=== PATIENT | male | born 1945 | race Hispanic/Latino ===

== ENCOUNTER 2020-06-26 04:12 | Emergency (ER) | payer OTHER ==
--- OUTSIDE RECORDS SUMMARY | 2020-06-26 04:17 | XMS REPORT | Continuity of Care Document ---
:[address] [facility] t Address [address] [place] [place] [address] Care Team Providers Name Role Phone Herve Encarnacion Primary Care Physician Reynold Rendon Attending Clinician SHIV Attending Clinician Unavailable GUSTAVO JASON Attending Clinician Unavailable KILLIAN Attending Clinician Unavailable Tracey MORA Admitting Clinician Unavailable Leonor NOLAN Admitting Clinician Unavailable Payers Payer Name Policy Type Policy Number Effective Date Expiration Date S ource Problems Condition Condition Condition Status Onset Resolution Last Treating Co mments Source Name Details Category Date Date Treatment Clinician Date COPD COPD Disease Active 2017-[address] [facility] exacerb[facility] exacerbati 0-14 [facility] - on on 00:00: Medical 00 Center Pneumonia Pneumonia Disease Active 2017-[address] [facility] due to due to 0-14 [facility] - infectious infectious 00:00: Me dical organism organism 00 Center Febrile Febrile Disease Active 2017-[address] [facility] illness illness 0-13 [facility] - 00:[facility]: [facility] [place] Aspiration Aspiration Disease Active [facility] pneumonia pneumonia 10-18 [facility] - 00:00: Medical 00 [place] Hypoxemia Hypoxemia Disease Active [facility] 10-17 [facility] 00:[facility]: [facility] 00 [place] Allergies, Adverse Reactions, Alerts Allergy Allergy Status Severity Reaction(s) Onset Inactive Treating Comm ents Source Name Type Date Date Clinician [place] Propensi Active Itching [facility] Juice ty to 10-17 [facility] - adverse 00:00: Medical reaction 00 Center s Aspirin Propensi Active Hives [facility] ty to 07-28 [facility] - adverse 00:00: Medical reaction 00 [place] s Penicill Drug Active Shortness Of [facility] ins Allergy Breath 07-28 [facility] - 00:00: Medical 00 [place] Penicill DA Active [facility] ins 3-17 Clear 00:00: Celis 00 [facility] aspirin DA Active [facility] 3-17 Clear 00:00: Celis 00 [facility] azithrom DA Active [facility] ycin 3-17 Clear 00:00: Celis 00 [facility] Family History Family Member Diagnosis Comments Start Date Stop Date Source Other Colon cancer [facility] Natural sister Breast cancer [facility] Social History Social Habit Start Date Stop Date Quantity Comments Source Sex Assigned At [facility] Alcohol intake 2019-05-30 2019-05-30 [facility] - 00:[facility]00 00:00:00 alcohol (finding) [facility] Tobacco use and 2019-05-30 2019-05-30 Never used [facility] - exposure 00:00:00 00:00:00 [facility] Alcohol Comment 2017-10-17 2017-10-17 [facility] Smoking Status Start Date Stop Date Source Former smoker 2019-05-30 00:00:00 2019-05-30 00:00:00 [facility] Ordered Filled Start Stop Current Ordering Indication Dosage Frequency Signature Comments Components Source Medication Medication Date Date Medication? Clinician (SIG) Name Name omeprazole Yes [facility] (PRILOSEC[facility] 306 [facility] - 20 MG 00:00: Medical capsule 00 [place] gabapentin 2017-03 Yes 300mg Q.25D Take [address] (NEURONTIN) 0-14 mg by [facility] - 300 MG 13:12: mouth 4 Medical capsule 35 (four) Center times daily . losartan 2017-03 Yes 25mg QD Take [address] (COZAAR) 25 0-14 by mouth [facility] - MG tablet 13:12: daily. Medica l 35 [place] glipiZIDE 2017-03 Yes 5mg Take [address] (GLUCOTROL) 0-14 by mouth 2 [facility] - 5 MG tablet 13:12: (two) Medic al 35 times Center daily before meals. atorvastati 2017-03 Yes 10mg QD Take [address] n (LIPITOR) 0-14 by mouth Luke s - 10 MG 13:12: nightly. Medical tablet 35 [place] meloxicam Yes . [facility] (MOBIC) 7.5 8-22 [facility] - MG tablet 00:00: Medical 00 [place] metFORMIN Yes 1000mg 1,[address] (GLUCOPHAGE 8-22 (two) [facility] - ) 500 MG 00:00: times Medical tablet 00 daily with Center breakfast and dinner . citalopram Yes Q.5D 2 (two) [facility] (CELEXA) 20 7-13 times [facility] - MG tablet 00:00: daily . Medic al 00 [place] albuterol Yes every 6 [facility] (PROVENTIL) 7-01 (six) [facility] - 2.5 mg /3 00:00: hours as Medi jovita mL (0.083 00 needed . Center %) nebulizer solution ANORO Yes 1{puff} QD [address] ELLIPTA 5-29 daily . [facility] - 62.5-25 00:00: Medical mcg/actuati 00 Center on DsDv albuterol-i Yes 2{puff} Inhale [address] pratropium 5-08 puffs by [facility] - (COMBIVENT 00:00: mouth via Me dical RESPIMAT) 00 inhaler Center 20-100 every 6 mcg/actuati (six) on Mist hours as inhaler needed for Wheezing. Immunizations Ordered Immunization Filled Immunization Date Status Commen ts Source Name Name Pneumococcal 2017-10-[address] [facility] - Polysaccharide 00:00:00 Medical Ce nter (Pneumovax) Procedures This patient has no known procedures. Plan of Care Planned Activity Planned Date Details Comments Source Future Scheduled 2019-11-[address] [facility] - Test 00:00:00 (#1) [code = Medical Center INFLUENZA VACCINE (#1)] Future Scheduled 2018-04-[address] [facility] - Test 00:00:00 measurement Medical Center (procedure) [code = 20400247] Future Scheduled 2018-03-[address] [facility] - Test 00:00:00 WELLNESS (YEAR 2 or Medical Center FIRST YEAR if no IPPE) [code = MEDICARE ANNUAL WELLNESS (YEAR 2 or FIRST YEAR if no IPPE)] Future Scheduled 1955-08-[address] DIAB[address] EYE EXAM [facility] - Test 00:00:00 [code = DIABETIC EYE Medical Center EXAM] Future Scheduled 1955-08-16 Urine screening for [facility] - Test 00:00:00 protein (procedure) [facility] [code = 414112306] Future Scheduled [address] [facility] - Test 00:00:00 [facility] colon (procedure) [code = 574967661] Encounters Start End Encounter Admission Attending Care Care Encounter Source Date/Time Date/Time Type Type Clinicians Facility Department ID 2020-02-20 Outpatient [facility] [id number] [facility] BL 10:36:28 2020-05-20 2020-05-20 Emergency E [facility] [id number] [facility]BL 15:55:00 15:55:00 2020-01-16 2020-01-16 Outpatient [facility]BL [facility] [id number] [facility]BL 08:00:00 08:00:00 2019-12-05 2019-12-05 [facility] [id number] 00:00:00 00:00:00 [facility] [id number] Surgical [id number] Specialti [phone] es [address] [place] 2019-10-10 2019-10-10 [facility] [id number] 00:00:00 00:00:00 [facility] [id number] Surgical [id number] Specialti [phone] es 198 [place] 2019-07-29 2019-08-03 Office [facility] [id number] 08:29:01 14:21:19 Visit [facility] [id number] Surgical [id number] Specialti [phone] es 198 [place] Results Test Description Test Time Test Comments Results Result Comments Source GLUCOSE BEDSIDE TESTING 2020-02-27 11:19:00 Test Item Value Reference Range Interpretation Comme nts GLUCOSE BEDSIDE TESTING (test code = GLUBED) 217 mg/dL 70-110 H GLUCOSE BEDSIDE [id number] 07:40:00 Test Item Value Reference Range Interpretation Comments GLUCOSE BEDSIDE TESTING (test code 113 mg/dL 70-110 H = GLUBED) CBC W/AUTO [id number] 06:30:00 Test Item Value Reference Range Interpretation Comments WHITE BLOOD CELL (test code = 12.8 K/mm3 3.5-11.0 H WBC) RED BLOOD CELL (test code = 3.84 M/mm3 4.70-6.10 L RBC) HEMOGLOBIN (test code = HGB) 11.5 G/DL 12.3-15.9 L HEMATOCRIT (test code = HCT) 35.4 % 35.8-46.7 L MEAN CELL VOLUME (test code = 92.2 Fl 86.3-98.9 N MCV) MEAN CELL HGB (test code = MCH) 29.9 pg 28.9-34.4 N MEAN CELL HGB CONCETRATION 32.5 G/DL 32.1-34.5 N (test code = MCHC) RED CELL DISTRIBUTION WIDTH 13.1 SD 11.5-14.5 N (test code = RDW) PLATELET COUNT (test code = 235 K/mm3 150-450 N PLT) MEAN PLATELET VOLUME (test code 10.60 fL 7.0-9.6 H = MPV) NEUTROPHIL % (test code = NT%) 72.2 % 40-76 N IMMATURE GRANULOCYTE % (test 0.5 % 0.0-5.0 N code = IG%) LYMPHOCYTE % (test code = LY%) 15.3 % 20.5-51.1 L MONOCYTE % (test code = MO%) 9.7 % 1.7-9.3 H EOSINOPHIL % (test code = EO%) 2.1 % 0.0-6.0 N BASOPHIL % (test code = BA%) 0.2 % 0.0-2.0 N NUCLEATED RBC % (test code = 0.0 /100WBC% 0.0-1.0 N NRBC%) NEUTROPHIL # (test code = NT#) 9.3 K/mm3 1.8-7.6 H IMMATURE GRANULOCYTE # (test 0.06 x10 3/uL 0.00-0.03 H code = IG#) LYMPHOCYTE # (test code = LY#) 2.0 K/mm3 0.6-3.0 N MONOCYTE # (test code = MO#) 1.3 K/mm3 0.2-1.5 N EOSINOPHIL # (test code = EO#) 0.3 K/mm3 0.0-0.4 N BASOPHIL # (test code = BA#) 0.0 K/mm3 0.0-0.2 N NUCLEATED RBC # (test code = 0.0 K/mm3 0.00-0.01 N NRBC#) MANUAL DIFF REQUIRED (test code NO DIFF/SCN CRITERIA = MDIFF) BASIC METABOLIC [id number] 06:05:00 Test Item Value Reference Range Interpretation Comments SODIUM (test code = NA) 136 mmol/L 134-147 N POTASSIUM (test code = 3.8 mmol/L 3.4-5.0 N K) CHLORIDE (test code = 101 mmol/L 100-108 N CL) CARBON DIOXIDE (test 33 mmol/L 21-32 H code = CO2) ANION GAP (test code = 2.0 GAP calc 4.0-15.0 L GAP) GLUCOSE (test code = 117 MG/DL 70-110 H GLU) BLOOD UREA NITROGEN 23 MG/DL 7-18 H (test code = BUN) GLOMERULAR FILTRATION >=60 max estimate >60 RATE (test code = GFR) estGFR CREATININE (test code = 0.5 MG/DL 0.8-1.3 L CREAT) CALCIUM (test code = CA) 8.5 MG/DL 8.5-10.1 N CBC W/AUTO [id number] 06:04:00 Test Item Value Reference Range Interpretation Comments WHITE BLOOD CELL (test code = WBC) 12.8 K/mm3 3.5-11.0 H RED BLOOD CELL (test code = RBC) 3.84 M/mm3 4.70-6.10 L HEMOGLOBIN (test code = HGB) 11.5 G/DL 12.3-15.9 L HEMATOCRIT (test code = HCT) 35.4 % 35.8-46.7 L MEAN CELL VOLUME (test code = MCV) 92.2 Fl 86.3-98.9 N MEAN CELL HGB (test code = MCH) 29.9 pg 28.9-34.4 N MEAN CELL HGB CONCETRATION (test 32.5 G/DL 32.1-34.5 N code = MCHC) RED CELL DISTRIBUTION WIDTH (test SD 11.5-14.5 N code = RDW) PLATELET COUNT (test code = PLT) K/mm3 150-450 N MEAN PLATELET VOLUME (test code = fL 7.0-9.6 H MPV) NEUTROPHIL % (test code = NT%) % 40-76 N IMMATURE GRANULOCYTE % (test code % 0.0-5.0 N = IG%) LYMPHOCYTE % (test code = LY%) % 20.5-51.1 L MONOCYTE % (test code = MO%) % 1.7-9.3 H EOSINOPHIL % (test code = EO%) % 0.0-6.0 N BASOPHIL % (test code = BA%) % 0.0-2.0 N NUCLEATED RBC % (test code = /100WBC% 0.0-1.0 N NRBC%) NEUTROPHIL # (test code = NT#) K/mm3 1.8-7.6 H IMMATURE GRANULOCYTE # (test code x10 3/uL 0.00-0.03 H = IG#) LYMPHOCYTE # (test code = LY#) K/mm3 0.6-3.0 N MONOCYTE # (test code = MO#) K/mm3 0.2-1.5 N EOSINOPHIL # (test code = EO#) K/mm3 0.0-0.4 N BASOPHIL # (test code = BA#) K/mm3 0.0-0.2 N NUCLEATED RBC # (test code = K/mm3 0.00-0.01 N NRBC#) MANUAL DIFF REQUIRED (test code = DIFF/SCN CRITERIA MDIFF) GLUCOSE BEDSIDE [id number] 20:11:00 Test Item Value Reference Range Interpretation Comments GLUCOSE BEDSIDE TESTING (test code 248 mg/dL 70-110 H = GLUBED) GLUCOSE BEDSIDE [id number] 16:36:00 Test Item Value Reference Range Interpretation Comments GLUCOSE BEDSIDE TESTING (test code 296 mg/dL 70-110 H = GLUBED) GLUCOSE BEDSIDE [id number] 13:00:00 Test Item Value Reference Range Interpretation Comments GLUCOSE BEDSIDE TESTING (test code 275 mg/dL 70-110 H = GLUBED) GLUCOSE BEDSIDE [id number] 08:16:00 Test Item Value Reference Range Interpretation Comments GLUCOSE BEDSIDE TESTING (test code 149 mg/dL 70-110 H = GLUBED) GLUCOSE BEDSIDE [id number] 20:13:00 Test Item Value Reference Range Interpretation Comments GLUCOSE BEDSIDE TESTING (test code 201 mg/dL 70-110 H = GLUBED) GLUCOSE BEDSIDE [id number] 16:29:00 Test Item Value Reference Range Interpretation Comments GLUCOSE BEDSIDE TESTING (test code 222 mg/dL 70-110 H = GLUBED) GLUCOSE BEDSIDE [id number] 11:21:00 Test Item Value Reference Range Interpretation Comments GLUCOSE BEDSIDE TESTING (test code 222 mg/dL 70-110 H = GLUBED) GLUCOSE BEDSIDE [id number] 07:45:00 Test Item Value Reference Range Interpretation Comments GLUCOSE BEDSIDE TESTING (test code 187 mg/dL 70-110 H = GLUBED) GLUCOSE BEDSIDE [id number] 20:35:00 Test Item Value Reference Range Interpretation Comments GLUCOSE BEDSIDE TESTING (test code 225 mg/dL 70-110 H = GLUBED) GLUCOSE BEDSIDE [id number] 16:43:00 Test Item Value Reference Range Interpretation Comments GLUCOSE BEDSIDE TESTING (test code 237 mg/dL 70-110 H = GLUBED) GLUCOSE BEDSIDE [id number] 11:40:00 Test Item Value Reference Range Interpretation Comments GLUCOSE BEDSIDE TESTING (test code 218 mg/dL 70-110 H = GLUBED) GLUCOSE BEDSIDE [id number] 08:45:00 Test Item Value Reference Range Interpretation Comments GLUCOSE BEDSIDE TESTING (test code 219 mg/dL 70-110 H = GLUBED) GLUCOSE BEDSIDE [id number] 20:24:00 Test Item Value Reference Range Interpretation Comments GLUCOSE BEDSIDE TESTING (test code 124 mg/dL 70-110 H = GLUBED) ALPHA 1 [id number] 17:09:00 Test Item Value Reference Range Interpretation Comments ALPHA 1 ANTITRYPSIN 258 mg/dL 101-187 A Performe d At: DA (test code = [id number]) LabCo rp [id number] [facility] [address] [place], [place] [id number] h CN MD Ph:[phone] GLUCOSE BEDSIDE [id number] 16:45:00 Test Item Value Reference Range Interpretation Comments GLUCOSE BEDSIDE TESTING (test code 224 mg/dL 70-110 H = GLUBED) GLUCOSE BEDSIDE [id number] 14:15:00 Test Item Value Reference Range Interpretation Comments GLUCOSE BEDSIDE TESTING (test code 374 mg/dL 70-110 H = GLUBED) GLUCOSE BEDSIDE [id number] 11:13:00 Test Item Value Reference Range Interpretation Comments GLUCOSE BEDSIDE TESTING (test code 257 mg/dL 70-110 H = GLUBED) GLUCOSE BEDSIDE [id number] 07:30:00 Test Item Value Reference Range Interpretation Comments GLUCOSE BEDSIDE TESTING (test code 209 mg/dL 70-110 H = GLUBED) VANCOMYCIN [id number] 20:42:00 Test Item Value Reference Range Interpretation Comments VANCOMYCIN TROUGH (test code = 10.3 mcG/ML 10-20 N VANCT) GLUCOSE BEDSIDE [id number] 16:42:00 Test Item Value Reference Range Interpretation Comments GLUCOSE BEDSIDE TESTING (test code 190 mg/dL 70-110 H = GLUBED) GLUCOSE BEDSIDE [id number] 12:09:00 Test Item Value Reference Range Interpretation Comments GLUCOSE BEDSIDE TESTING (test code 187 mg/dL 70-110 H = GLUBED) GLUCOSE BEDSIDE [id number] 07:41:00 Test Item Value Reference Range Interpretation Comments GLUCOSE BEDSIDE TESTING (test code 159 mg/dL 70-110 H = GLUBED) Novel Coronavirus 07:25:00 Test Item Value Reference Range Interpretation Comments Novel Coronavirus Negative Negative Positive r esults are 2019 Inhouse (test indicativ e of the presence code = [id number]) ofSARS-CoV -2 RNA, clinical correlation wit h patient historyand othe r diagnostic info rmation is necessary to determinepatien t infection status. Positiv e results do not rule out bacterial infection or co -infection with other viru ses. Negative result s do not preclude SARS-C oV-2 infection andsh ould not be used as the anmol e basis for patient managementdecis ions. Negative result s must be combined with otherclinical observations, p atient history, and epidemiological information . Detection of SARS-CoV-2 RNA may be affe cted bysample collec tion methods, storag e conditions, and /or stageof infection. Shaista l RNA mutations, vacc inations, antiviraltherap eutics, antibiotics, chemotherapeuti c orimmunosuppres valerie drugs have not been e valuated for effectson d etection. Results are for the identification of SARS-CoV-2 RNA usingthe Crowell M2000 Sy stem under the FDA Emergen cy UseAuthorizatio n. The testing is perf ormed by personneltraine d in the procedures for the Tonx000 molecular diagnostic SARS-CoV-2 assa y in vitro. Novel Coronavirus 07:24:00 Test Item Value Reference Range Interpretation Comments Novel Coronavirus Negative Negative Positive r esults are 2019 Inhouse (test indicativ e of the presence code = [id number]) ofSARS-CoV -2 RNA, clinical correlation wit h patient historyand othe r diagnostic info rmation is necessary to determinepatien t infection status. Positiv e results do not rule out bacterial infection or co -infection with other viru ses. Negative result s do not preclude SARS-C oV-2 infection andsh ould not be used as the anmol e basis for patient managementdecis ions. Negative result s must be combined with otherclinical observations, p atient history, and epidemiological information . Detection of SARS-CoV-2 RNA may be affe cted bysample collec tion methods, storag e conditions, and /or stageof infection. Shaista l RNA mutations, vacc inations, antiviraltherap eutics, antibiotics, chemotherapeuti c orimmunosuppres valerie drugs have not been e valuated for effectson d etection. Results are for the identification of SARS-CoV-2 RNA usingthe Crowell M2000 Sy stem under the FDA Emergen cy UseAuthorizatio n. The testing is perf ormed by personneltraine d in the procedures for the Crowell M2000 molecular diagnostic SARS-CoV-2 assa y in vitro. NT PRO-BRAIN NATRIURETIC [id number] 06:30:00 Test Item Value Reference Range Interpretation Comments NT PRO-BRAIN NATRIURETIC PEPTI 719 PG/ML 0-100 H (test code = PROBNP) HGB [id number] 06:21:00 Test Item Value Reference Range Interpretation Comments HEMOGLOBIN (test code = HGB) 14.3 G/DL 12.3-15.9 N HEMATOCRIT (test code = HCT) 44.3 % 35.8-46.7 N GLUCOSE BEDSIDE [id number] 21:12:00 Test Item Value Reference Range Interpretation Comments GLUCOSE BEDSIDE TESTING (test code 198 mg/dL 70-110 H = GLUBED) - CTA CHEST FOR [id number] 17:42:00 [facility] 1945 Sex: M Name: SANCHEZ SALGADO [facility] : 1945 Age/S: 74 / M [address] Unit #: [id number] Loc: [place] [address] Phys: Noble Rose AGACN Acct: [id number] Dis Date: Status: ADM IN PHONE #: [phone] Exam Date: 02/21/2020 4751 FAX #: Reason: Dyspnea EXAMS: CPT: [id number] [place] [id number] Location: CT Chest with Contrast PE protocol Indication: Dyspnea. COPD. Comparison: 07/02/16. Technique: Axial images were obtained through the chest post IV contrast. Sagittal, coronal, and oblique MIPS were obtained. This examwas performed according to our departmental dose-optimization program, which includes automated exposure control, adjustment of the mA and/or kV according to patient size and/or use of iterative reconstruction technique Contrast: Dosage are not available..Findings: The cardiac silhouette is not enlarged. No pericardial effusion. Enlarged subcarinal and precarinal lymph nodes. Nonenlarged mediastinal lymph nodes are present elsewhere. The aorta is normal in caliber and tapers in a normal fashion. Mild atherosclerotic involvement and calcification. Severe cystic bronchiectasis in the lower lobes and lingula has increased only slightly since prior exam of 07/02/2016. Consolidatingpatchy infiltrates are present in the left lower lobe, right lower lobe, and right hilar region, with small infiltrates elsewhere, consistent with pneumonia. Thickening of the bronchiectatic segments in the lower lobes and lingula, with small fluid levels, also consistent withpneumonia. No pleural effusion. Pulmonary arteries are unremarkable. No evidence of pulmonary embolism or obstruction. Skeletal structures are within norm al limits for age. Chest wall is unremarkable. Visualized intra-abdominal organs unremarkable. PAGE 1 Signed Report (CONTINUED) Name: SANCHEZ SALGADO [place] : 1945 Age/S: 74 / M [address] Unit #: [id number] Loc: [place] [address] Phys: Noble Rose Acct: [id number] Dis Date: Status: ADM IN PHONE #: [phone] Exam Date: 02/21/2020 1705 FAX #: Reason: Dyspnea EXAMS: CPT: [id number] [place] [id number] <Continued> Impression: 1. No evidence of pulmonary embolism. 2. COPD with bibasilar cystic bronchiectasis. Stable mediastinal adenopathy. 3. Bilateral pneumonia with patchy consolidation in both lower lobes, lingula, and right middle lobe. Minimal infiltrates in the upper lung diaz.. at 1741 Reported and signed by: Alex Mclaughlin M.D. CC: Yifan Pagan Jr, MD; Watson Saucedo MD; Noble Rose Technologist:Deion Freedman, RT(R)(CT)(MRI) CTDI: DLP: Trnscb Date/Time: 02/21/2020 (174) [email or web address] Orig Print D/T: S: 02/21/2020 (6550) PAGE 2 Signed ReportGLUCOSE BEDSIDE [id number] 16:03:00 Test Item Value Reference Range Interpretation Comments GLUCOSE BEDSIDE TESTING (test code 163 mg/dL 70-110 H = GLUBED) PaO2/[id number] 12:35:00 Test Item Value Reference Range Interpretation Comments PaO2/FiO2 (test code = [id number]) mm/Hg >200 [id number] 12:35:00 Test Item Value Reference Range Interpretation Comments ARTERIAL BLOOD GAS PH (test 7.32 pH units 7.35-7.45 L code = PHA) ARTERIAL BLOOD GAS PCO2 59 mmHg 35-45 H (test code = PCO2A) ARTERIAL BLOOD GAS PO2 63 mmHg 80-100 L (test code = PO2A) BICARBONATE TOTAL HCO3 30.1 mmol/L 22.0-26.0 H (test code = HCO3) BASE EXCESS (test code = 2.4 mmol/L -3.0-3.0 N VERONICA) ABG O2 SATURATION (test 92 % 90-100 N code = SATA) FIO2 (test code = FIO2A) 36 % (calc) 21-100 N ABG VENT MODE (test code = Nasal Cannula Vent Mode MODEA) Descript ABG SITE (test code = Left Radial ARTKIT DESCRIPTION SITEA) MODIFIED VICKIE'S (test code Yes Circ.CHK POSITIVE = MODALL) TOTAL HGB (test code = THB) 15.2 GRAM/DL 12.0-18.0 N HGB O2 SAT (test code = 91.1 % (barb) 95.0-100.0 L HBOSAT) CARBOXYHEMOGLOBIN (test 0.9 % 0.5-1.5 N code = HOHGBT) METHEMOGLOBIN (test code = 0.5 % 0.0-0.0 H METHGB) PaO2/[id number] 12:35:00 Test Item Value Reference Range Interpretation Comments PaO2/FiO2 (test code = [id number]) 175.0 mm/Hg >200 L [id number] 12:35:00 Test Item Value Reference Range Interpretation Comments ARTERIAL BLOOD GAS PH (test 7.32 pH units 7.35-7.45 L code = PHA) ARTERIAL BLOOD GAS PCO2 59 mmHg 35-45 H (test code = PCO2A) ARTERIAL BLOOD GAS PO2 63 mmHg 80-100 L (test code = PO2A) BICARBONATE TOTAL HCO3 30.1 mmol/L 22.0-26.0 H (test code = HCO3) BASE EXCESS (test code = 2.4 mmol/L -3.0-3.0 N VERONICA) ABG O2 SATURATION (test 92 % 90-100 N code = SATA) FIO2 (test code = FIO2A) 36 % (calc) 21-100 N ABG VENT MODE (test code = Nasal Cannula Vent Mode MODEA) Descript ABG SITE (test code = Left Radial ARTKIT DESCRIPTION SITEA) MODIFIED VICKIE'S (test code Yes Circ.CHK POSITIVE = MODALL) TOTAL HGB (test code = THB) 15.2 GRAM/DL 12.0-18.0 N HGB O2 SAT (test code = 91.1 % (barb) 95.0-100.0 L HBOSAT) CARBOXYHEMOGLOBIN (test 0.9 % 0.5-1.5 N code = HOHGBT) METHEMOGLOBIN (test code = 0.5 % 0.0-0.0 H METHGB) GLUCOSE BEDSIDE [id number] 11:19:00 Test Item Value Reference Range Interpretation Comments GLUCOSE BEDSIDE TESTING (test code 132 mg/dL 70-110 H = GLUBED) - XR CHEST 1 [id number] 10:17:00 [facility] : 1945 Sex: M Name: SANCHEZ SALGADO [facility] : 1945 Age/S: 74 / M [address] Unit #: [id number] Loc: [place] [address] Phys: Negin Hope MD Acct: [id number] Dis Date: Status: ADM IN PHONE #: [phone] Exam Date: 02/21/2020 1005 FAX #: Reason: hypoxemia EXAMS:CPT: [id number] XR CHEST 1 V [id number] Fluoro Time: DAP (Gy m2): Air Kerma (mGy): EXAM: Portable chest x-ray Dictation location: C3 COMPARISON: Chest x-ray on 05/27/[address] on 07/02/2016 INDICATION: hypoxemia DISCUSSION: Reticular nodular opacities at the lung bases are increased compared to the prior exam on 05/27/2017. A background of cystic bronchiectasis in the lingula and basal segments of the lower lobes is best seen on the prior CT on 07/02/2016. No pleural effusion or pneumothorax is seen. The cardiac silhouette is with in normal limits. No acute bony abnormalities are identified. IMPRESSION: There is a background of cystic bronchiectasis in the lingula and basal segments of the lower lobes which is best seen on the prior CT in June 2016. There is increased reticular and alveolar opacity at the lung bases compared to the prior chest x-ray in May 2017, suggestive of bronchiolitis and/or bibasilar pneumonia. Electronically Signedby Galindo Lira on 02/21/2020 at 1017 Reported and signed by: Ramin Lira M.D. CC: Yifan Pagan Jr, MD; Negin Hope MD; Watson Saucedo MD PAGE 1 Signed Report Name: SANCHEZ SALGADO [place] : 1945 Age/S: 74 / M [id number] Unit #: [id number] Loc: [place] [address] Phys: Negin Hope MD Acct: [id number] Dis Date: Status: ADM IN PHONE #: [phone] ExamDate: 02/21/2020 1005 FAX #: Reason: hypoxemia EXAMS: CPT: [id number] XR CHEST 1 V [id number] Fluoro Time: DAP (Gy m2): Air Kerma (mGy): <Continued> Technologist: Priti Mg RT(R)(CT) Trnscb Date/Time: 02/21/2020 (1017) [email or web address] Orig Print D/T: S: 02/21/2020 (6792) PAGE 2 Signed ReportGLUCOSE BEDSIDE [id number] 08:11:00 Test Item Value Reference Range Interpretation Comments GLUCOSE BEDSIDE TESTING (test code = 92 mg/dL 70-110 N GLUBED) CBC W/AUTO [id number] 05:13:00 Test Item Value Reference Range Interpretation Comments WHITE BLOOD CELL 10.4 K/mm3 3.5-11.0 N (test code = WBC) RED BLOOD CELL (test 4.52 M/mm3 4.70-6.10 L code = RBC) HEMOGLOBIN (test code 13.7 G/DL 12.3-15.9 N = HGB) HEMATOCRIT (test code 43.2 % 35.8-46.7 N = HCT) MEAN CELL VOLUME 95.6 Fl 86.3-98.9 N (test code = MCV) MEAN CELL HGB (test 30.3 pg 28.9-34.4 N code = MCH) MEAN CELL HGB 31.7 G/DL 32.1-34.5 L CONCETRATION (test code = MCHC) RED CELL DISTRIBUTION 14.1 SD 11.5-14.5 N WIDTH (test code = RDW) PLATELET COUNT (test 199 K/mm3 150-450 N code = PLT) MEAN PLATELET VOLUME 10.10 fL 7.0-9.6 H (test code = MPV) NEUTROPHIL % (test 83.3 % 40-76 H code = NT%) IMMATURE GRANULOCYTE 0.3 % 0.0-5.0 N % (test code = IG%) LYMPHOCYTE % (test 5.1 % 20.5-51.1 L code = LY%) MONOCYTE % (test code 9.4 % 1.7-9.3 H = MO%) EOSINOPHIL % (test 1.1 % 0.0-6.0 N code = EO%) BASOPHIL % (test code 0.8 % 0.0-2.0 N = BA%) NUCLEATED RBC % (test 0.0 /100WBC% 0.0-1.0 N code = NRBC%) NEUTROPHIL # (test 8.6 K/mm3 1.8-7.6 H code = NT#) IMMATURE GRANULOCYTE 0.03 x10 3/uL 0.00-0.03 N # (test code = IG#) LYMPHOCYTE # (test 0.5 K/mm3 0.6-3.0 L code = LY#) MONOCYTE # (test code 1.0 K/mm3 0.2-1.5 N = MO#) EOSINOPHIL # (test 0.1 K/mm3 0.0-0.4 N code = EO#) BASOPHIL # (test code 0.1 K/mm3 0.0-0.2 N = BA#) NUCLEATED RBC # (test 0.0 K/mm3 0.00-0.01 N code = NRBC#) MANUAL DIFF REQUIRED NO DIFF/SCN CRITERIA SLIDE R LUCIEW (test code = MDIFF) CONSISTA NT WITH AUTO DIFFERENTI AL. BASIC METABOLIC [id number] 04:24:00 Test Item Value Reference Range Interpretation Comments SODIUM (test code = NA) 137 mmol/L 134-147 N POTASSIUM (test code = 5.0 mmol/L 3.4-5.0 N K) CHLORIDE (test code = 106 mmol/L 100-108 N CL) CARBON DIOXIDE (test 29 mmol/L 21-32 N code = CO2) ANION GAP (test code = 2.0 GAP calc 4.0-15.0 L GAP) GLUCOSE (test code = 90 MG/DL 70-110 N GLU) BLOOD UREA NITROGEN 10 MG/DL 7-18 N (test code = BUN) GLOMERULAR FILTRATION >=60 max estimate >60 RATE (test code = GFR) estGFR CREATININE (test code = 0.7 MG/DL 0.8-1.3 L CREAT) CALCIUM (test code = CA) 8.3 MG/DL 8.5-10.1 L CBC W/AUTO [id number] 04:18:00 Test Item Value Reference Range Interpretation Comments WHITE BLOOD CELL (test code = WBC) 10.4 K/mm3 3.5-11.0 N RED BLOOD CELL (test code = RBC) 4.52 M/mm3 4.70-6.10 L HEMOGLOBIN (test code = HGB) 13.7 G/DL 12.3-15.9 N HEMATOCRIT (test code = HCT) 43.2 % 35.8-46.7 N MEAN CELL VOLUME (test code = MCV) 95.6 Fl 86.3-98.9 N MEAN CELL HGB (test code = MCH) 30.3 pg 28.9-34.4 N MEAN CELL HGB CONCETRATION (test 31.7 G/DL 32.1-34.5 L code = MCHC) RED CELL DISTRIBUTION WIDTH (test SD 11.5-14.5 N code = RDW) PLATELET COUNT (test code = PLT) 199 K/mm3 150-450 N MEAN PLATELET VOLUME (test code = fL 7.0-9.6 H MPV) NEUTROPHIL % (test code = NT%) % 40-76 H IMMATURE GRANULOCYTE % (test code % 0.0-5.0 N = IG%) LYMPHOCYTE % (test code = LY%) % 20.5-51.1 L MONOCYTE % (test code = MO%) % 1.7-9.3 H EOSINOPHIL % (test code = EO%) % 0.0-6.0 N BASOPHIL % (test code = BA%) % 0.0-2.0 N NUCLEATED RBC % (test code = /100WBC% 0.0-1.0 N NRBC%) NEUTROPHIL # (test code = NT#) K/mm3 1.8-7.6 H IMMATURE GRANULOCYTE # (test code x10 3/uL 0.00-0.03 N = IG#) LYMPHOCYTE # (test code = LY#) K/mm3 0.6-3.0 L MONOCYTE # (test code = MO#) K/mm3 0.2-1.5 N EOSINOPHIL # (test code = EO#) K/mm3 0.0-0.4 N BASOPHIL # (test code = BA#) K/mm3 0.0-0.2 N NUCLEATED RBC # (test code = K/mm3 0.00-0.01 N NRBC#) MANUAL DIFF REQUIRED (test code = DIFF/SCN CRITERIA MDIFF) GLUCOSE BEDSIDE [id number] 19:58:00 Test Item Value Reference Range Interpretation Comments GLUCOSE BEDSIDE TESTING (test code 179 mg/dL 70-110 H = GLUBED) GLUCOSE BEDSIDE [id number] 16:49:00 Test Item Value Reference Range Interpretation Comments GLUCOSE BEDSIDE TESTING (test code = 97 mg/dL 70-110 N GLUBED) GLUCOSE BEDSIDE [id number] 12:16:00 Test Item Value Reference Range Interpretation Comments GLUCOSE BEDSIDE TESTING (test code 128 mg/dL 70-110 H = GLUBED) - XR KNEE 1 OR 2 V [id number] 11:06:00 [facility] 1945 Sex: M Name: SANCHEZ SALGADO [place] : 1945 Age/S: 74 / M [address] Unit #: [id number] Loc: [place] [address] Phys: Watson Saucedo MD Acct: [id number] Dis Date: Status: ADM IN PHONE #: [phone] Exam Date: 02/20/2020 1102 FAX #: Reason: POST OP EXAMS:CPT: [id number] XR KNEE 1 OR 2 V [place] [id number] Fluoro Time: DAP (Gy m2): Air Kerma (mGy): LOCATION: T18 EXAM: - XRKNEE 1 OR 2 V LT INDICATION: POST OP, COMPARISON: None. TECHNIQUE: AP and lateral radiographs of the left knee FINDINGS: Patient status post left total knee arthroplasty. No complication of the hardware seen. No fractures identified. Expected subcutaneous air and soft tissue swelling of the knee postoperatively. IMPRESSION: Satisfactory postop appearance of left total knee arthroplasty. at 1106 Reported and signed by: Siddhartha Wood M.D. CC: Yifan Pagan Jr, MD; Watson Saucedo MD PAGE 1 Signed Report Name: SANCHEZ SALGADO [place] : 1945 Age/S: 74 / M [address] Unit #: [id number] Loc: [place] [address] Phys: Praneeth Saucedo MD Acct: [id number] Dis Date:Status: ADM IN PHONE #: [phone] Exam Date: 02/20/2020 110 FAX #: Reason: POST OP EXAMS: CPT: [id number] XR KNEE 1 [place] 2 [place] [id number] Fluoro Time: DAP (Gy m2): Air Kerma (mGy): <Continued> Technologist: Chata Faulkner, RT(R) Trnscb Date/Time: 02/20/2020 (8686) [email or web address] Orig Print D/T: S: 02/20/2020 (2719) PAGE 2 Signed ReportBASIC METABOLIC [id number] 07:26:00 Test Item Value Reference Range Interpretation Comments SODIUM (test code = NA) 137 mmol/L 134-147 N POTASSIUM (test code = 3.8 mmol/L 3.4-5.0 N K) CHLORIDE (test code = 104 mmol/L 100-108 N CL) CARBON DIOXIDE (test 30 mmol/L 21-32 N code = CO2) ANION GAP (test code = 3.0 GAP calc 4.0-15.0 L GAP) GLUCOSE (test code = 99 MG/DL 70-110 N GLU) BLOOD UREA NITROGEN 9 MG/DL 7-18 N (test code = BUN) GLOMERULAR FILTRATION >=60 max estimate >60 RATE (test code = GFR) estGFR CREATININE (test code = 0.6 MG/DL 0.8-1.3 L CREAT) CALCIUM (test code = CA) 8.5 MG/DL 8.5-10.1 N CBC W/AUTO [id number] 07:19:00 Test Item Value Reference Range Interpretation Comments WHITE BLOOD CELL (test code = 9.3 K/mm3 3.5-11.0 N WBC) RED BLOOD CELL (test code = 4.74 M/mm3 4.70-6.10 N RBC) HEMOGLOBIN (test code = HGB) 14.2 G/DL 12.3-15.9 N HEMATOCRIT (test code = HCT) 42.9 % 35.8-46.7 N MEAN CELL VOLUME (test code = 90.5 Fl 86.3-98.9 N MCV) MEAN CELL HGB (test code = MCH) 30.0 pg 28.9-34.4 N MEAN CELL HGB CONCETRATION 33.1 G/DL 32.1-34.5 N (test code = MCHC) RED CELL DISTRIBUTION WIDTH 13.7 SD 11.5-14.5 N (test code = RDW) PLATELET COUNT (test code = 237 K/mm3 150-450 N PLT) MEAN PLATELET VOLUME (test code 9.90 fL 7.0-9.6 H = MPV) NEUTROPHIL % (test code = NT%) 79.0 % 40-76 H IMMATURE GRANULOCYTE % (test 0.3 % 0.0-5.0 N code = IG%) LYMPHOCYTE % (test code = LY%) 10.1 % 20.5-51.1 L MONOCYTE % (test code = MO%) 7.0 % 1.7-9.3 N EOSINOPHIL % (test code = EO%) 3.0 % 0.0-6.0 N BASOPHIL % (test code = BA%) 0.6 % 0.0-2.0 N NUCLEATED RBC % (test code = 0.0 /100WBC% 0.0-1.0 N NRBC%) NEUTROPHIL # (test code = NT#) 7.4 K/mm3 1.8-7.6 N IMMATURE GRANULOCYTE # (test 0.03 x10 3/uL 0.00-0.03 N code = IG#) LYMPHOCYTE # (test code = LY#) 0.9 K/mm3 0.6-3.0 N MONOCYTE # (test code = MO#) 0.7 K/mm3 0.2-1.5 N EOSINOPHIL # (test code = EO#) 0.3 K/mm3 0.0-0.4 N BASOPHIL # (test code = BA#) 0.1 K/mm3 0.0-0.2 N NUCLEATED RBC # (test code = 0.0 K/mm3 0.00-0.01 N NRBC#) MANUAL DIFF REQUIRED (test code NO DIFF/SCN CRITERIA = MDIFF) PROTHROMBIN [id number] 07:15:00 Test Item Value Reference Range Interpretation Comments PT PATIENT (test code = PTP) 11.0 SECONDS 9.3-12.9 N INTERNATIONAL NORMAL RATIO 0.97 INR Unit 0.8-1.2 N (test code = INR) THROMBOPLASTIN TIME [id number] 07:15:00 Test Item Value Reference Range Interpretation Comments THROMBOPLASTIN TIME PARTIAL 35.9 SECONDS 26-35 H (test code = PTT) GLUCOSE BEDSIDE [id number] 06:58:00 Test Item Value Reference Range Interpretation Comments GLUCOSE BEDSIDE TESTING (test code 104 mg/dL 70-110 N = GLUBED) COVID 19 INHOUSE [id number] 06:31:00 Test Item Value Reference Range Interpretation Comments COVID 19 INHOUSE AG NEGATIVE Negative Per manu facturer, (test code = negative result s should [id number]) be treated aspr esumptive and, if inconsi stent with clinical signs andsymptoms or necessary for patient man agement, should betested with an alternative mol ecular assay. Negative resultsdo not preclude SA RS-CoV-2 infection and s hould not be usedas the s ole basis for patient man agement decisions. Neg ative results should be considered in t he context of apatient's r ecent exposures, hist ory, presence of cli nicalsigns and symptoms co nsistent with COVID-19. UA RFLX MICR CULT IF [id number] 06:15:00 Test Item Value Reference Range Interpretation Comments UA COLOR (test code = COLU) YELLOW discript YEL/STRAW UA APPEARANCE (test code = CLEAR discript CLEAR APPU) UA GLUCOSE DIPSTICK (test NEGATIVE mg/dL NEG code = DGLUU) UA BILIRUBIN DIPSTICK (test NEGATIVE mg/dL NEG code = BILU) UA KETONE DIPSTICK (test NEGATIVE mg/dL NEG code = KETU) UA SPECIFIC GRAVITY (test 1.025 SG 1.005-1.030 code = SGU) UA BLOOD DIPSTICK (test NEGATIVE mg/DL NEG code = SOLA) UA PH DIPSTICK (test code = 6.0 pH UNITS 5.0-7.0 JOSE) UA PROTEIN DIPSTICK (test NEGATIVE mg/dL NEG code = PROU) UA UROBILINIOGEN DIPSTICK 0.2 mg/dL <2.0 (test code = URO) UA NITRITE DIPSTICK (test NEGATIVE SCREEN NEG code = ATILIO) UA LEUKOCYTE ESTERASE NEGATIVE Leuk/mcL NEGATIVE DIPSTICK (test code = LEUU) Indication for culture: RiskForSepsis-no oth srcSOURCE OF URINE: CLEAN CATCH UA RFLX MICR CULT IF [id number] 06:14:00 Test Item Value Reference Range Interpretation Comments UA COLOR (test code = COLU) YELLOW discript YEL/STRAW UA APPEARANCE (test code = CLEAR discript CLEAR APPU) UA GLUCOSE DIPSTICK (test NEGATIVE mg/dL NEG code = DGLUU) UA BILIRUBIN DIPSTICK (test NEGATIVE mg/dL NEG code = BILU) UA KETONE DIPSTICK (test NEGATIVE mg/dL NEG code = KETU) UA SPECIFIC GRAVITY (test 1.025 SG 1.005-1.030 code = SGU) UA BLOOD DIPSTICK (test NEGATIVE mg/DL NEG code = SOLA) UA PH DIPSTICK (test code = 6.0 pH UNITS 5.0-7.0 JOSE) UA PROTEIN DIPSTICK (test NEGATIVE mg/dL NEG code = PROU) UA UROBILINIOGEN DIPSTICK 0.2 mg/dL <2.0 (test code = URO) UA NITRITE DIPSTICK (test NEGATIVE SCREEN NEG code = ATILIO) UA LEUKOCYTE ESTERASE NEGATIVE Leuk/mcL NEGATIVE DIPSTICK (test code = LEUU) UA CULTURE NEEDED? (test Criteria Culture CHK code = UACULT) Indication for culture: RiskForSepsis-no oth srcSOURCE OF URINE: CLEAN CATCH B-TYPE NATRIURETIC FACTOR (BNP)[id number] 12:44:00 Test Item Value Reference Range Interpretation Comments B-TYPE NATRIURETIC PEPTIDE (BEAKER) 26 pg/mL 0-100 (test code = 700) RAPID TROPONIN [id number] 12:44:00 Test Item Value Reference Range Interpretation Comments RAPID TROPONIN I (BEAKER) (test code < ng/mL <0.05 = 1483) [id number] 12:44:00 Test Item Value Reference Range Interpretation Comments D-DIMER QUANTITATIVE (BEAKER) 0.71 MG/L FEU <0.50 H (test code = 671) REGARDING D-DIMER RESULTS: Results of this D-Dimer test should always be interpreted in conjunction with the patient's medical history, clinical presentation and other findings. DVT clinical diagnosis should not be based on the results of INNOVANCE D-Dimer alone.PT/[id number] 12:44:00 Test Item Value Reference Range Interpretation Comments PROTIME (BEAKER) (test code = 10.6 seconds 9.8-12.0 759) INR (BEAKER) (test code = 370) 1.0 <=5.9 PARTIAL THROMBOPLASTIN TIME 31.8 seconds 25.8-34.5 (BEAKER) (test code = 760) RECOMMENDED COUMADIN/WARFARIN INR THERAPY RANGESSTANDARD DOSE: 2.0 - 3.0 Includes: PROPHYLAXIS forvenous thrombosis, systemic embolization; TREATMENT for venous thrombosis and/or pulmonary embolus.HIGH RISK: Target INR is 2.5-3.5 for patients with mechanical heart valves.BASIC METABOLIC [id number] 12:30:00 Test Item Value Reference Range Interpretation Comments SODIUM (BEAKER) (test 136 meq/L 135-148 code = 381) POTASSIUM (BEAKER) 4.2 meq/L 3.6-5.5 (test code = 379) CHLORIDE (BEAKER) 99 meq/L 98-106 (test code = 382) CO2 (BEAKER) (test 31 meq/L 24-32 code = 355) BLOOD UREA NITROGEN 11 mg/dL 10-26 (BEAKER) (test code = 354) CREATININE (BEAKER) 0.80 mg/dL 0.50-1.20 (test code = 358) GLUCOSE RANDOM 128 mg/dL 70-110 H (BEAKER) (test code = 652) CALCIUM (BEAKER) 8.0 mg/dL 8.5-10.5 L (test code = 697) EGFR (BEAKER) (test INSUFFIC IENT CLINICAL code = 1092) DATA TO CALCULA TE ESTIMATED GFR. CBC W/PLT COUNT & AUTO [id number] 12:25:00 Test Item Value Reference Range Interpretation Comments WHITE BLOOD CELL COUNT (BEAKER) 7.6 K/ L 4.0-10.0 (test code = 775) RED BLOOD CELL COUNT (BEAKER) 4.92 M/ L 4.20-5.80 (test code = 761) HEMOGLOBIN (BEAKER) (test code = 14.9 GM/DL 13.0-16.8 410) HEMATOCRIT (BEAKER) (test code = 44.3 % 40.0-50.0 411) MEAN CORPUSCULAR VOLUME (BEAKER) 90.2 fL 82.0-98.0 (test code = 753) MEAN CORPUSCULAR HEMOGLOBIN 30.3 pg 27.0-33.0 (BEAKER) (test code = 751) MEAN CORPUSCULAR HEMOGLOBIN CONC 33.6 GM/DL 32.0-36.0 (BEAKER) (test code = 752) RED CELL DISTRIBUTION WIDTH 14.5 % 10.3-14.2 H (BEAKER) (test code = 412) PLATELET COUNT (BEAKER) (test 229 K/CU MM 150-430 code = 756) MEAN PLATELET VOLUME (BEAKER) 7.7 fL 6.5-10.5 (test code = 754) NEUTROPHILS RELATIVE PERCENT 75 % (BEAKER) (test code = 429) LYMPHOCYTES RELATIVE PERCENT 14 % (BEAKER) (test code = 430) MONOCYTES RELATIVE PERCENT 7 % (BEAKER) (test code = 431) EOSINOPHILS RELATIVE PERCENT 3 % (BEAKER) (test code = 432) BASOPHILS RELATIVE PERCENT 1 % (BEAKER) (test code = 437) NEUTROPHILS ABSOLUTE COUNT 5.72 K/ L 1.80-8.00 (BEAKER) (test code = 670) LYMPHOCYTES ABSOLUTE COUNT 1.10 K/ L 1.48-4.50 L (BEAKER) (test code = 414) MONOCYTES ABSOLUTE COUNT (BEAKER) 0.51 K/ L 0.00-1.30 (test code = 415) EOSINOPHILS ABSOLUTE COUNT 0.24 K/ L 0.00-0.50 (BEAKER) (test code = 416) BASOPHILS ABSOLUTE COUNT (BEAKER) 0.05 K/ L 0.00-0.20 (test code = 417) RAD, CHEST, 2 [id number] 11:30:00Reason for exam:->ASTHMAShould this be performed at the bedside?->NoFINAL REPORT INDICATION: ASTHMA COMPARISON: None TECHNIQUE: Frontal and lateral views of the chest. FINDINGS: Lungs and pleura: Mild bibasilar subsegmental atelectasis superimposed on background of honeycombing and reticulation. Focal wedge-shaped opacity within the left upper lobe, favored to represent air trapping and atelectasis. No effusion.Heart and mediastinum: Normal heart size. Unremarkable mediastinal contours.Osseous structures: No acute abnormality.Additional findings: None. Signed: Susan Morales MDReport Verified Date/Time: 05/30/2019 11:30:30 Reading Location:[facility] Radiology Reading Room SPUTUM CULTURE + GRAM STAIN 2018-01-09 12:57:00 Test Item Value Reference Range Interpretation Comments CULTURE (BEAKER) PSEUDOMONAS A 4+ Pseudomo stephanie (test code = 1095) AERUGINOSA aeruginos a Amikacin (test code Susceptible 0-16 S = 1) , Resistant <0 or >16 Aztreonam (test Susceptible 0-8 , S code = 32) Resistant <0 or >8 Cefepime (test code Susceptible 0-8 , S = 51) Resistant <0 or >8 Ceftazidime (test Susceptible 0-8 , S code = 27) Resistant <0 or >8 Ciprofloxacin (test Susceptible 0-1 , R code = 7) Resistant <0 or >1 Gentamicin (test Susceptible 0-4 , R code = 18) Resistant <0 or >4 Levofloxacin (test Susceptible 0-2 , R code = 22) Resistant <0 or >2 Piperacillin (test Susceptible 0-16 S code = 24) , Resistant <0 or >16 Piperacillin + Susceptible 0-16 S Tazobactam (test , Resistant <0 or code = 29) >16 Tobramycin (test Susceptible 0-4 , R code = 25) Resistant <0 or >4 CULTURE (BEAKER) PSEUDOMONAS A 4+ Pseudomo stephanie (test code = 1095) AERUGINOSA aeruginos aof a second type Amikacin (test code Susceptible 0-16 R = 1) , Resistant <0 or >16 Aztreonam (test Susceptible 0-8 , R code = 32) Resistant <0 or >8 Cefepime (test code Susceptible 0-8 , R = 51) Resistant <0 or >8 Ceftazidime (test Susceptible 0-8 , R code = 27) Resistant <0 or >8 Ciprofloxacin (test Susceptible 0-1 , R code = 7) Resistant <0 or >1 Gentamicin (test Susceptible 0-4 , R code = 18) Resistant <0 or >4 Levofloxacin (test Susceptible 0-2 , R code = 22) Resistant <0 or >2 Meropenem (test Susceptible 0-2 , R code = 34) Resistant <0 or >2 Piperacillin (test Susceptible 0-16 R code = 24) , Resistant <0 or >16 Piperacillin + Susceptible 0-16 S Tazobactam (test , Resistant <0 or code = 29) >16 Tobramycin (test Susceptible 0-4 , R code = 25) Resistant <0 or >4 GRAM STAIN RESULT <1+ WBCs (BEAKER) (test code = 1123) GRAM STAIN RESULT 5-10 epithelial (BEAKER) (test code cells = 353781) GRAM STAIN RESULT 1+ gram negative (BEAKER) (test code rods = 060407) GRAM STAIN RESULT <1+ gram positive (BEAKER) (test code cocci in pairs = 309491) GRAM STAIN RESULT <1+ gram positive (BEAKER) (test code rods = 427843) 4+ Normal respiratory neetu presentBLOOD [id number] 11:00:00 Test Item Value Reference Range Interpretation Comments CULTURE (BEAKER) (test No growth in 5 days code = 1095) BLOOD [id number] 11:00:00 Test Item Value Reference Range Interpretation Comments CULTURE (BEAKER) (test No growth in 5 days code = 1095) RESPIRATORY PANEL [id number] 09:18:00 Test Item Value Reference Range Interpretation Comments HUMAN METAPNEUMOVIRUS Not detected Not detected, (BEAKER) (test code = Equivocal 2683) RHINOVIRUS (BEAKER) Not detected Not detected, (test code = 2684) Equivocal INFLUENZA A (BEAKER) Not detected Not detected, (test code = 2685) Equivocal INFLUENZA A (NO SUBTYPE) Not detected, (test code = 3606) Equivocal INFLUENZA A SUBTYPE H1 Not detected, (BEAKER) (test code = Equivocal 2686) INFLUENZA A SUBTYPE H3 Not detected, (BEAKER) (test code = Equivocal 2687) INFLUENZA A SUBTYPE Not detected, H1-2009 (BEAKER) (test Equivocal code = 3198) INFLUENZA B (BEAKER) Not detected Not detected, (test code = 2688) Equivocal RESPIRATORY SYNCYTIAL Not detected Not detected, VIRUS (BEAKER) (test Equivocal code = 3199) PARAINFLUENZA VIRUS 1 Not detected Not detected, (BEAKER) (test code = Equivocal 2691) PARAINFLUENZA VIRUS 2 Not detected Not detected, (BEAKER) (test code = Equivocal 2692) PARAINFLUENZA VIRUS 3 Not detected Not detected, (BEAKER) (test code = Equivocal 2693) PARAINFLUENZA VIRUS 4 Not detected Not detected, (BEAKER) (test code = Equivocal 3200) ADENOVIRUS (BEAKER) Not detected Not detected, (test code = 2694) Equivocal CORONAVIRUS 229E Not detected Not detected, (BEAKER) (test code = Equivocal 3201) CORONAVIRUS HKU1 Not detected Not detected, Droplet (BEAKER) (test code = Equivocal isolat ion. 3202) Consider stopping antibiotics. CORONAVIRUS NL63 Not detected Not detected, (BEAKER) (test code = Equivocal 3203) CORONAVIRUS OC43 Detected Not detected, A Droplet (BEAKER) (test code = Equivocal isolat ion. 3204) Consider stopping antibiotics. BORDETELLA PERTUSSIS Not detected Not detected, (BEAKER) (test code = Equivocal 3205) CHLAMYDOPHILA PNEUMONIAE Not detected Not detected, (BEAKER) (test code = Equivocal 3206) MYCOPLASMA PNEUMONIAE Not detected Not detected, (BEAKER) (test code = Equivocal 3207) Other viruses and bacteria not targeted by this PCR panel cannot be excluded; therefore clinical correlation and follow up of serology, culture results, and other molecular studies is required. The results are not intended to be used as the sole means for clinical diagnosis or patient management decisions. This sample was tested at the [facility] using the [employer] Respiratory Panel. It is FDA cleared and has been verified and approved by the [facility] for clinical use on nasal swab specimens. It is not FDA-cleared for use on bronchial wash/lavage samples. However, for this sample type, validation was performed and test characteristics were determined and approved, by [facility] for clinical use under the Clinical Laboratory Improvement Amendments (CLIA) of 1988 requirements. Therefore, FDA clearance isnot required. This laboratory is CLIA- certified and [employer] ([employer])-accredited to perform high complexity testing.STREP PNEUMONIAE [id number] 11:42:00 Test Item Value Reference Range Interpretation Comments STREP PNEUMONIAE Presumptive negative Presumptive negative ANTIGEN (BEAKER) for pneumococcal for pneumococcal (test code = 1615) pneumonia - see pneumonia - see comment commen Presumptive negative for pneumococcal pneumonia, suggesting no current or recent pneumococcal infection. Infection due to S. pneumoniae cannot be ruled out since the antigen present in the sample may be below the detection limit of the test. LEGIONELLA ANTIGEN, [id number] 11:41:00 Test Item Value Reference Range Interpretation Comments L. PNEUMOPHILA Negative - see Negative fo r L. SEROGP 1 UR AG comment pneumophila (HCRISTA) (test code serogrou p 1 antigen, = 1156) suggesting no r ecent or current infe ction with this serog roup. Legionellosis c annot be ruled out si nce other serogroup s and species may cau se disease. POCT-GLUCOSE [id number] 08:07:00 Test Item Value Reference Range Interpretation Comments POC-GLUCOSE METER 301 mg/dL 70-110 H Notified R Joe CONTEH/TESTED (CHRISTA) (test code = AT [facility] [address] [place] [address] 1538) [facility] [id number] POCT-GLUCOSE [id number] 20:36:00 Test Item Value Reference Range Interpretation Comments POC-GLUCOSE METER 215 mg/dL 70-110 H TESTED AT [place] [address] ([facility]) (test code = [facility] 1538) [id number] POCT-GLUCOSE [id number] 17:48:00 Test Item Value Reference Range Interpretation Comments POC-GLUCOSE METER 123 mg/dL 70-110 H TESTED AT [place] [address] ([facility]) (test code = [facility] 1538) [address] RAPID [id number] 14:15:00 Test Item Value Reference Range Interpretation Comments RAPID MYOGLOBIN (BEAKER) (test code 65 ng/mL <107 = 2237) B-TYPE NATRIURETIC FACTOR (BNP)2018-01-02 14:14:00 Test Item Value Reference Range Interpretation Comments B-TYPE NATRIURETIC PEPTIDE (BEAKER) 59 pg/mL 0-100 (test code = 700) RAPID TROPONIN [id number] 14:14:00 Test Item Value Reference Range Interpretation Comments RAPID TROPONIN I (BEAKER) (test code < ng/mL <0.05 = 1483) RAPID [id number] 14:14:00 Test Item Value Reference Range Interpretation Comments RAPID CKMB (BEAKER) (test code = 1.3 ng/mL 0.0-4.3 1482) RAPID INFLUENZA A&B [id number] 14:12:00 Test Item Value Reference Range Interpretation Comments RAPID INFLUENZA A AG (BEAKER) Negative Negative, Inconclusive (test code = 1622) RAPID INFLUENZA B AG (BEAKER) Negative Negative, Inconclusive (test code = 1623) COMPREHENSIVE METABOLIC [id number] 14:09:00 Test Item Value Reference Range Interpretation Comments TOTAL PROTEIN 7.1 gm/dL 6.0-8.5 (BEAKER) (test code = 770) ALBUMIN (BEAKER) 3.8 g/dL 3.5-5.0 (test code = 1145) ALKALINE PHOSPHATASE 57 U/L 30-115 (BEAKER) (test code = 346) BILIRUBIN TOTAL 0.3 mg/dL 0.1-1.2 (BEAKER) (test code = 377) SODIUM (BEAKER) 138 meq/L 135-148 (test code = 381) POTASSIUM (BEAKER) 4.0 meq/L 3.6-5.5 (test code = 379) CHLORIDE (BEAKER) 99 meq/L 98-106 (test code = 382) CO2 (BEAKER) (test 27 meq/L 24-32 code = 355) BLOOD UREA NITROGEN 17 mg/dL 10-26 (BEAKER) (test code = 354) CREATININE (BEAKER) 0.63 mg/dL 0.50-1.20 (test code = 358) GLUCOSE RANDOM 212 mg/dL 70-110 H (BEAKER) (test code = 652) CALCIUM (BEAKER) 8.6 mg/dL 8.5-10.5 (test code = 697) AST (SGOT) (BEAKER) 24 U/L 5-40 (test code = 353) ALT (SGPT) (BEAKER) 24 U/L 5-50 (test code = 347) EGFR (BEAKER) (test mL/min/1.73 INSUFFIC IENT code = 1092) sq m CLINICAL DATA T O CALCULATE ESTIM ATED GFR. LACTIC ACID, VENOUS, WHOLE [id number] 14:05:00 Test Item Value Reference Range Interpretation Comments LACTATE BLOOD VENOUS (2) (BEAKER) 1.5 mmol/L 0.5-2.2 (test code = 2872) Effective 07/25/2015: Units/Reference Range ChangeNew: 0.5-2.2 mmol/L Previous: 5-18 mg/dLRAD, CHEST, 2 [id number] 14:04:00Reason for exam:->SHORTNESS OF BREATHReason for exam:->COUGHReason for exam:->SHOULDER PAINShould this be performed at the bedside?->NoFINAL REPORT Chest, two views. MEDICAL HISTORY: Cough, shoulder pain. Comparison Study: None available. FINDINGS: The cardiac silhouette is unremarkable. A 2.7 cm opacity seen inthe peripheral portion of the left lower lung field, slightly smaller than on previous. There is also opacity in the right costophrenic angle region. Increasing fissural markings are seen in the remaining lung diaz. No pleural effusion or pneumothorax is seen. Degenerative changes are noted. IMPRESSION: Increased interstitial markings with some focal opacities including an opacity in the left peripheral lower lung which is less pronounced than on previous. Signed: Jose Daniel Royeport VerifiedDate/Time: 01/02/2018 14:04:47 Reading Location: [address] Ortho Consult Reading Room CBC W/PLT COUNT & AUTO [id number] 14:02:00 Test Item Value Reference Range Interpretation Comments WHITE BLOOD CELL COUNT (BEAKER) 10.8 K/ L 4.0-10.0 H (test code = 775) RED BLOOD CELL COUNT (BEAKER) 5.28 M/ L 4.20-5.80 (test code = 761) HEMOGLOBIN (BEAKER) (test code = 15.9 GM/DL 13.0-16.8 410) HEMATOCRIT (BEAKER) (test code = 48.0 % 40.0-50.0 411) MEAN CORPUSCULAR VOLUME (BEAKER) 90.8 fL 82.0-98.0 (test code = 753) MEAN CORPUSCULAR HEMOGLOBIN 30.0 pg 27.0-33.0 (BEAKER) (test code = 751) MEAN CORPUSCULAR HEMOGLOBIN CONC 33.1 GM/DL 32.0-36.0 (BEAKER) (test code = 752) RED CELL DISTRIBUTION WIDTH 12.6 % 10.3-14.2 (BEAKER) (test code = 412) PLATELET COUNT (BEAKER) (test 177 K/CU MM 150-430 code = 756) MEAN PLATELET VOLUME (BEAKER) 8.3 fL 6.5-10.5 (test code = 754) NEUTROPHILS RELATIVE PERCENT 78 % (BEAKER) (test code = 429) LYMPHOCYTES RELATIVE PERCENT 10 % (BEAKER) (test code = 430) MONOCYTES RELATIVE PERCENT 8 % (BEAKER) (test code = 431) EOSINOPHILS RELATIVE PERCENT 3 % (BEAKER) (test code = 432) BASOPHILS RELATIVE PERCENT 2 % (BEAKER) (test code = 437) NEUTROPHILS ABSOLUTE COUNT 8.49 K/ L 1.80-8.00 H (BEAKER) (test code = 670) LYMPHOCYTES ABSOLUTE COUNT 1.03 K/ L 1.48-4.50 L (BEAKER) (test code = 414) MONOCYTES ABSOLUTE COUNT (BEAKER) 0.87 K/ L 0.00-1.30 (test code = 415) EOSINOPHILS ABSOLUTE COUNT 0.28 K/ L 0.00-0.50 (BEAKER) (test code = 416) BASOPHILS ABSOLUTE COUNT (BEAKER) 0.16 K/ L 0.00-0.20 (test code = 417) AFB CULTURE + [id number] 15:07:00 Test Item Value Reference Range Interpretation Comments CULTURE (BEAKER) (test No acid-fast bacilli code = 1095) isolated in 42 days AFB SMEAR (BEAKER) No acid fast bacilli (test code = 994) seen AFB CULTURE + [id number] 15:07:00 Test Item Value Reference Range Interpretation Comments CULTURE (BEAKER) (test No acid-fast bacilli code = 1095) isolated in 42 days AFB SMEAR (BEAKER) No acid fast bacilli (test code = 994) seen FUNGUS CULTURE + [id number] 16:48:00 Test Item Value Reference Range Interpretation Comments CULTURE (BEAKER) (test No fungus isolated in code = 1095) 28 days FUNGUS SMEAR (BEAKER) No fungi seen (test code = 1406) FUNGUS CULTURE + [id number] 16:48:00 Test Item Value Reference Range Interpretation Comments CULTURE (BEAKER) (test No fungus isolated in code = 1095) 28 days FUNGUS SMEAR (BEAKER) No fungi seen (test code = 1406) POCT-GLUCOSE [id number] 07:42:00 Test Item Value Reference Range Interpretation Comments POC-GLUCOSE METER 110 mg/dL 70-110 TESTED AT [facility] 67[address] (BEAKER) (test code = [place] 1538) [address] BASIC METABOLIC [id number] 06:47:00 Test Item Value Reference Range Interpretation Comments SODIUM (BEAKER) 139 meq/L 136-145 (test code = 381) POTASSIUM (BEAKER) 3.7 meq/L 3.5-5.1 (test code = 379) CHLORIDE (BEAKER) 97 meq/L 98-107 L (test code = 382) CO2 (BEAKER) (test 35 meq/L 22-29 H code = 355) BLOOD UREA NITROGEN 17 mg/dL 7-21 (BEAKER) (test code = 354) CREATININE (BEAKER) 0.72 mg/dL 0.57-1.25 (test code = 358) GLUCOSE RANDOM 66 mg/dL 70-105 L (BEAKER) (test code = 652) CALCIUM (BEAKER) 9.1 mg/dL 8.4-10.2 (test code = 697) EGFR (BEAKER) (test mL/min/1.73 INSUFFIC IENT CLINICAL code = 1092) sq m DATA TO CALCULA TE ESTIMATED GFR. [id number] 06:32:00 Test Item Value Reference Range Interpretation Comments MAGNESIUM (BEAKER) (test code = 1.9 mg/dL 1.6-2.6 627) CBC W/PLT COUNT & AUTO [id number] 05:58:00 Test Item Value Reference Range Interpretation Comments WHITE BLOOD CELL COUNT (BEAKER) 12.1 K/ L 3.5-10.5 H (test code = 775) RED BLOOD CELL COUNT (BEAKER) 5.27 M/ L 4.63-6.08 (test code = 761) HEMOGLOBIN (BEAKER) (test code = 15.5 GM/DL 13.7-17.5 410) HEMATOCRIT (BEAKER) (test code = 47.0 % 40.1-51.0 411) MEAN CORPUSCULAR VOLUME (BEAKER) 89.2 fL 79.0-92.2 (test code = 753) MEAN CORPUSCULAR HEMOGLOBIN 29.4 pg 25.7-32.2 (BEAKER) (test code = 751) MEAN CORPUSCULAR HEMOGLOBIN CONC 33.0 GM/DL 32.3-36.5 (BEAKER) (test code = 752) RED CELL DISTRIBUTION WIDTH 12.8 % 11.6-14.4 (BEAKER) (test code = 412) PLATELET COUNT (BEAKER) (test 184 K/CU MM 150-450 code = 756) MEAN PLATELET VOLUME (BEAKER) 9.7 fL 9.4-12.4 (test code = 754) NUCLEATED RED BLOOD CELLS 0 /100 WBC 0-0 (BEAKER) (test code = 413) NEUTROPHILS RELATIVE PERCENT 67 % (BEAKER) (test code = 429) LYMPHOCYTES RELATIVE PERCENT 20 % (BEAKER) (test code = 430) MONOCYTES RELATIVE PERCENT 10 % (BEAKER) (test code = 431) EOSINOPHILS RELATIVE PERCENT 2 % (BEAKER) (test code = 432) BASOPHILS RELATIVE PERCENT 0 % (BEAKER) (test code = 437) NEUTROPHILS ABSOLUTE COUNT 8.05 K/ L 1.78-5.38 H (BEAKER) (test code = 670) LYMPHOCYTES ABSOLUTE COUNT 2.39 K/ L 1.32-3.57 (BEAKER) (test code = 414) MONOCYTES ABSOLUTE COUNT (BEAKER) 1.22 K/ L 0.30-0.82 H (test code = 415) EOSINOPHILS ABSOLUTE COUNT 0.26 K/ L 0.04-0.54 (BEAKER) (test code = 416) BASOPHILS ABSOLUTE COUNT (BEAKER) 0.03 K/ L 0.01-0.08 (test code = 417) IMMATURE GRANULOCYTES-RELATIVE 1 % 0-1 PERCENT (BEAKER) (test code = 2801) POCT-GLUCOSE [id number] 21:27:00 Test Item Value Reference Range Interpretation Comments POC-GLUCOSE METER 367 mg/dL 70-110 H Notified R Joe CONTEH/TESTED ([facility]) (test code = AT [facility] [address]) [facility] [id number] POCT-GLUCOSE [id number] 17:46:00 Test Item Value Reference Range Interpretation Comments POC-GLUCOSE METER 254 mg/dL 70-110 H TESTED AT [place] [address] ([facility]) (test code = MELO [place] [facility] 1538) [address] POCT-GLUCOSE [id number] 12:10:00 Test Item Value Reference Range Interpretation Comments POC-GLUCOSE METER 136 mg/dL 70-110 H TESTED AT [place] [address] (BEAKER) (test code = M[place] [facility] 1538) [address] BLOOD [id number] 11:00:00 Test Item Value Reference Range Interpretation Comments CULTURE (BEAKER) (test No growth in 5 days code = 1095) BLOOD [id number] 11:00:00 Test Item Value Reference Range Interpretation Comments CULTURE (BEAKER) (test No growth in 5 days code = 1095) BRONCHIAL CULTURE + GRAM [id number] 09:52:00 Test Item Value Reference Range Interpretation Comments CULTURE A 4+ Same organis m has (BEAKER) (test been isolated from code = 1095) cultures(s) of the same body site withi n 3 days. Repeat identification and susceptibility testing performed only after consultation wi th the clinical microb iology laboratory.Refe r to previous cultur e ofPseudomonas aeruginosamucoi d colony type GRAM STAIN 3+ WBCs RESULT (BEAKER) (test code = 1123) GRAM STAIN 2+ gram negative RESULT (BEAKER) rods (test code = 289136) <1+ Normal respiratory neetu presentSPUTUM CULTURE + GRAM [id number] 09:40:00 Test Item Value Reference Range Interpretation Comments CULTURE (BEAKER) PSEUDOMONAS A 4+ Pseudomo stephanie (test code = 1095) AERUGINOSA aeruginos a (MUCOID-PHENOTYPE) (Mucoid-p henotype ) Amikacin (test code Susceptible S = 1) 0-16 , Resistant <0 or >16 Aztreonam (test code Susceptible 0-8 R = 32) , Resistant <0 or >8 Cefepime (test code Susceptible 0-8 R = 51) , Resistant <0 or >8 Ceftazidime (test Susceptible 0-8 R code = 27) , Resistant <0 or >8 Ciprofloxacin (test Susceptible 0-1 R code = 7) , Resistant <0 or >1 Doripenem (test code Susceptible 0-2 R = 100) , Resistant <0 or >2 Gentamicin (test Susceptible 0-4 S code = 18) , Resistant <0 or >4 Imipenem (test code Susceptible 0-2 S = 19) , Resistant <0 or >2 Levofloxacin (test Susceptible 0-2 R code = 22) , Resistant <0 or >2 Meropenem (test code Susceptible 0-2 R = 34) , Resistant <0 or >2 Piperacillin (test Susceptible R code = 24) 0-16 , Resistant <0 or >16 Piperacillin + Susceptible S Tazobactam (test 0-16 , code = 29) Resistant <0 or >16 Tobramycin (test Susceptible 0-4 S code = 25) , Resistant <0 or >4 CULTURE (BEAKER) METHICILLIN A 2+ Methicil erich (test code = 1095) RESISTANT resistant STAPHYLOCOCCUS Staphylococcu s AUREUS aureus Clindamycin (test S code = 10) Erythromycin (test R code = 4) Linezolid (test code S = 40) Nitrofurantoin (test S code = 23) Oxacillin (test code R = 14) Rifampin (test code S = 43) Tetracycline (test S code = 2) Trimethoprim + S Sulfamethoxazole (test code = 47) Vancomycin (test S code = 13) GRAM STAIN RESULT 4+ White blood (BEAKER) (test code cells seen = 1123) GRAM STAIN RESULT 0-5 epithelial (BEAKER) (test code cells = 104077) GRAM STAIN RESULT 4+ gram negative (BEAKER) (test code rods = 832247) GRAM STAIN RESULT <1+ gram positive (BEAKER) (test code rods = 100888) GRAM STAIN RESULT 4+ gram positive (BEAKER) (test code cocci in chains, = 614457) pairs and clusters 4+ Normal respiratory neetu presentPOCT-GLUCOSE [id number] 08:02:00 Test Item Value Reference Range Interpretation Comments POC-GLUCOSE METER 198 mg/dL 70-[address] [facility] [address] (BEAKER) (test code = [place] 1538) [address] BASIC METABOLIC [id number] 07:06:00 Test Item Value Reference Range Interpretation Comments SODIUM (BEAKER) 138 meq/L 136-145 (test code = 381) POTASSIUM (BEAKER) 3.7 meq/L 3.5-5.1 (test code = 379) CHLORIDE (BEAKER) 100 meq/L 98-107 (test code = 382) CO2 (BEAKER) (test 31 meq/L 22-29 H code = 355) BLOOD UREA NITROGEN 16 mg/dL 7-21 (BEAKER) (test code = 354) CREATININE (BEAKER) 0.71 mg/dL 0.57-1.25 (test code = 358) GLUCOSE RANDOM 127 mg/dL 70-105 H (BEAKER) (test code = 652) CALCIUM (BEAKER) 9.1 mg/dL 8.4-10.2 (test code = 697) EGFR (BEAKER) (test mL/min/1.73 INSUFFIC IENT CLINICAL code = 1092) sq m DATA TO CALCULA TE ESTIMATED GFR. [id number] 06:33:00 Test Item Value Reference Range Interpretation Comments MAGNESIUM (BEAKER) (test code = 2.0 mg/dL 1.6-2.6 627) CBC W/PLT COUNT & AUTO [id number] 05:54:00 Test Item Value Reference Range Interpretation Comments WHITE BLOOD CELL COUNT (BEAKER) 14.9 K/ L 3.5-10.5 H (test code = 775) RED BLOOD CELL COUNT (BEAKER) 5.15 M/ L 4.63-6.08 (test code = 761) HEMOGLOBIN (BEAKER) (test code = 15.5 GM/DL 13.7-17.5 410) HEMATOCRIT (BEAKER) (test code = 46.2 % 40.1-51.0 411) MEAN CORPUSCULAR VOLUME (BEAKER) 89.7 fL 79.0-92.2 (test code = 753) MEAN CORPUSCULAR HEMOGLOBIN 30.1 pg 25.7-32.2 (BEAKER) (test code = 751) MEAN CORPUSCULAR HEMOGLOBIN CONC 33.5 GM/DL 32.3-36.5 (BEAKER) (test code = 752) RED CELL DISTRIBUTION WIDTH 12.7 % 11.6-14.4 (BEAKER) (test code = 412) PLATELET COUNT (BEAKER) (test 186 K/CU MM 150-450 code = 756) MEAN PLATELET VOLUME (BEAKER) 9.8 fL 9.4-12.4 (test code = 754) NUCLEATED RED BLOOD CELLS 0 /100 WBC 0-0 (BEAKER) (test code = 413) NEUTROPHILS RELATIVE PERCENT 79 % (BEAKER) (test code = 429) LYMPHOCYTES RELATIVE PERCENT 12 % (BEAKER) (test code = 430) MONOCYTES RELATIVE PERCENT 8 % (BEAKER) (test code = 431) EOSINOPHILS RELATIVE PERCENT 0 % (BEAKER) (test code = 432) BASOPHILS RELATIVE PERCENT 0 % (BEAKER) (test code = 437) NEUTROPHILS ABSOLUTE COUNT 11.77 K/ L 1.78-5.38 H (BEAKER) (test code = 670) LYMPHOCYTES ABSOLUTE COUNT 1.72 K/ L 1.32-3.57 (BEAKER) (test code = 414) MONOCYTES ABSOLUTE COUNT (BEAKER) 1.19 K/ L 0.30-0.82 H (test code = 415) EOSINOPHILS ABSOLUTE COUNT 0.04 K/ L 0.04-0.54 (BEAKER) (test code = 416) BASOPHILS ABSOLUTE COUNT (BEAKER) 0.04 K/ L 0.01-0.08 (test code = 417) IMMATURE GRANULOCYTES-RELATIVE 1 % 0-1 PERCENT (BEAKER) (test code = 2801) POCT-GLUCOSE [id number] 21:54:00 Test Item Value Reference Range Interpretation Comments POC-GLUCOSE METER 199 mg/dL 70-[address] [facility] 67[address] ([facility]) (test code = [place] [facility] 1538) [address] BRONCHIAL CULTURE + GRAM [id number] 17:45:00 Test Item Value Reference Range Interpretation Comments CULTURE (BEAKER) A <1+ Same or ganism has (test code = been isolated f rom 1095) cultures(s) of the same body site within 3 days. Repeat identification and susceptibility testing performed only after consultation wi th the clinical microb iology laboratory.Refe r to previous cultur e ofMethicillin resistant Staphylococcus aureus GRAM STAIN 2+ WBCs RESULT (BEAKER) (test code = 1123) GRAM STAIN 3+ gram negative RESULT (BEAKER) rods (test code = 356041) GRAM STAIN <1+ gram RESULT (BEAKER) positive cocci (test code = in pairs and 483351) clusters 1+ Normal respiratory neetu presentPOCT-GLUCOSE [id number] 16:39:00 Test Item Value Reference Range Interpretation Comments POC-GLUCOSE METER 296 mg/dL 70-[address] [facility] 67[address] ([facility]) (test code = [place] [facility] 1538) [address] POCT-GLUCOSE [id number] 11:55:00 Test Item Value Reference Range Interpretation Comments POC-GLUCOSE METER 290 mg/dL 70-110 H [facility] ([facility]) (test code = [place] 1538) [address] POCT-GLUCOSE [id number] 07:38:00 Test Item Value Reference Range Interpretation Comments POC-GLUCOSE METER 258 mg/dL 70-[address] [facility] 67[address] ([facility]) (test code = [place] 1538) [address] BASIC METABOLIC [id number] 05:44:00 Test Item Value Reference Range Interpretation Comments SODIUM (BEAKER) 136 meq/L 136-145 (test code = 381) POTASSIUM (BEAKER) 4.1 meq/L 3.5-5.1 (test code = 379) CHLORIDE (BEAKER) 96 meq/L 98-107 L (test code = 382) CO2 (BEAKER) (test 32 meq/L 22-29 H code = 355) BLOOD UREA NITROGEN 18 mg/dL 7-21 (BEAKER) (test code = 354) CREATININE (BEAKER) 0.81 mg/dL 0.57-1.25 (test code = 358) GLUCOSE RANDOM 268 mg/dL 70-105 H (BEAKER) (test code = 652) CALCIUM (BEAKER) 9.6 mg/dL 8.4-10.2 (test code = 697) EGFR (BEAKER) (test mL/min/1.73 INSUFFIC IENT CLINICAL code = 1092) sq m DATA TO CALCULA TE ESTIMATED GFR. [id number] 05:38:00 Test Item Value Reference Range Interpretation Comments MAGNESIUM (BEAKER) (test code = 2.1 mg/dL 1.6-2.6 627) CBC W/PLT COUNT & AUTO [id number] 05:35:00 Test Item Value Reference Range Interpretation Comments WHITE BLOOD CELL COUNT (BEAKER) 13.3 K/ L 3.5-10.5 H (test code = 775) RED BLOOD CELL COUNT (BEAKER) 5.14 M/ L 4.63-6.08 (test code = 761) HEMOGLOBIN (BEAKER) (test code = 15.3 GM/DL 13.7-17.5 410) HEMATOCRIT (BEAKER) (test code = 45.6 % 40.1-51.0 411) MEAN CORPUSCULAR VOLUME (BEAKER) 88.7 fL 79.0-92.2 (test code = 753) MEAN CORPUSCULAR HEMOGLOBIN 29.8 pg 25.7-32.2 (BEAKER) (test code = 751) MEAN CORPUSCULAR HEMOGLOBIN CONC 33.6 GM/DL 32.3-36.5 (BEAKER) (test code = 752) RED CELL DISTRIBUTION WIDTH 12.6 % 11.6-14.4 (BEAKER) (test code = 412) PLATELET COUNT (BEAKER) (test 199 K/CU MM 150-450 code = 756) MEAN PLATELET VOLUME (BEAKER) 9.8 fL 9.4-12.4 (test code = 754) NUCLEATED RED BLOOD CELLS 0 /100 WBC 0-0 (BEAKER) (test code = 413) NEUTROPHILS RELATIVE PERCENT 93 % (BEAKER) (test code = 429) LYMPHOCYTES RELATIVE PERCENT 3 % (BEAKER) (test code = 430) MONOCYTES RELATIVE PERCENT 2 % (BEAKER) (test code = 431) EOSINOPHILS RELATIVE PERCENT 0 % (BEAKER) (test code = 432) BASOPHILS RELATIVE PERCENT 0 % (BEAKER) (test code = 437) NEUTROPHILS ABSOLUTE COUNT 12.30 K/ L 1.78-5.38 H (BEAKER) (test code = 670) LYMPHOCYTES ABSOLUTE COUNT 0.42 K/ L 1.32-3.57 L (BEAKER) (test code = 414) MONOCYTES ABSOLUTE COUNT (BEAKER) 0.30 K/ L 0.30-0.82 (test code = 415) EOSINOPHILS ABSOLUTE COUNT 0.00 K/ L 0.04-0.54 L (BEAKER) (test code = 416) BASOPHILS ABSOLUTE COUNT (BEAKER) 0.02 K/ L 0.01-0.08 (test code = 417) IMMATURE GRANULOCYTES-RELATIVE 2 % 0-1 H PERCENT (BEAKER) (test code = 2801) ANTI-NUCLEAR ANTIBODY (IRVIN)2017-10-22 04:07:00 Test Item Value Reference Range Interpretation Comments ANTI-NUCLEAR ANTIBODY (IRVIN) (BEAKER) Negative Negative (test code = 418) Test performed by IFA method.Test performed by IFA method.POCT-GLUCOSE METER 2017-10-21 21:22:00 Test Item Value Reference Range Interpretation Comments POC-GLUCOSE METER 330 mg/dL 70-[address] [facility] 67[address] ([facility]) (test code = [place] 1538) [address] POCT-GLUCOSE [id number] 17:44:00 Test Item Value Reference Range Interpretation Comments POC-GLUCOSE METER 206 mg/dL 70-[address] [facility] 67[address] (BEAKER) (test code = [place] [facility] 1538) [address] SPIN/CONCENTRATION [id number] 16:39:00 Test Item Value Reference Range Interpretation Comments CONCENTRATION CHARGED (BEAKER) (test Done code = 2657) SPIN/CONCENTRATION [id number] 16:39:00 Test Item Value Reference Range Interpretation Comments CONCENTRATION CHARGED (BEAKER) (test Done code = 2657) POCT-GLUCOSE [id number] 11:57:00 Test Item Value Reference Range Interpretation Comments POC-GLUCOSE METER 227 mg/dL 70-[address] [facility] 67[address] ([facility]) (test code = [place] [facility] 1538) [address] RHEUMATOID FACTOR AB, REFLEX TO [id number] 08:01:00 Test Item Value Reference Range Interpretation Comments RHEUMATOID FACTOR (BEAKER) (test Negative code = 573) POCT-GLUCOSE [id number] 07:53:00 Test Item Value Reference Range Interpretation Comments POC-GLUCOSE METER 216 mg/dL 70-[address] [facility] 67[address] (BEAKER) (test code = [place] [facility] 1538) [address] BASIC METABOLIC [id number] 06:57:00 Test Item Value Reference Range Interpretation Comments SODIUM (BEAKER) 135 meq/L 136-145 L (test code = 381) POTASSIUM (BEAKER) 4.2 meq/L 3.5-5.1 (test code = 379) CHLORIDE (BEAKER) 96 meq/L 98-107 L (test code = 382) CO2 (BEAKER) (test 32 meq/L 22-29 H code = 355) BLOOD UREA NITROGEN 18 mg/dL 7-21 (BEAKER) (test code = 354) CREATININE (BEAKER) 0.79 mg/dL 0.57-1.25 (test code = 358) GLUCOSE RANDOM 239 mg/dL 70-105 H (BEAKER) (test code = 652) CALCIUM (BEAKER) 9.6 mg/dL 8.4-10.2 (test code = 697) EGFR (BEAKER) (test mL/min/1.73 INSUFFIC IENT CLINICAL code = 1092) sq m DATA TO CALCULA TE ESTIMATED GFR. CBC W/PLT COUNT & AUTO [id number] 06:51:00 Test Item Value Reference Range Interpretation Comments WHITE BLOOD CELL COUNT (BEAKER) 13.6 K/ L 3.5-10.5 H (test code = 775) RED BLOOD CELL COUNT (BEAKER) 5.12 M/ L 4.63-6.08 (test code = 761) HEMOGLOBIN (BEAKER) (test code = 14.9 GM/DL 13.7-17.5 410) HEMATOCRIT (BEAKER) (test code = 45.7 % 40.1-51.0 411) MEAN CORPUSCULAR VOLUME (BEAKER) 89.3 fL 79.0-92.2 (test code = 753) MEAN CORPUSCULAR HEMOGLOBIN 29.1 pg 25.7-32.2 (BEAKER) (test code = 751) MEAN CORPUSCULAR HEMOGLOBIN CONC 32.6 GM/DL 32.3-36.5 (BEAKER) (test code = 752) RED CELL DISTRIBUTION WIDTH 12.8 % 11.6-14.4 (BEAKER) (test code = 412) PLATELET COUNT (BEAKER) (test 213 K/CU MM 150-450 code = 756) MEAN PLATELET VOLUME (BEAKER) 10.3 fL 9.4-12.4 (test code = 754) NUCLEATED RED BLOOD CELLS 0 /100 WBC 0-0 (BEAKER) (test code = 413) NEUTROPHILS RELATIVE PERCENT 92 % (BEAKER) (test code = 429) LYMPHOCYTES RELATIVE PERCENT 5 % (BEAKER) (test code = 430) MONOCYTES RELATIVE PERCENT 3 % (BEAKER) (test code = 431) EOSINOPHILS RELATIVE PERCENT 0 % (BEAKER) (test code = 432) BASOPHILS RELATIVE PERCENT 0 % (BEAKER) (test code = 437) NEUTROPHILS ABSOLUTE COUNT 12.49 K/ L 1.78-5.38 H (BEAKER) (test code = 670) LYMPHOCYTES ABSOLUTE COUNT 0.63 K/ L 1.32-3.57 L (BEAKER) (test code = 414) MONOCYTES ABSOLUTE COUNT (BEAKER) 0.35 K/ L 0.30-0.82 (test code = 415) EOSINOPHILS ABSOLUTE COUNT 0.00 K/ L 0.04-0.54 L (BEAKER) (test code = 416) BASOPHILS ABSOLUTE COUNT (BEAKER) 0.02 K/ L 0.01-0.08 (test code = 417) IMMATURE GRANULOCYTES-RELATIVE 1 % 0-1 PERCENT (AKER) (test code = 2801) [id number] 06:50:00 Test Item Value Reference Range Interpretation Comments MAGNESIUM (BEPAUL) (test code = 2.2 mg/dL 1.6-2.6 627) POCT-GLUCOSE [id number] 21:07:00 Test Item Value Reference Range Interpretation Comments POC-GLUCOSE METER 274 mg/dL 70-110 H TESTED AT [place] [address] ([facility]) (test code = MELO Doherty [facility] 1538) [id number] POCT-GLUCOSE [id number] 17:34:00 Test Item Value Reference Range Interpretation Comments POC-GLUCOSE METER 284 mg/dL 70-110 H TESTED AT [place] [address] ([facility]) ([facility] code = [facility] 1538) [address] [id number] 15:49:00Medical Cytology Report Case: [id number] Authorizing Provider: Sulaiman Ayala MD Collected: 10/19/2017 0858 Ordering Location: [address] Received: 10/20/2017 1047 Service Pathologist: James Adame MD Specimen: Lingula LUNG, LINGULA BAL (CYTOSPINS): - UNSATISFACTORY: INSUFFICIENT PULMONARY ELEMENTS PREDOMINANTLY INFLAMMATION Signing Pathologist Direct Phone Line: [phone] signed by James Adame MD on 10/20/2017 at 3:49 [id number], LINGULA BAL22 mls in cytorich red; 4 cytospinsCollected: [id number]: [id number] [facility], Department of Pathology, [address] [place] [id number], [facility], [address] [place] [id number], MZBM-GLUCOSE [id number] 12:25:00 Test Item Value Reference Range Interpretation Comments POC-GLUCOSE METER 246 mg/dL 70-110 H TESTED AT [place] [address] ([facility]) (test code = MELO Doherty [facility] 1538) [address] CYTOLOGY [id number] 12:00:00 Test Item Value Reference Range Interpretation Comments CYTOLOGY RESULT POINTER See Separate Report (CHRISTA) (test code = 2629) BASIC METABOLIC [id number] 07:46:00 Test Item Value Reference Range Interpretation Comments SODIUM (BEAKER) 133 meq/L 136-145 L (test code = 381) POTASSIUM (BEAKER) 4.9 meq/L 3.5-5.1 (test code = 379) CHLORIDE (BEAKER) 95 meq/L 98-107 L (test code = 382) CO2 (BEAKER) (test 30 meq/L 22-29 H code = 355) BLOOD UREA NITROGEN 18 mg/dL 7-21 (BEAKER) (test code = 354) CREATININE (BEAKER) 0.84 mg/dL 0.57-1.25 (test code = 358) GLUCOSE RANDOM 265 mg/dL 70-105 H (BEAKER) (test code = 652) CALCIUM (BEAKER) 9.6 mg/dL 8.4-10.2 (test code = 697) EGFR (BEAKER) (test mL/min/1.73 INSUFFIC IENT CLINICAL code = 1092) sq m DATA TO CALCULA TE ESTIMATED GFR. POCT-GLUCOSE [id number] 07:38:00 Test Item Value Reference Range Interpretation Comments POC-GLUCOSE METER 318 mg/dL 70-[address] [facility] [address] ([facility]) (test code = MELO Doherty [facility] 1538) [address] [id number] 07:09:00 Test Item Value Reference Range Interpretation Comments MAGNESIUM (BEAKER) (test code = 2.3 mg/dL 1.6-2.6 627) CBC W/PLT COUNT & AUTO [id number] 06:53:00 Test Item Value Reference Range Interpretation Comments WHITE BLOOD CELL COUNT (BEAKER) 13.2 K/ L 3.5-10.5 H (test code = 775) RED BLOOD CELL COUNT (BEAKER) 5.04 M/ L 4.63-6.08 (test code = 761) HEMOGLOBIN (BEAKER) (test code = 14.9 GM/DL 13.7-17.5 410) HEMATOCRIT (BEAKER) (test code = 44.7 % 40.1-51.0 411) MEAN CORPUSCULAR VOLUME (BEAKER) 88.7 fL 79.0-92.2 (test code = 753) MEAN CORPUSCULAR HEMOGLOBIN 29.6 pg 25.7-32.2 (BEAKER) (test code = 751) MEAN CORPUSCULAR HEMOGLOBIN CONC 33.3 GM/DL 32.3-36.5 (BEAKER) (test code = 752) RED CELL DISTRIBUTION WIDTH 12.8 % 11.6-14.4 (BEAKER) (test code = 412) PLATELET COUNT (BEAKER) (test 189 K/CU MM 150-450 code = 756) MEAN PLATELET VOLUME (BEAKER) 10.2 fL 9.4-12.4 (test code = 754) NUCLEATED RED BLOOD CELLS 0 /100 WBC 0-0 (BEAKER) (test code = 413) NEUTROPHILS RELATIVE PERCENT 95 % (BEAKER) (test code = 429) LYMPHOCYTES RELATIVE PERCENT 3 % (BEAKER) (test code = 430) MONOCYTES RELATIVE PERCENT 1 % (BEAKER) (test code = 431) EOSINOPHILS RELATIVE PERCENT 0 % (BEAKER) (test code = 432) BASOPHILS RELATIVE PERCENT 0 % (BEAKER) (test code = 437) NEUTROPHILS ABSOLUTE COUNT 12.49 K/ L 1.78-5.38 H (BEAKER) (test code = 670) LYMPHOCYTES ABSOLUTE COUNT 0.40 K/ L 1.32-3.57 L (BEAKER) (test code = 414) MONOCYTES ABSOLUTE COUNT (BEAKER) 0.17 K/ L 0.30-0.82 L (test code = 415) EOSINOPHILS ABSOLUTE COUNT 0.00 K/ L 0.04-0.54 L (BEAKER) (test code = 416) BASOPHILS ABSOLUTE COUNT (BEAKER) 0.03 K/ L 0.01-0.08 (test code = 417) IMMATURE GRANULOCYTES-RELATIVE 1 % 0-1 PERCENT (BEAKER) (test code = 2801) POCT-GLUCOSE [id number] 21:21:00 Test Item Value Reference Range Interpretation Comments POC-GLUCOSE METER 322 mg/dL 70-110 H Notified R Joe CONTEH/TESTED (AKER) (test code = AT [facility] [address] [address]) [facility] 7[address] 0 POCT-GLUCOSE [id number] 17:40:00 Test Item Value Reference Range Interpretation Comments POC-GLUCOSE METER 304 mg/dL 70-[address] [facility] [address] (BEAKER) (test code = MELO Doherty [place] 1538) [address] POCT-GLUCOSE [id number] 11:55:00 Test Item Value Reference Range Interpretation Comments POC-GLUCOSE METER 126 mg/dL 70-[address] [facility] [address] (BEAKER) (test code = MELO Doherty [place] 1538) [address] RESPIRATORY PANEL [id number] 10:56:00 Test Item Value Reference Range Interpretation Comments HUMAN METAPNEUMOVIRUS Not detected Not detected, (BEAKER) (test code = Inconclusive 2683) RHINOVIRUS (BEAKER) (test Not detected Not detected, code = 2684) Inconclusive INFLUENZA A (BEAKER) (test Not detected Not detected, code = 2685) Inconclusive INFLUENZA A SUBTYPE H1 Not detected Not detected, (BEAKER) (test code = Inconclusive 2686) INFLUENZA A SUBTYPE H3 Not detected Not detected, (BEAKER) (test code = Inconclusive 2687) INFLUENZA A SUBTYPE Not detected Not detected, H1-2009 (BEAKER) (test Inconclusive code = 3198) INFLUENZA B (BEAKER) (test Not detected Not detected, code = 2688) Inconclusive RESPIRATORY SYNCYTIAL Not detected Not detected, VIRUS (BEAKER) (test code Inconclusive = 3199) PARAINFLUENZA VIRUS 1 Not detected Not detected, (BEAKER) (test code = Inconclusive 2691) PARAINFLUENZA VIRUS 2 Not detected Not detected, (BEAKER) (test code = Inconclusive 2692) PARAINFLUENZA VIRUS 3 Not detected Not detected, (BEAKER) (test code = Inconclusive 2693) PARAINFLUENZA VIRUS 4 Not detected Not detected, (BEAKER) (test code = Inconclusive 3200) ADENOVIRUS (BEAKER) (test Not detected Not detected, code = 2694) Inconclusive CORONAVIRUS 229E (BEAKER) Not detected Not detected, (test code = 3201) Inconclusive CORONAVIRUS HKU1 (BEAKER) Not detected Not detected, (test code = 3202) Inconclusive CORONAVIRUS NL63 (BEAKER) Not detected Not detected, (test code = 3203) Inconclusive CORONAVIRUS OC43 (BEAKER) Not detected Not detected, (test code = 3204) Inconclusive BORDETELLA PERTUSSIS Not detected Not detected, (BEAKER) (test code = Inconclusive 3205) CHLAMYDOPHILA PNEUMONIAE Not detected Not detected, (BEAKER) (test code = Inconclusive 3206) MYCOPLASMA PNEUMONIAE Not detected Not detected, (BEAKER) (test code = Inconclusive 3207) BASIC METABOLIC [id number] 09:24:00 Test Item Value Reference Range Interpretation Comments SODIUM (BEAKER) 138 meq/L 136-145 (test code = 381) POTASSIUM (BEAKER) 4.0 meq/L 3.5-5.1 (test code = 379) CHLORIDE (BEAKER) 101 meq/L 98-107 (test code = 382) CO2 (BEAKER) (test 28 meq/L 22-29 code = 355) BLOOD UREA NITROGEN 19 mg/dL 7-21 (BEAKER) (test code = 354) CREATININE (BEAKER) 0.78 mg/dL 0.57-1.25 (test code = 358) GLUCOSE RANDOM 128 mg/dL 70-105 H (BEAKER) (test code = 652) CALCIUM (BEAKER) 8.8 mg/dL 8.4-10.2 (test code = 697) EGFR (BEAKER) (test mL/min/1.73 INSUFFIC IENT CLINICAL code = 1092) sq m DATA TO CALCULA TE ESTIMATED GFR. POCT-GLUCOSE [id number] 09:11:00 Test Item Value Reference Range Interpretation Comments POC-GLUCOSE METER 130 mg/dL 70-[address] [facility] [address] ([facility]) (test code = [place] 1538) [id number] 09:01:00 Test Item Value Reference Range Interpretation Comments MAGNESIUM (BEAKER) (test code = 2.1 mg/dL 1.6-2.6 627) POCT-GLUCOSE [id number] 08:13:00 Test Item Value Reference Range Interpretation Comments POC-GLUCOSE METER 138 mg/dL 70-[address] [facility] [address] ([facility]) (test code = [place] 1538) [address] CBC W/PLT COUNT & AUTO [id number] 08:01:00 Test Item Value Reference Range Interpretation Comments WHITE BLOOD CELL COUNT (BEAKER) 10.9 K/ L 3.5-10.5 H (test code = 775) RED BLOOD CELL COUNT (BEAKER) 5.04 M/ L 4.63-6.08 (test code = 761) HEMOGLOBIN (BEAKER) (test code = 14.6 GM/DL 13.7-17.5 410) HEMATOCRIT (BEAKER) (test code = 45.6 % 40.1-51.0 411) MEAN CORPUSCULAR VOLUME (BEAKER) 90.5 fL 79.0-92.2 (test code = 753) MEAN CORPUSCULAR HEMOGLOBIN 29.0 pg 25.7-32.2 (BEAKER) (test code = 751) MEAN CORPUSCULAR HEMOGLOBIN CONC 32.0 GM/DL 32.3-36.5 L (BEAKER) (test code = 752) RED CELL DISTRIBUTION WIDTH 13.0 % 11.6-14.4 (BEAKER) (test code = 412) PLATELET COUNT (BEAKER) (test 178 K/CU MM 150-450 code = 756) MEAN PLATELET VOLUME (BEAKER) 10.0 fL 9.4-12.4 (test code = 754) NUCLEATED RED BLOOD CELLS 0 /100 WBC 0-0 (BEAKER) (test code = 413) NEUTROPHILS RELATIVE PERCENT 73 % (BEAKER) (test code = 429) LYMPHOCYTES RELATIVE PERCENT 18 % (BEAKER) (test code = 430) MONOCYTES RELATIVE PERCENT 7 % (BEAKER) (test code = 431) EOSINOPHILS RELATIVE PERCENT 1 % (BEAKER) (test code = 432) BASOPHILS RELATIVE PERCENT 1 % (BEAKER) (test code = 437) NEUTROPHILS ABSOLUTE COUNT 7.91 K/ L 1.78-5.38 H (BEAKER) (test code = 670) LYMPHOCYTES ABSOLUTE COUNT 1.96 K/ L 1.32-3.57 (BEAKER) (test code = 414) MONOCYTES ABSOLUTE COUNT (BEAKER) 0.76 K/ L 0.30-0.82 (test code = 415) EOSINOPHILS ABSOLUTE COUNT 0.11 K/ L 0.04-0.54 (BEAKER) (test code = 416) BASOPHILS ABSOLUTE COUNT (BEAKER) 0.07 K/ L 0.01-0.08 (test code = 417) IMMATURE GRANULOCYTES-RELATIVE 1 % 0-1 PERCENT (BEAKER) (test code = 2801) POCT-GLUCOSE [id number] 22:11:00 Test Item Value Reference Range Interpretation Comments POC-GLUCOSE METER 264 mg/dL 70-110 H TESTED AT [place] [address] ([facility]) (test code = MELO Doherty [facility] 1538) [address] POCT-GLUCOSE [id number] 18:12:00 Test Item Value Reference Range Interpretation Comments POC-GLUCOSE METER 182 mg/dL 70-110 H TESTED AT [place] [address] ([facility]) (test code = [facility] [place] [facility] 1538) [address] POCT-GLUCOSE [id number] 18:01:00 Test Item Value Reference Range Interpretation Comments POC-GLUCOSE METER 269 mg/dL 70-110 H TESTED AT [place] [address] ([facility]) (test code = [facility] [place] [facility] 1538) [address] HEMOGLOBIN [id number] 10:39:00 Test Item Value Reference Range Interpretation Comments HEMOGLOBIN A1C ([facility]) (test code = 6.9 % 4.3-6.1 H 368) POCT-GLUCOSE [id number] 07:39:00 Test Item Value Reference Range Interpretation Comments POC-GLUCOSE METER 237 mg/dL 70-110 H TESTED AT [place] [address] ([facility]) (test code = [facility] [place] [facility] 1538) [address] CBC W/PLT COUNT & AUTO [id number] 06:48:00 Test Item Value Reference Range Interpretation Comments WHITE BLOOD CELL COUNT ([facility]) 10.2 K/ L 3.5-10.5 (test code = 775) RED BLOOD CELL COUNT ([facility]) 5.27 M/ L 4.63-6.08 (test code = 761) HEMOGLOBIN (BEAKER) (test code = 15.2 GM/DL 13.7-17.5 410) HEMATOCRIT ([facility]) (test code = 46.2 % 40.1-51.0 411) MEAN CORPUSCULAR VOLUME ([facility]) 87.7 fL 79.0-92.2 (test code = 753) MEAN CORPUSCULAR HEMOGLOBIN 28.8 pg 25.7-32.2 (AKER) (test code = 751) MEAN CORPUSCULAR HEMOGLOBIN CONC 32.9 GM/DL 32.3-36.5 (AKER) (test code = 752) RED CELL DISTRIBUTION WIDTH 12.5 % 11.6-14.4 (AKER) (test code = 412) PLATELET COUNT (BEAKER) (test 234 K/CU MM 150-450 code = 756) MEAN PLATELET VOLUME (BEAKER) 10.0 fL 9.4-12.4 (test code = 754) NUCLEATED RED BLOOD CELLS 0 /100 WBC 0-0 (BEAKER) (test code = 413) NEUTROPHILS RELATIVE PERCENT 91 % (BEAKER) (test code = 429) LYMPHOCYTES RELATIVE PERCENT 5 % (BEAKER) (test code = 430) MONOCYTES RELATIVE PERCENT 3 % (BEAKER) (test code = 431) EOSINOPHILS RELATIVE PERCENT 0 % (BEAKER) (test code = 432) BASOPHILS RELATIVE PERCENT 0 % (BEAKER) (test code = 437) NEUTROPHILS ABSOLUTE COUNT 9.29 K/ L 1.78-5.38 H (BEAKER) (test code = 670) LYMPHOCYTES ABSOLUTE COUNT 0.53 K/ L 1.32-3.57 L (BEAKER) (test code = 414) MONOCYTES ABSOLUTE COUNT (BEAKER) 0.29 K/ L 0.30-0.82 L (test code = 415) EOSINOPHILS ABSOLUTE COUNT 0.00 K/ L 0.04-0.54 L (BEAKER) (test code = 416) BASOPHILS ABSOLUTE COUNT (BEAKER) 0.01 K/ L 0.01-0.08 (test code = 417) IMMATURE GRANULOCYTES-RELATIVE 0 % 0-1 PERCENT (BEAKER) (test code = 2801) BASIC METABOLIC [id number] 06:45:00 Test Item Value Reference Range Interpretation Comments SODIUM (BEAKER) 134 meq/L 136-145 L (test code = 381) POTASSIUM (BEAKER) 4.2 meq/L 3.5-5.1 (test code = 379) CHLORIDE (BEAKER) 97 meq/L 98-107 L (test code = 382) CO2 (BEAKER) (test 27 meq/L 22-29 code = 355) BLOOD UREA NITROGEN 17 mg/dL 7-21 (BEAKER) (test code = 354) CREATININE (BEAKER) 0.86 mg/dL 0.57-1.25 (test code = 358) GLUCOSE RANDOM 244 mg/dL 70-105 H (BEAKER) (test code = 652) CALCIUM (BEAKER) 9.5 mg/dL 8.4-10.2 (test code = 697) EGFR (BEAKER) (test mL/min/1.73 INSUFFIC IENT CLINICAL code = 1092) sq m DATA TO CALCULA TE ESTIMATED GFR. [id number] 06:42:00 Test Item Value Reference Range Interpretation Comments MAGNESIUM (CHRISTA) (test code = 2.1 mg/dL 1.6-2.6 627) POCT-GLUCOSE [id number] 21:10:00 Test Item Value Reference Range Interpretation Comments POC-GLUCOSE METER 334 mg/dL 70-110 H Notified R Joe MD/TESTED (CHRISTA) (test code = AT [facility] 6720 [facility] 1538) [facility] [address], CHEST, WITHOUT [id number] 20:33:00FINAL REPORT Chest CT without contrast CLINICAL HISTORY: Concern for aspiration. TECHNIQUE: Contiguous axial images of the chest without contrast. This exam was performed according to the departmental dose optimization program which includes automated exposure control, adjustment of the mA and/or kV according to the patient size, and/or use of an iterative reconstruction technique. COMPARISON: None FINDINGS: No pneumothorax. No pleural effusion. Cystic bronchiectasis within the left lingula and bilateral lower lobes with multiple air-fluid levels and mucous plugging within the dilated bronchioles. Scattered tree-in-bud opacities within the right upper and middle lobe. Discoid atelectasis in the right middle and left lower lobes. The heart and great vessels are normal in siz e. Coronary coronary and mitral annulus calcifications. Multiple prominent mediastinal lymph nodes for the largest of which is in the right lower paratracheal region measuring approximately 7 mm short axis, favored to be reactive. No aggressive osseous lesions or acute fractures. Some of the changes in thoracic spine. Anterior wedging of T11 and T12 vertebral body is favored to be chronic. Prominent right axillary lymph node measuring 7 mm in short axis is likely reactive. IMPRESSION: Bilateral lower lobe and left lingular cystic bronchiectasis, nonspecific however this could be seen with recurrent infections such as HAFSA or recurrent aspiration event right middle and upper lobe tree in bud opacities. Minimally chronic inflammatory etiology such as SLE or rheumatoid arthritis should be considered. Signed: Kari Mikeort Verified Date/Time: 10/17/2017 20:33:15 Reading Location: [address] Transitional Reading Room Electronically signed by: KARI MIKE MD on 2017 08:33 PMPOCT-GLUCOSE [id number] 17:45:00 Test Item Value Reference Range Interpretation Comments POC-GLUCOSE METER 270 mg/dL 70-[address] [facility] [address] ([facility]) (test code = MELO Doherty [place] 1538) [id number] POCT-GLUCOSE [id number] 14:25:00 Test Item Value Reference Range Interpretation Comments POC-GLUCOSE METER 181 mg/dL 70-[address] [facility] [address] ([facility]) (test code = MELO Doherty [facility] 1538) [id number] B-TYPE NATRIURETIC FACTOR (BNP)2017-10-17 11:16:00 Test Item Value Reference Range Interpretation Comments B-TYPE NATRIURETIC PEPTIDE (BEAKER) 62 pg/mL 0-100 (test code = 700) RAPID TROPONIN [id number] 11:16:00 Test Item Value Reference Range Interpretation Comments RAPID TROPONIN I (BEAKER) (test code < ng/mL <0.05 = 1483) LACTIC ACID, VENOUS, WHOLE [id number] 11:13:00 Test Item Value Reference Range Interpretation Comments LACTATE BLOOD VENOUS (2) (BEAKER) 1.4 mmol/L 0.5-2.2 (test code = 2872) Effective 07/25/2015: Units/Reference Range ChangeNew: 0.5-2.2 mmol/L Previous: 5-18 mg/dLBASIC METABOLIC [id number] 11:08:00 Test Item Value Reference Range Interpretation Comments SODIUM (BEAKER) 140 meq/L 135-148 (test code = 381) POTASSIUM (BEAKER) 5.0 meq/L 3.6-5.5 SLIGHTLY HEMOLYZED (test code = 379) SPECIMEN. CHLORIDE (BEAKER) 95 meq/L 98-106 L (test code = 382) CO2 (BEAKER) (test 34 meq/L 24-32 H code = 355) BLOOD UREA NITROGEN 11 mg/dL 10-26 (BEAKER) (test code = 354) CREATININE (BEAKER) 0.67 mg/dL 0.50-1.20 (test code = 358) GLUCOSE RANDOM 136 mg/dL 70-110 H (BEAKER) (test code = 652) CALCIUM (BEAKER) 8.9 mg/dL 8.5-10.5 (test code = 697) EGFR (BEAKER) (test mL/min/1.73 INSUFFIC IENT CLINICAL code = 1092) sq m DATA TO CALCULA TE ESTIMATED GFR. CBC W/PLT COUNT & AUTO [id number] 10:55:00 Test Item Value Reference Range Interpretation Comments WHITE BLOOD CELL COUNT 9.9 10e3/i? L 4.0-10.0 (BEAKER) (test code = 775) RED BLOOD CELL COUNT (BEAKER) 5.27 10e6/i? L 4.20-5.80 (test code = 761) HEMOGLOBIN (BEAKER) (test code 15.9 g/dL 13.0-16.8 = 410) HEMATOCRIT (BEAKER) (test code 48.3 % 40.0-50.0 = 411) MEAN CORPUSCULAR VOLUME 91.6 fL 82.0-98.0 (BEAKER) (test code = 753) MEAN CORPUSCULAR HEMOGLOBIN 30.2 pg 27.0-33.0 (BEAKER) (test code = 751) MEAN CORPUSCULAR HEMOGLOBIN 33.0 g/dL 32.0-36.0 CONC (BEAKER) (test code = 752) RED CELL DISTRIBUTION WIDTH 11.6 % 10.3-14.2 (BEAKER) (test code = 412) PLATELET COUNT (BEAKER) (test 252 10e3/i? L 150-430 code = 756) MEAN PLATELET VOLUME (BEAKER) 6.3 fL 6.5-10.5 L (test code = 754) NEUTROPHILS RELATIVE PERCENT 68 % (BEAKER) (test code = 429) LYMPHOCYTES RELATIVE PERCENT 16 % (BEAKER) (test code = 430) MONOCYTES RELATIVE PERCENT 7 % (BEAKER) (test code = 431) EOSINOPHILS RELATIVE PERCENT 8 % (BEAKER) (test code = 432) BASOPHILS RELATIVE PERCENT 2 % (BEAKER) (test code = 437) NEUTROPHILS ABSOLUTE COUNT 6.76 10e3/i? L 1.80-8.00 (BEAKER) (test code = 670) LYMPHOCYTES ABSOLUTE COUNT 1.59 10e3/i? L 1.48-4.50 (BEAKER) (test code = 414) MONOCYTES ABSOLUTE COUNT 0.69 10e3/i? L 0.00-1.30 (BEAKER) (test code = 415) EOSINOPHILS ABSOLUTE COUNT 0.76 10e3/i? L 0.00-0.50 H (BEAKER) (test code = 416) BASOPHILS ABSOLUTE COUNT 0.15 10e3/i? L 0.00-0.20 (BEAKER) (test code = 417) RAD, CHEST, 2 [id number] 10:34:00Reason for exam:->shortness of breathShould this be performed at the bedside?->NoFINAL REPORT Chest, one view. HISTORY: Shortness of breath COMPARISON: 07/28/2017 IMPRESSION: Persistent reticular nodular and linear opacities in the bilateral lower lungs, similar in appearance to 07/28/2017. Persistent bilateral lower lobe pneumonia or aspiration is suspected. No large pleural effusion or pneumothorax. Cardiac mediastinal silhouette is within normal limits. No acute osseous abnormality. Signed: Lalo Hughes MDReport Verified Date/Time: 10/17/2017 10:34:07 Reading Location: [address] Body Reading Room URINALYSIS W/ REFLEX URINE [id number] 12:12:00 Test Item Value Reference Range Interpretation Comments COLOR (BEAKER) (test code = 470) Yellow CLARITY (BEAKER) (test code = 469) Clear SPECIFIC GRAVITY UA (BEAKER) (test 1.020 1.001-1.035 code = 468) PH UA (BEAKER) (test code = 467) 6.0 5.0-8.0 PROTEIN UA (BEAKER) (test code = Trace Negative A 464) GLUCOSE UA (BEAKER) (test code = 500 mg/dL Negative A 365) KETONES UA (BEAKER) (test code = Trace Negative A 371) BILIRUBIN UA (BEAKER) (test code = Negative Negative 462) BLOOD UA (BEAKER) (test code = 461) Negative Negative NITRITE UA (BEAKER) (test code = Negative Negative 465) LEUKOCYTE ESTERASE UA (BEAKER) Negative Negative (test code = 466) UROBILINOGEN UA (BEAKER) (test code 0.2 mg/dL 0.2-1.0 = 463) BACTERIA (BEAKER) (test code = 517) Few RBC UA-MANUAL (BEAKER) (test code = <5 /HPF 1659) WBC UA-MANUAL (BEAKER) (test code = <5 /HPF 1661) SQUAMOUS EPITHELIAL MANUAL (BEAKER) <5 /HPF (test code = 1663) SOURCE(BEAKER) (test code = 3194) RAPID TROPONIN [id number] 11:19:00 Test Item Value Reference Range Interpretation Comments RAPID TROPONIN I (BEAKER) (test code < ng/mL <0.05 = 1483) RAPID [id number] 11:19:00 Test Item Value Reference Range Interpretation Comments RAPID CKMB (BEAKER) (test code = 1.0 ng/mL 0.0-4.3 1482) B-TYPE NATRIURETIC FACTOR (BNP)2017-07-28 11:19:00 Test Item Value Reference Range Interpretation Comments B-TYPE NATRIURETIC PEPTIDE (BEAKER) 12 pg/mL 0-100 (test code = 700) BASIC METABOLIC [id number] 11:15:00 Test Item Value Reference Range Interpretation Comments SODIUM (BEAKER) 138 meq/L 135-148 (test code = 381) POTASSIUM (BEAKER) 4.4 meq/L 3.6-5.5 (test code = 379) CHLORIDE (BEAKER) 101 meq/L 98-106 (test code = 382) CO2 (BEAKER) (test 31 meq/L 24-32 code = 355) BLOOD UREA NITROGEN 6 mg/dL 10-26 L (BEAKER) (test code = 354) CREATININE (BEAKER) 0.71 mg/dL 0.50-1.20 (test code = 358) GLUCOSE RANDOM 117 mg/dL 70-110 H (BEAKER) (test code = 652) CALCIUM (BEAKER) 8.7 mg/dL 8.5-10.5 (test code = 697) EGFR (BEAKER) (test mL/min/1.73 INSUFFIC IENT CLINICAL code = 1092) sq m DATA TO CALCULA TE ESTIMATED GFR. HEPATIC FUNCTION [id number] 11:15:00 Test Item Value Reference Range Interpretation Comments TOTAL PROTEIN (BEAKER) (test code = 6.6 gm/dL 6.0-8.5 770) ALBUMIN (BEAKER) (test code = 1145) 3.7 g/dL 3.5-5.0 BILIRUBIN TOTAL (BEAKER) (test code 0.4 mg/dL 0.1-1.2 = 377) BILIRUBIN DIRECT (BEAKER) (test 0.2 mg/dL 0.0-0.4 code = 706) ALKALINE PHOSPHATASE (BEAKER) (test 65 U/L 30-115 code = 346) AST (SGOT) (BEAKER) (test code = 28 U/L 5-40 353) ALT (SGPT) (BEAKER) (test code = 27 U/L 5-50 347) CBC W/PLT COUNT & AUTO [id number] 11:09:00 Test Item Value Reference Range Interpretation Comments WHITE BLOOD CELL COUNT 9.5 10e3/i? L 4.0-10.0 (BEAKER) (test code = 775) RED BLOOD CELL COUNT (BEAKER) 5.04 10e6/i? L 4.20-5.80 (test code = 761) HEMOGLOBIN (BEAKER) (test code 15.4 g/dL 13.0-16.8 = 410) HEMATOCRIT (BEAKER) (test code 45.8 % 40.0-50.0 = 411) MEAN CORPUSCULAR VOLUME 90.8 fL 82.0-98.0 (BEAKER) (test code = 753) MEAN CORPUSCULAR HEMOGLOBIN 30.5 pg 27.0-33.0 (BEAKER) (test code = 751) MEAN CORPUSCULAR HEMOGLOBIN 33.6 g/dL 32.0-36.0 CONC (BEAKER) (test code = 752) RED CELL DISTRIBUTION WIDTH 13.1 % 10.3-14.2 (BEAKER) (test code = 412) PLATELET COUNT (BEAKER) (test 210 10e3/i? L 150-430 code = 756) MEAN PLATELET VOLUME (BEAKER) 7.3 fL 6.5-10.5 (test code = 754) NEUTROPHILS RELATIVE PERCENT 65 % (BEAKER) (test code = 429) LYMPHOCYTES RELATIVE PERCENT 18 % (BEAKER) (test code = 430) MONOCYTES RELATIVE PERCENT 8 % (BEAKER) (test code = 431) EOSINOPHILS RELATIVE PERCENT 8 % (BEAKER) (test code = 432) BASOPHILS RELATIVE PERCENT 1 % (BEAKER) (test code = 437) NEUTROPHILS ABSOLUTE COUNT 6.18 10e3/i? L 1.80-8.00 (BEAKER) (test code = 670) LYMPHOCYTES ABSOLUTE COUNT 1.66 10e3/i? L 1.48-4.50 (BEAKER) (test code = 414) MONOCYTES ABSOLUTE COUNT 0.78 10e3/i? L 0.00-1.30 (BEAKER) (test code = 415) EOSINOPHILS ABSOLUTE COUNT 0.77 10e3/i? L 0.00-0.50 H (BEAKER) (test code = 416) BASOPHILS ABSOLUTE COUNT 0.09 10e3/i? L 0.00-0.20 (BEAKER) (test code = 417) RAD, CHEST, 2 [id number] 11:08:00Reason for exam:->SHORTNESS OF BREATH FINAL REPORT Chest 4 views 07/28/2017 11:07 AM CLINICAL HISTORY: SHORTNESS OF BREATH COMPARISON: None available IMPRESSION: There is suspected chronic fibrotic changes in the left greater than right lower lungs. Superimposed acute infectious/inflammatory process should be excludedclinically. Cardiomediastinal contours are within normal limits. The central pulmonary vasculature is not engorged. The visualized skeleton is intact. Signed: Will Irby Verified Date/Time: 07/28/2017 11:08:30 Reading Location: [facility] Radiology Reading Room
--- NOTE | 2020-06-26 08:22 | RAD REPORT ---
EXAM DESCRIPTION: CT - Head C Spine Mpr Wo Con - 06/26/2020 7:41 am CLINICAL HISTORY: Head and neck injury status post fall. Head and neck pain COMPARISON: None. TECHNIQUE: Computed axial tomography of the head and cervical spine was obtained. Sagittal and coronal reconstruction was performed. All CT scans are performed using dose optimization technique as appropriate and may include automated exposure control or mA/KV adjustment according to patient size. FINDINGS: An intracranial bleed is not seen. The ventricles are normal in caliber. Moderate low-density areas periventricular, deep and subcortical white matter may represent ischemic changes secondary to small vessel disease. An extra-axial fluid collection is not noted. Moderate mucoperiosteal thickening maxillary sinuses. A cervical fracture is not visualized. No dislocation is noted. Spondylosis involves the cervical spi ne resulting in multilevel mild to moderate foraminal stenosis IMPRESSION: No acute intracranial abnormality is seen. A cervical fracture is not visualized. If the patient continues to have symptoms to suggest intracra nial /spinal cord/ spinal canal pathology then MRI would be recommended
[2020-06-26] MEDS ORDERED: NA CHLORIDE 0.9% 250 ML ONE (08:27)
[2020-06-26 08:49] LABS: Absolute Lymphocytes (CBC) 0.8 K/uL (0.7-4.9); Hematocrit 42.9 % (39.6-49.0); Lymphocytes % 7.9 % (15.3-44.8); MPV 7.9 fL (7.6-11.3); RBC Red Blood Cell Count 5.12 M/uL (4.33-5.43)
[2020-06-26 09:04] LABS: BUN Blood Urea Nitrogen 9 mg/dL (7-18); Bicarbonate 31 mmol/L (21-32); Glucose Level 94 mg/dL (74-106); Sodium Level 137 mmol/L (136-145)
--- NOTE | 2020-06-26 12:24 | ER ---
Nurse's Notes [facility] Name: Juan Luis Salgado Age: 74 yrs Sex: Male : 1945 Arrival Date: 06/26/2020 Time: 04:14 Bed 15 Private MD: Diagnosis: Dizziness and giddiness Presentation: 06/26 04:17 Chief complaint: Patient states: Global headache, pain starts in right shoulder and bb goes up neck to head. Reports a fall weeks ago and has been having headache and unsteady gait since with intermittent numbness to right finger tips. No other numbness or weakness noted. Coronavirus screen: Client denies travel out of the [place] in the last 14 days. At this time, the client does not indicate any symptoms associated with coronavirus-19. Ebola Screen: Patient negative for fever greater than or equal to 101.5 degrees Fahrenheit, and additional compatible Ebola Virus Disease symptoms Patient denies exposure to infectious person. Patient denies travel to an Ebola-affected area in the 21 days before illness onset. No symptoms or risks identified at this time. Initial Sepsis Screen: Does the patient meet any 2 criteria? No. Patient's initial sepsis screen is negative. Does the patient have a suspected source of infection? No. Patient's initial sepsis screen is negative. Risk Assessment: Do you want to hurt yourself or someone else? Patient reports no desire to harm self or others. Onset of symptoms is unknown. 04:17 Method Of Arrival: EMS: [facility] bb 04:17 Acuity: BARYB 3 bb Triage Assessment: 04:22 General: Appears in no apparent distress. comfortable, Behavior is calm, cooperative. bb Pain: Complains of pain in head Pain currently is 8 out of 10 on a pain scale. EENT: No signs and/or symptoms were reported regarding the EENT system. Neuro: Level of Consciousness is awake, alert, Oriented to person, place, time, situation, Door Frame Assembler Machine are equal bilaterally Moves all extremities. Full function Speech is normal, Facial symmetry appears normal, Pupils are PERRLA, Intact Reports headache in entire numbness to right finger tips intermittently Denies difficulty swallowing, paresthesias photophobia diplopia. Cardiovascular: No deficits noted. Capillary refill < 3 seconds Patient's skin is warm and dry. Respiratory: No deficits noted. Airway is patent Respiratory effort is even, unlabored, Respiratory pattern is regular, symmetrical. GI: No signs and/or symptoms were reported involving the gastrointestinal system. : No signs and/or symptoms were reported regarding the genitourinary system. Derm: No signs and/or symptoms reported regarding the dermatologic system. Musculoskeletal: No signs and/or symptoms reported regarding the musculoskeletal system. Historical: - Allergies: 04:22 PENICILLINS; bb 04:22 Aspirin; bb - PMHx: 04:22 COPD; Emphysema; PERIPHERAL NEUROPATHY; Diabetes - NIDDM; Bronchitis; bb - PSHx: 04:22 Unable to obtain; bb - Immunization history:: Adult Immunizations up to date. - Social history:: Smoking status: Patient/guardian denies using tobacco, Patient/guardian denies using alcohol, street drugs, IV drugs. - Family history:: not pertinent. - Hospitalizations: : No recent hospitalization is reported. Screenin:22 Abuse screen: Denies threats or abuse. Denies injuries from another. Nutritional bb screening: No deficits noted. Tuberculosis screening: No symptoms or risk factors identified. Never had TB. Possible symptoms: None Risk factors: None. Fall Risk None identified. Fall in past 12 months (25 points). No secondary diagnosis (0 pts). IV access (20 points). Ambulatory Aid- None/Bed Rest/Nurse Assist (0 pts). Gait- Weak (10 pts.). Mental Status- Oriented to own ability (0 pts). Total Horn Fall Scale indicates High Risk Score (45 or more points). Fall prevention measures have been instituted. Side Rails Up X 2 Placed Close to Nursing Station. Assessment: 04:22 Reassessment: SEE TRIAGE ASSESSMENT. bb 05:18 Reassessment: Patient appears in no apparent distress at this time. No changes from bb previously documented assessment. Patient and/or family updated on plan of care and expected duration. Pain level reassessed. Patient is alert, oriented x 3, equal unlabored respirations, skin warm/dry/pink. 06:11 Reassessment: Patient appears in no apparent distress at this time. No changes from sf previously documented assessment. Patient and/or family updated on plan of care and expected duration. Pain level reassessed. Patient is alert, oriented x 3, equal unlabored respirations, skin warm/dry/pink. 06:47 Reassessment: Patient appears in no apparent distress at this time. No changes from previously documented assessment. Patient and/or family updated on plan of care and expected duration. Pain level reassessed. Patient is alert, oriented x 3, equal unlabored respirations, skin warm/dry/pink. 07:34 Reassessment: Patient appears in no apparent distress at this time. No changes from previously documented assessment. Patient and/or family updated on plan of care and expected duration. Pain level reassessed. Patient is alert, oriented x 3, equal unlabored respirations, skin warm/dry/pink. 08:04 Reassessment: attempt at IV access X 4. Charge nurse and MD aware. 09:34 Reassessment: Patient appears in no apparent distress at this time. Patient and/or bw family updated on plan of care and expected duration. Pain level reassessed. Patient is alert, oriented x 3, equal unlabored respirations, skin warm/dry/pink. 10:30 Reassessment: No changes from previously documented assessment. Patient and/or family ll1 updated on plan of care and expected duration. Pain level reassessed. 11:31 Reassessment: No changes from previously documented assessment. Patient and/or family ll1 updated on plan of care and expected duration. Pain level reassessed. 12:50 General: Appears in no apparent distress. comfortable, Behavior is calm, cooperative. vg1 Pain: Denies pain. Neuro: Level of Consciousness is awake, alert, obeys commands, Oriented to person, place, time, situation. Cardiovascular: Patient's skin is warm and dry. Respiratory: Airway is patent Respiratory effort is even, unlabored. GI: No signs and/or symptoms were reported involving the gastrointestinal system. : No signs and/or symptoms were reported regarding the genitourinary system. EENT: No signs and/or symptoms were reported regarding the EENT system. Derm: Skin is pink, warm \T\ dry. Musculoskeletal: Circulation, motion, and sensation intact. 12:51 Reassessment: Pt is currently up fo d/c, currently eating a lunch tray that was vg1 previously ordered. Vital Signs: 04:15 BP 116 / 51; Pulse 73; Resp 18; Pulse Ox 93% ; bb 04:17 BP 118 / 73 (auto/); Pulse 81 MON; Resp 20 S; Temp 97.5(TE); Pulse Ox 87% on R/A; bb Weight 77.11 kg (R); Height 5 ft. 6 in. (167.64 cm) (R); Pain 8/10; 04:22 Pulse Ox 95% on 4 lpm NC; bb 04:30 BP 102 / 66; Pulse 75; Resp 18; Pulse Ox 95% on 4 lpm NC; bb 05:20 BP 118 / 68; Pulse 67; Resp 18; Pulse Ox 97% ; bb 05:30 BP 120 / 74; Pulse 66; Resp 18; Pulse Ox 98% ; sf 06:00 BP 124 / 66; Pulse 67; Resp 18; Pulse Ox 97% ; sf 06:30 BP 120 / 71; Pulse 66; Resp 18; Pulse Ox 98% ; sf 07:34 BP 118 / 67; Pulse 67; Resp 20; Pulse Ox 97% 4 lpm ; wh 09:34 Pulse 65; Resp 18; Pulse Ox 96% on 4 lpm NC; bw 11:31 BP 114 / 68; Pulse 66; Resp 18; Pulse Ox 97% on 4 lpm NC; ll1 12:51 BP 127 / 70; Pulse 68; Resp 14; Pulse Ox 98% on 4 lpm NC; vg1 04:17 Body Mass Index 27.44 (77.11 kg, 167.64 cm) bb Juan Coma Score: 12:22 Eye Response: spontaneous(4). Verbal Response: oriented(5). Motor Response: obeys rn commands(6). Total: 15. ED Course: 04:14 Patient arrived in ED. mw2 04:17 Stephanie Schreiber RN is Primary Nurse. bb 04:17 Malik Liao MD is Attending Physician. pkl 04:18 Oxygen administration via nasal cannula \T\ 4L/min. bb 04:21 Triage completed. bb 04:22 Arm band placed on. bb 04:22 Patient has correct armband on for positive identification. Placed in gown. Bed in low bb position. Call light in reach. Side rails up X2. media services specialist on. Pulse ox on. NIBP on. Door closed. Noise minimized. Visitors limited. Lights dimmed. Warm blanket given. Verbal reassurance given. 04:22 Response to oxygen therapy: symptoms improved. bb 05:36 Malik Liao MD is Attending Physician. pkl 06:11 Primary Nurse role handed off by Stephanie Schreiber RN sf 06:11 Anam Mccartney, INÉS is Primary Nurse. sf 06:11 Warm blanket given. sf 07:01 Shay Trejo MD is Attending Physician. rn 07:06 Primary Nurse role handed off by Anam Mccartney RN 07:09 Report given to INÉS Saleh. sf 07:25 Leida Szymanski RN is Primary Nurse. wh 07:26 Inserted saline lock: 20 gauge in right antecubital area, using aseptic technique. mt 07:41 CT Head C Spine In Process Unspecified. EDMS 08:34 Initial lab(s) drawn, by ma, sent to lab. Inserted saline lock: 22 gauge in left wrist, em1 using aseptic technique. Blood collected. 08:51 Basic Metabolic Panel Sent. bw 08:51 CBC with Diff Sent. bw 12:01 Primary Nurse role handed off by Leida Szymanski RN vg1 12:01 Jessica Ibrahim RN is Primary Nurse. vg1 12:23 Scott Valentin MD is Referral Physician. rn 13:05 No provider procedures requiring assistance completed. IV discontinued, intact, vg1 bleeding controlled, No redness/swelling at site. Pressure dressing applied. Administered Medications: 08:51 Drug: NS 0.9% 250 ml Route: IV; Rate: bolus; Site: right hand; bw 12:42 Follow up: IV Status: Completed infusion; IV Intake: 250ml vg1 12:49 Drug: Meclizine 50 mg Route: PO; vg1 12:50 Follow up: Response: Medication administered at discharge. vg1 Intake: 12:42 IV: 250ml; Total: 250ml. vg1 Output: 11:25 Urine: 400ml; Total: 400ml. ll1 Outcome: 12:23 Discharge ordered by . rn 13:05 Discharged to home ambulatory. vg1 13:05 Condition: stable 13:05 Discharge instructions given to patient, Instructed on discharge instructions, follow up and referral plans. medication usage, Demonstrated understanding of instructions, follow-up care, medications, Prescriptions given X 1. 13:05 Patient left the ED. vg1 Signatures: Dispatcher [employer] EDMS Amparo Gloria Pin, MD MD pkl Ballard, Brenda, RN RN bb Nieto, Roman, MD MD rn Martinez, Eric em1 Bob, Betty Szymanski, Leida, RN RN Sofia, Ramirez mw2 Patrice, Jessica, RN RN vg1 Tanja Dan, RN RN ll1 Anam Mccartney, RN RN sf Tushar, Therese, RN RN
--- NOTE | 2020-06-26 12:24 | EDPHYS ---
Physician Documentation [facility] Name: Juan Luis Salgado Age: 74 yrs Sex: Male : 1945 Arrival Date: 06/26/2020 Time: 04:14 Bed 15 Private MD: ED Physician Shay Trejo HPI: 06/26 07:45 This 74 yrs old Male presents to ER via EMS with complaints of headache. rn 07:45 The patient complains of pain to the top of head. The patient describes the headache as rn aching. Onset: The symptoms/episode began/occurred 2 week(s) ago. Associated signs and symptoms: Pertinent positives: dizziness, Pertinent negatives: altered mental status, fever, neck stiffness, rash, vision changes, vision loss, vomiting, weakness. Severity of symptoms: At its worst the pain was moderate, in the emergency department the pain is unchanged. The symptoms are alleviated by nothing. the symptoms are aggravated by movement. The patient has not experienced similar symptoms in the past. The patient has not recently seen a physician. Reports fell a few weeks ago, since then has been having intermittent headache, right neck pain, feels unsteady, and feels like "drunk when walks". No fever. No vomiting/diarrhea/chest pain. + COPD but no increased dyspnea. Reports eating and drinking ok. . Historical: - Allergies: 04:22 PENICILLINS; bb 04:22 Aspirin; bb - PMHx: 04:22 COPD; Emphysema; PERIPHERAL NEUROPATHY; Diabetes - NIDDM; Bronchitis; bb - PSHx: 04:22 Unable to obtain; bb - Immunization history:: Adult Immunizations up to date. - Social history:: Smoking status: Patient/guardian denies using tobacco, Patient/guardian denies using alcohol, street drugs, IV drugs. - Family history:: not pertinent. - Hospitalizations: : No recent hospitalization is reported. ROS: 07:45 Constitutional: Negative for fever, chills, and weight loss, Eyes: Negative for injury, rn pain, redness, and discharge, Neck: + right neck pain Cardiovascular: Negative for chest pain, palpitations, and edema, Respiratory: Negative for shortness of breath, pleuritic chest pain, Abdomen/GI: Negative for abdominal pain, nausea, vomiting, diarrhea, and constipation, Back: Negative for injury and pain, MS/Extremity: Negative for injury and deformity, Skin: Negative for injury, rash, and discoloration, Neuro: Negative for weakness, numbness, tingling, and seizure. Exam: 07:45 Constitutional: This is a well developed, well nourished patient who is awake, alert, rn and in no acute distress. Woke him up from sleep to examine him. Head/Face: Normocephalic, atraumatic. Eyes: Periorbital areas with no swelling, redness, or edema. Cardiovascular: Regular rate and rhythm with a normal S1 and S2. No gallops, murmurs, or rubs. Normal PMI, no JVD. No pulse deficits. Respiratory: Lungs have equal breath sounds bilaterally, clear to auscultation and percussion. No rales, rhonchi or wheezes noted. No increased work of breathing, no retractions or nasal flaring. Abdomen/GI: Soft, non-tender, with normal bowel sounds. No distension or tympany. No guarding or rebound. No evidence of tenderness throughout. Skin: Warm, dry with normal turgor. Normal color with no rashes, no lesions, and no evidence of cellulitis. MS/ Extremity: Pulses equal, no cyanosis. Neurovascular intact. Full, normal range of motion. Equal circumference. Neuro: Awake and alert, GCS 15, oriented to person, place, time, and situation. Cranial nerves II-XII grossly intact. Motor strength 4/5 in all extremities. Sensory grossly intact. NO nystagmus, no reproduction of dizziness with turning of head to either side. Vital Signs: 04:15 BP 116 / 51; Pulse 73; Resp 18; Pulse Ox 93% ; bb 04:17 BP 118 / 73 (auto/); Pulse 81 MON; Resp 20 S; Temp 97.5(TE); Pulse Ox 87% on R/A; bb Weight 77.11 kg (R); Height 5 ft. 6 in. (167.64 cm) (R); Pain 8/10; 04:22 Pulse Ox 95% on 4 lpm NC; bb 04:30 BP 102 / 66; Pulse 75; Resp 18; Pulse Ox 95% on 4 lpm NC; bb 05:20 BP 118 / 68; Pulse 67; Resp 18; Pulse Ox 97% ; bb 05:30 BP 120 / 74; Pulse 66; Resp 18; Pulse Ox 98% ; sf 06:00 BP 124 / 66; Pulse 67; Resp 18; Pulse Ox 97% ; sf 06:30 BP 120 / 71; Pulse 66; Resp 18; Pulse Ox 98% ; sf 07:34 BP 118 / 67; Pulse 67; Resp 20; Pulse Ox 97% 4 lpm ; wh 09:34 Pulse 65; Resp 18; Pulse Ox 96% on 4 lpm NC; bw 11:31 BP 114 / 68; Pulse 66; Resp 18; Pulse Ox 97% on 4 lpm NC; ll1 12:51 BP 127 / 70; Pulse 68; Resp 14; Pulse Ox 98% on 4 lpm NC; vg1 04:17 Body Mass Index 27.44 (77.11 kg, 167.64 cm) bb Juan Coma Score: 12:22 Eye Response: spontaneous(4). Verbal Response: oriented(5). Motor Response: obeys rn commands(6). Total: 15. MDM: 04:17 Patient medically screened. pkl 07:02 Patient medically screened. rn 12:22 Differential diagnosis: migraine, tension headache, vasomotor headache, neck strain, rn contusion, concussion, post-concussion syndrome, vertigo. Data reviewed: vital signs, nurses notes, lab test result(s), EKG, radiologic studies, CT scan, and as a result, I will discharge patient. Counseling: I had a detailed discussion with the patient and/or guardian regarding: the historical points, exam findings, and any diagnostic results supporting the discharge/admit diagnosis, lab results, radiology results, the need for outpatient follow up, to return to the emergency department if symptoms worsen or persist or if there are any questions or concerns that arise at home. Response to treatment: the patient's symptoms have markedly improved after treatment, and as a result, I will discharge patient. Special discussion: I discussed with the patient/guardian in detail that at this point there is no indication for admission to the hospital. It is understood, however, that if the symptoms persist or worsen the patient needs to return immediately for re-evaluation. ED course: Pt improved, tolerated PO, neg ct head/neck, no UTI, normal neuro exam, will dc home with pcp and neuro f/u. . 06/26 07:08 Order name: CBC with Diff rn 06/26 07:08 Order name: Basic Metabolic Panel rn 06/26 07:08 Order name: Urine Microscopic Only rn 06/26 07:09 Order name: CBC with Automated Diff; Complete Time: 10:29 EDMS 06/26 07:09 Order name: Basic Metabolic Panel; Complete Time: 10:29 EDMS 06/26 07:09 Order name: Urine Microscopic Only EDMS 06/26 07:08 Order name: CT Head C Spine; Complete Time: 08:22 rn 06/26 07:08 Order name: IV Start; Complete Time: 08:51 rn 06/26 07:08 Order name: Urine Dipstick-Ancillary (obtain specimen); Complete Time: 12:02 rn 06/26 07:08 Order name: EKG; Complete Time: 07:09 rn 06/26 11:41 Order name: Diet Regular; Complete Time: 11:41 bd 06/26 07:08 Order name: EKG - Nurse/Tech; Complete Time: 07:56 rn Administered Medications: 08:51 Drug: NS 0.9% 250 ml Route: IV; Rate: bolus; Site: right hand; 12:42 Follow up: IV Status: Completed infusion; IV Intake: 250ml vg1 12:49 Drug: Meclizine 50 mg Route: PO; vg1 12:50 Follow up: Response: Medication administered at discharge. vg1 Disposition: 06/26/20 12:23 Discharged to Home. Impression: Dizziness and giddiness. - Condition is Stable. - Discharge Instructions: Dizziness, Head Injury, Adult. - Prescriptions for Meclizine 25 mg Oral Tablet - take 1 tablet by ORAL route every 8 hours As needed; 30 tablet. - Medication Reconciliation Form, Thank You Letter, Antibiotic Education, Prescription Opioid Use form. - Follow up: Scott Valentin MD; When: As needed; Reason: Recheck today's complaints, Re-evaluation by your physician. - Problem is new. - Symptoms have improved. Signatures: Dispatcher [employer] EDMalik Rao MD MD pkl Ballard, Brenda RN RN Shay Magana MD MD rn Garcia, Victoria, RN RN vg1 Therese Finley RN RN Corrections: (The following items were deleted from the chart) 13:05 12:23 06/26/2020 12:23 Discharged to Home. Impression: Dizziness and giddiness. vg1 Condition is Stable. Forms are Medication Reconciliation Form, Thank You Letter, Antibiotic Education, Prescription Opioid Use. Follow up: Scott Valentin; When: As needed; Reason: Recheck today's complaints, Re-evaluation by your physician. Problem is new. Symptoms have improved. rn
[2020-06-26] MEDS ORDERED: MECLIZINE HCL 12.5 MG TAB ONE (13:01)
[2020-06-26 13:07] LABS: Urine Bacteria <20 /HPF (NONE SEEN); Urine RBC <5 /HPF (NONE SEEN)
[2020-06-26 13:23] VITALS: TEMP 97.5
[2020-06-26 13:36] VITALS: BP 127/70; O2SAT 98
[2020-06-26 15:12] LABS: Urine Blood Negative (Negative); Urine Glucose 2+ (Negative); Urine Protein Negative (Negative)
--- NOTE | 2020-06-27 12:51 | EKG ---
Test Date: 2020-06-26 Test Time: 07:52:00 Claims Representative: LILLIE MEASUREMENT RESULTS: Intervals: Rate: 65 MA: 172 QRSD: 92 QT: 414 QTc: 430 [place]: P: 70 MA: 172 QRS: -73 T: 81 INTERPRETIVE STATEMENTS: Normal sinus rhythm Left axis deviation Nonspecific T wave abnormality Abnormal ECG Compared to ECG 04/11/2017 22:49:49 T-wave abnormality now present Electronically Signed On 06-27-20 12:46:51 CDT by Reynaldo Joiner
== END 2020-06-26 13:05 | disposition home or self-care (01) ==
LOC: ER 04:12
DX: R42 Dizziness and giddiness (principal); J44.9 Chronic obstructive pulmonary disease, unspecified; W19.XXXA Unspecified fall, initial encounter; Z88.0 Allergy status to penicillin; Z88.6 Allergy status to analgesic agent
CPT/HCPCS: 85025; 80048; 36415; 70450; 72125; J7050; 81003; 81015; 93005; 96365; 96366; 99285

== ENCOUNTER 2022-03-22 18:52 | Inpatient (IN) | payer OTHER ==
--- OUTSIDE RECORDS SUMMARY | 2022-03-22 19:01 | XMS REPORT | Continuity of Care Document ---
:1945 Author Organization [facility] t Address [address] [place] [place] [address] Care Team Providers Name Role Phone MAGDALENO ROSSI Primary Care Physician Unavailable Watson Saucedo Attending Clinician Unavailable EDWINA NÚÑEZ Attending Clinician Unavailable EMRE NÚÑEZ Attending Clinician Unavailable EMRE NÚÑEZ Attending Clinician Unavailable Deven Deleon RN Attending Clinician Unavailable MERISSA GREENWOOD Attending Clinician Unavailable Epi Carvajal Attending Clinician Suzan Hogue MD Attending Clinician Merissa Greenwood MD Attending Clinician Emre úNñez DO Attending Clinician Doctor Unassigned, [place] Attending Clinician Unavailable Ruben RTTeresa C Attending Clinician Unavailable CASSIE PALMER Attending Clinician Unavailable Palmer PAC, Cassie S Attending Clinician Testing, [facility] Pulmonary Function Attending Clinician Unavailfilipe Anders RN, Aline Bettencourt Attending Clinician Unavailable Cherelle BURROWS, Trista Gilmore Attending Clinician GRETCHEN WHITMAN Attending Clinician Unavailable Gretchen Whitman DO Attending Clinician Kelby Valenzuela MD Attending Clinician [phone] KELBY VALENZUELA Attending Clinician Unavailable [facility] Attending Clinician Unavailable Fellow, Pulmonary Attending Clinician Unavailable BOOKER VILLAVICENCIO Attending Clinician Unavailable Serena Chino Attending Clinician Mohan Sandoval Attending Clinician Booker Villavicencio MD Attending Clinician MOHAN TOLEDO Attending Clinician Unavailable STONE SHARMA Attending Clinician Unavailable SHIN LUCAS Attending Clinician Unavailable Moose Rendon S Attending Clinician JOSÉ MIGUEL, SENDIL K.H. Attending Clinician Unavailable José Miguel CONTEH, Senddoug K.H. Attending Clinician MOOSE SIMON Attending Clinician Unavailable PAN CHANEY Attending Clinician Unavailable Oral Buenrostro MD Attending Clinician Unknown, Attending Attending Clinician Unavailable Karel Corley MD Attending Clinician EDWIN JASON Attending Clinician Unavailable ROCIO DAILY Attending Clinician Unavailable Watson Saucedo Admitting Clinician Unavailable SUZAN HOGUE Admitting Clinician Unavailable Suzan Hogue MD Admitting Clinician MERISSA GREENWOOD Admitting Clinician Unavailable Merissa Greenwood MD Admitting Clinician EMRE NÚÑEZ Admitting Clinician Unavailable Emre Núñez DO Admitting Clinician MOHAN TOLEDO Admitting Clinician Unavailable Yifan Pagan Admitting Clinician Unavailable SAL MORA Admitting Clinician Unavailable KATARZYNA NOLAN Admitting Clinician Unavailable Payers Payer Name Policy Type Policy Number Effective Date Expiration Date Doug DEVLIN PayPay [id number] 2018spring 00:00:00 WELLMED/UHC DUAL [id number] 2021 COMP CHOICE PPO 00:00:00 DSNP MEDICAID [place] [id number] 2020 00:00:00 Problems Condition Condition Condition Status Onset Resolution Last Treating Co mments Source Name Details Category Date Date Treatment Clinician Date Essential Essential Disease Active 2021-03 Uni vers hypertensi hypertensi 2-25 it y of on on 00:00: [place] [address] Medical Branch Dyslipidem Dyslipidem Disease Active 2021-03 U long ia ia 2-25 ity of 00:00: [place] [facility] Branch 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 2-25 [place] calcificat calcificat [place] seen ion seen [address] scan on CT scan Br anch Cigarette Cigarette Disease Active 2021-03 Uni vers nicotine nicotine 2-25 ity of dependence dependence [place] , , 00 Medical uncomplica uncomplica Br anch samuel samuel Dizzy Dizzy Disease Active 2021-03 Univers spells spells 2-25 ity of 00:00: [place] [facility] Benign Benign Disease Active 2021-03 Univers paroxysmal paroxysmal 2-24 it y of positional positional 00:[place] vertigo, vertigo, 00 Medica l unspecifie unspecifie Br anch d d laterality laterality 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 acute 6-02 ity of exacerbati exacerbati 00[place] Pneumonia Pneumonia Disease Active Uni vers and and 3-27 ity of influenza [place] Hypotensio Hypotensio Disease Active 2020-03 U norbertoers n n 1-28 ity of 00:00: [place] [address] Medical Branch Diabetes Diabetes Disease Active 2019-03 Unive rs mellitus mellitus 1-13 ity of 00:00: [address] Branch COPD COPD Disease Active 2017-[address] [facility] exacerbati exacerbati 0-14 [facility] on on 00:00: [place] [address] Center Pneumonia Pneumonia Disease Active 2017-[address] due to due to 0[facility]14 [facility] infectious infectious 00:00: Me dical organism organism 00 Center Febrile Febrile Disease Active 2017-[address] [facility] illness illness 0-13 [facility] 00:00: Medical 00 Center Aspiration Aspiration Disease Active C [facility] pneumonia pneumonia 10-18 [facility] 00:00: Medical 00 [facility] Hypoxemia Hypoxemia Disease Active [facility] 00:[facility]: Medical 00 Center Allergies, Adverse Reactions, Alerts Allergy Allergy Status Severity Reaction(s) Onset Inactive Treating Comm ents Source Name Type Date Date Clinician Penicill Propensi Active Shortness Of Methodi ins ty to Breath 6-08 st adverse 00:00: Hospita reaction 00 l s to drug PENICILL DRUG Active SOB Univers IN INGREDI 8-23 ity of 00:00: [address] Penicill Propensi Active Shortness of Univers in ty to Breath 8-23 ity of adverse 00:00: [place] reaction 00 [facility] Propensi Active Itching [facility] Juice ty to 7 [facility] adverse 00:00: Medical reaction 00 Center s ORANGE Allergy Active Itching 2017- [facility] JUICE 728 00:00: 00 ORANGE DRUG Active ITCHING 2018-0 Univers JUICE INGREDI 7- ity of 00:00: [address] Branch Aspirin Propensi Active Hives 2017- [facility] ty to 5-08 [facility] adverse 00:00: Medical reaction 00 Center s Penicill Drug Active Shortness Of [facility] I [facility] ins Allergy Breath 5-08 [facility] 00:00: Medical 00 [place] ASPIRIN DRUG Active Hives Univers INGREDI 5-08 ity of 00:00: [address] PENICILL Allergy Active High Sob 2017- [facility] INS 5-08 00:00: 00 ASPIRIN Allergy Active Hives 2017-0 [facility] 5-08 00:00: 00 Penicill DA Active SV EDEMA, RASH; HC A ins pt tolerated [address] cefepime 00:00: Celis during [facility] 07/26/13 admission Medical [place] aspirin DA Active SV [facility] 3-17 Clear 00:00: Celis [facility] azithrom DA Active [facility] ycin 3-17 Clear 00:00: [facility] aspirin DA Active SV DIZZINESS"FU [facility] NNY FEELING" - Martha r 00:00: Celis 00 [facility] azithrom DA Active MO RASH-UNKNOWN HC A ycin 06-06 Clear 00:00: Celis 00 [facility] Family History Family Member Diagnosis Comments Start Date Stop Date Source Other Colon cancer [facility] Natural sister Breast cancer [facility] Social History Social Habit Start Date Stop Date Quantity Comments Source History of Cigarette Smoker Universi ty of tobacco use [place] [facility] History SDOH [facility] Alcohol Binge Medical Effie ter History SDOH [facility] Alcohol Frequency Medical Center History SDOH [facility] Alcohol Std Medical Cente r Drinks Exposure to 2022-03-05 2022-03-15 Not sure University SARS-CoV-2 00:00:00 22:06:00 [facility] [place] [facility] (event) Branch Cigarette 2021-12-31 2021-12-31 University of pack-years 00:00:00 00:00:00 [facility] Education 2021-06-16 2021-06-16 5 University of 00:00:00 00:00:00 [facility] Cigarettes smoked 2020-08-28 2020-08-28 Methodi current (pack per 00:00:00 00:00:00 Hospita day) - Reported Alcohol intake 2020-08-28 2020-08-28 Current drinker of Me thodist 00:00:00 00:00:00 alcohol (finding) Hospita l Tobacco Comment 2020-08-28 2020-08-28 1 PK/ 2 WEEKS Method ist 00:00:00 00:00:00 Hospital History SDOH 2017-10-17 2017-10-[address] [facility] [facility] Alcohol Comment 00:00:00 00:00:00 Medical C enter Tobacco use and 2017-10-17 2017-10-[address] [facility] [facility] kes exposure 00:00:00 00:00:00 [facility] Center Sex [birth year] At [birth year] [facility] 00:00[facility] 00[facility]00[facility]00 Hospital Smoking Status Start Date Stop Date Source Occasional tobacco 2021-12-31 00:00:00 [facility] [place] smoker Medical Branch Smokes tobacco daily 2020-08-28 00:00:00 [facility] Former smoker 2017-10-17 00:00:00 2017-10-17 [facility] 00:00:00 Center Medications Ordered Filled Start Stop Current Ordering Indication Dosage Frequency Signature Comments Components Source Medication Medication Date Date Medication? Clinician (SIG) Name Name enoxaparin 2021-03 Yes 40mg 40 mg, Unive rs (LOVENOX) 2-25 Subcutaneo ity of injection 23:00: [place] 40 mg 00 First dose Medical on [facility] 03/16/22 at 1700, Until Discontinu ed, Routine omeprazole 2021-03 Yes 20mg 20 mg, Unive rs (PRILOSEC) 2-25 Oral, ity of capsule 20 15:00: DAILY, [place] mg 00 First dose Medical on [facility] 03/16/22 at 0900, Until Discontinu ed, Routine citalopram 2021-03 Yes 10mg 10 mg, Unive rs (CELEXA) 2-25 Oral, ity of tablet 10 15:00: DAILY, [place] mg 00 First dose Medical on [facility] 03/16/22 at 0900, Until Discontinu ed, Routine Sliding 2021-03 Yes Subcutaneo Univ ers Scale 2-25 us, TID ity of Insulin - 14:00: MEALS, [place] Lispro 00 First dose Medical (HumaLOG) + on [facility] 03/16/22 Testing at 0800, Until Discontinu ed, Routine atorvastati 2021-03 Yes 10mg Take 10 mg Univers n 10 mg 2-25 by mouth ity of tablet 12:54: at [place] [address] bedtime. Medical Branch citalopram 2021-03 Yes 20mg Take 20 mg U nivers 20 mg 2-25 by mouth ity of tablet 12:54: daily. [address] Branch albuterol 2021-03 Yes 2.5mg Inhale 2.5 U nivers 2.5 mg /3 2-25 mg 3 ity of mL (0.083 12:54: (three) [place] ) 32 times Medical nebulizer daily. Branch solution traMADoL 50 2021-03 Yes tramadol Un toy mg tablet 2-25 50 mg ity of 12:54: tablet [address] Branch nicotine 2021-03 Yes Nicotrol Unive rs (NICOTROL) 2-25 10 mg ity of 10 mg 12:54: inhalation [place] inhaler 32 cartridge Medical 1 Branch CARTRIDGE NEEDED 16 TIME(S) A DAY INHALATION 30 DAYS fluticasone 2021-03 Yes Trelegy Uni vers -umeclidin- 2-25 Ellipta ity o f vilanter 12:54: 100 [place] 100-62.5-25 32 mcg-62.5 Medi jovita mcg DsDv mcg-25 mcg Branc h powder for inhalation INHALE 1 PUFF ONCE A DAY 90 DAYS dapaglifloz 2021-03 Yes Xigduo XR U nivers in-metformi 2-25 5 mg-1,000 it y of n (XIGDUO 12:54: mg [place] XR) 5-1,000 32 tablet,ext Me dical mg TBph ended Branch release TAKE 2 TABLETS WITH DINNER ONCE A DAY ORALLY 90 DAYS busPIRone 5 2021-03 Yes buspirone U nivers mg tablet 2-25 5 mg ity of 12:54: tablet [place] [address] TAKE 1 Medical TABLETS Branch THREE TIMES A DAY ORALLY 90 DAYS buPROPion 2021-03 Yes bupropion Uni vers HCL, 2-25 HCl 150 mg ity of smoking 12:54: tablet,12 [place] deter, 150 32 hr Medical mg Tb12 sustained- Branch release(sm oking deterrent) TAKE 1 TABLET TWICE A DAY ORALLY 90 DAYS atorvastati 2021-03 Yes 10mg Take 10 mg Univers n 10 mg 2-25 by mouth ity of tablet 12:54: at [place] [address] bedtime. Medical Branch citalopram 2021-03 Yes 20mg Take 20 mg U nivers 20 mg 2-25 by mouth ity of tablet 12:54: daily. [place] [address] Medical Branch albuterol 2021-03 Yes 2.5mg Inhale 2.5 U nivers 2.5 mg /3 2-25 mg 3 ity of mL (0.083 12:54: (three) [place] ) 32 times Medical nebulizer daily. Branch solution traMADoL 50 2021-03 Yes tramadol Un toy mg tablet 2-25 50 mg ity of 12:54: tablet [place] [address] Medical Branch nicotine 2021-03 Yes Nicotrol Unive rs (NICOTROL) 2-25 10 mg ity of 10 mg 12:54: inhalation [place] inhaler 32 cartridge Medical 1 Branch CARTRIDGE NEEDED 16 TIME(S) A DAY INHALATION 30 DAYS fluticasone 2021-03 Yes Trelegy Uni vers -umeclidin- 2-25 Ellipta ity o f vilanter 12:54: 100 [place] 100-62.5-25 32 mcg-62.5 Medi jovita mcg DsDv mcg-25 mcg Branc h powder for inhalation INHALE 1 PUFF ONCE A DAY 90 DAYS dapaglifloz 2021-03 Yes Xigduo XR U nivers in-metformi 2-25 5 mg-1,000 it y of n (XIGDUO 12:54: mg [place] XR) 5-1,000 32 tablet,ext Me dical mg TBph ended Branch release TAKE 2 TABLETS WITH DINNER ONCE A DAY ORALLY 90 DAYS busPIRone 5 2021-03 Yes buspirone U nivers mg tablet 2-25 5 mg ity of 12:54: tablet [place] 32 TAKE 1 Medical TABLETS Branch THREE TIMES A DAY ORALLY 90 DAYS buPROPion 2021-03 Yes bupropion Uni vers HCL, 2-25 HCl 150 mg ity of smoking 12:54: tablet,12 [place] deter, 150 32 hr Medical mg Tb12 sustained- Branch release(sm oking deterrent) TAKE 1 TABLET TWICE A DAY ORALLY 90 DAYS NaCl 0.9% 2021-03 Yes 1000mL at 125 Univ ers (NS) IV 2-25 mL/hr, IV ity of infusion 07:45: Infusion, [place] 1,000 mL 00 CONTINUOUS Medic al , Starting Branch on [place] 03/16/22 at 0145, Until Discontinu ed, Routine gabapentin 2021-03 Yes 300mg 300 mg, Uni vers (NEURONTIN) 2-25 Oral, TID, it y of capsule 300 06:45: First dose [place] mg 00 on [facility] 03/16/22 Branch at 0045, Until Discontinu ed, Routine atorvastati 2021-03 Yes 10mg 10 mg, Univ ers n (LIPITOR) 2-25 Oral, QHS, it y of tablet 10 06:45: [place] mg 00 on [facility] 03/16/22 Branch at 0045, Until Discontinu ed, Routine ipratropium 2021-03 Yes 3mL 3 mL, Unive rs -albuteroL 2-25 Inhalation ity of (DUONEB) 06:45: , QID, [place] 0.5 mg-3 00 First dose Medic al mg(2.5 mg on [facility] base)/3 mL 03/16/22 nebulizer at 0045, solution 3 Until mL Discontinu ed, Routine budesonide 2021-03 Yes .5mg 0.5 mg, Univ ers (PULMICORT 2-25 Inhalation ity of RESPULE) 06:45: , BID, [place] nebulizer 00 First dose Medi jovita solution on [place] Branch 0.5 mg 03/16/22 at 0045, Until Discontinu ed, Routine busPIRone 2021-03 Yes 5mg 5 mg, Univers (BUSPAR) 2-25 Oral, TID, ity o f tablet 5 mg 06:45: First dose [place] 00 on [facility] 03/16/22 Branch at 0045, Until Discontinu ed, Routine tamsulosin 2021-03 Yes .4mg 0.4 mg, [facility] ers (FLOMAX) 2-25 Oral, QHS, ity o f capsule 0.4 06:45: First dose [place] mg 00 on [facility] 03/16/22 Branch at 0045, Until Discontinu ed, Routine meclizine 2021-03 Yes 25mg 25 mg, Univer s (TRAVEL-EAS 2-25 Oral, TID, it y of E 06:45: First dose [place] (MECLIZINE) 00 (after Medica l ) tablet 25 last Branch mg reorder) on [place] 03/16/22 at 0045, Until Discontinu ed, VIVIANA ondansetron 2021-03 Yes 4mg 4 mg, Slow Univers (ZOFRAN 2-25 IV Push, ity of (PF)) 06:42: Q6HPRN, [place] injection 4 18 Starting Medi jovita mg on [facility] 03/16/22 at 0042, Until Discontinu ed, Routine, Nausea and Vomiting (N/V) NaCl 0.9% 2021-03- No 500mL at 999 Univ ers (NS) bolus 2-25 12-25 mL/hr, 500 it y of infusion 02:00: 03:05 mL, IV [place] 500 mL 00 :00 Infusion, Medical ONCE, 1 Branch dose, On 03/15/22 at 2000, STAT iopamidol 2021-03- No [id number] 100mL 100 mL, Univers (ISOVUE 2-25 12-25 Intravenou ity o f 370-500 mL) 00:32: 00:32 s, ONCE, 1 [place] injection 00 :00 dose, On Medica l 100 mL Sat Branch 03/15/22 at 1845, Routine NaCl 0.9% 2021-03- No 500mL at 999 Univ ers (NS) bolus 2-25 12-25 mL/hr, 500 it y of infusion 00:15: 02:02 mL, IV [place] 500 mL 00 :00 Infusion, Medical ONCE, 1 Branch dose, On 03/15/22 at 1815, STAT meclizine 2021-03- No 25mg 25 mg, Unive rs (TRAVEL-EAS 2-24 12-25 Oral, ity of E 23:45: 00:08 ONCE, 1 [place] (MECLIZINE) 00 :00 dose, On Medi jovita ) tablet 25 Sat Branch mg 03/15/22 at 1745, VIVIANA neomycin-po 2021-0 Yes [id number] 3[drp] Place 3 Univers lymyxin-hyd 6-19 [id number] Drops in it y of rocortisone 00:00: both ears [place] otic 00 4 (four) Medical solution times Branch daily. neomycin-po 2021-0 Yes [id number] 3[drp] Place 3 Univers lymyxin-hyd 6-19 [id number] Drops in it y of rocortisone 00:00: both ears [place] otic 00 4 (four) Medical solution times Branch daily. neomycin-po 2021-0 Yes [id number] 3[drp] Place 3 Univers lymyxin-hyd 6-19 [id number] Drops in it y of rocortisone 00:00: both ears [place] otic 00 4 (four) Medical solution times Branch daily. neomycin-po 2021-0 Yes [id number] 3[drp] Place 3 Univers lymyxin-hyd 6-19 [id number] Drops in it y of rocortisone 00:00: both ears [place] otic 00 4 (four) Medical solution times Branch daily. neomycin-po 2021-0 Yes [id number] 3[drp] Place 3 Univers lymyxin-hyd 6-19 [id number] Drops in it y of rocortisone 00:00: both ears [place] otic 00 4 (four) Medical solution times Branch daily. neomycin-po 2021-0 Yes [id number] 3[drp] Place 3 Univers lymyxin-hyd 6-19 [id number] Drops in it y of rocortisone 00:00: both ears [place] otic 00 4 (four) Medical solution times Branch daily. neomycin-po 2021-0 Yes [id number] 3[drp] Place 3 Univers lymyxin-hyd 6-19 [id number] Drops in it y of rocortisone 00:00: both ears [place] otic 00 4 (four) Medical solution times Branch daily. neomycin-po 2021-0 Yes [id number] 3[drp] Place 3 Univers lymyxin-hyd 6-19 [id number] Drops in it y of rocortisone 00:00: both ears [place] otic 00 4 (four) Medical solution times Branch daily. neomycin-po 2021-0 Yes [id number] 3[drp] Place 3 Univers lymyxin-hyd 6-19 [id number] Drops in it y of rocortisone 00:00: both ears [place] otic 00 4 (four) Medical solution times Branch daily. neomycin-po 2021-0 Yes [id number] 3[drp] Place 3 Univers lymyxin-hyd 6-19 [id number] Drops in it y of rocortisone 00:00: [place] otic 00 4 (four) Medical solution times Branch daily. citalopram Yes 20mg Take 20 mg U nivers 20 mg 6-03 by mouth ity of tablet 14:58: daily. [address] Branch albuterol Yes 2.5mg Inhale 2.5 U nivers 2.5 mg /3 6-03 mg 3 ity of mL (0.083 14:58: (three) [place] %) 54 times Medical nebulizer daily. Branch solution traMADoL 50 Yes tramadol Un toy mg tablet 03 50 mg ity of 14:58: tablet [place] [address] Medical Branch nicotine Yes Nicotrol Unive rs (NICOTROL) 08-23 10 mg ity of 10 mg 14:58: inhalation [place] inhaler 54 cartridge Medical 1 Branch CARTRIDGE NEEDED 16 TIME(S) A DAY INHALATION 30 DAYS fluticasone Yes Trelegy Uni vers -umeclidin- 08-23 Ellipta ity o f vilanter 14:58: 100 [place] 100-62.5-25 54 mcg-62.5 Medi jovita mcg DsDv mcg-25 mcg Branc h powder for inhalation INHALE 1 PUFF ONCE A DAY 90 DAYS dapaglifloz Yes Xigduo XR U nivers in-metformi 6-03 5 mg-1,000 it y of n (XIGDUO 14:58: mg [place] XR) 5-1,000 54 tablet,ext Me dical mg TBph ended Branch release TAKE 2 TABLETS WITH DINNER ONCE A DAY ORALLY 90 DAYS busPIRone 5 Yes buspirone U nivers mg tablet 6-03 5 mg ity of 14:58: tablet [place] 54 TAKE 1 Medical TABLETS Branch THREE TIMES A DAY ORALLY 90 DAYS buPROPion Yes bupropion Uni vers HCL, 6-03 HCl 150 mg ity of smoking 14:58: tablet,12 [place] deter, 150 54 hr Medical mg Tb12 sustained- Branch release(sm oking deterrent) TAKE 1 TABLET TWICE A DAY ORALLY 90 DAYS atorvastati Yes 10mg Take 10 mg Univers n 10 mg 6-03 by mouth ity of tablet 14:58: at [place] [address] bedtime. Medical Branch citalopram Yes 20mg Take 20 mg U nivers 20 mg 6-03 by mouth ity of tablet 14:58: daily. [place] [address] Medical Branch albuterol Yes 2.5mg Inhale 2.5 U nivers 2.5 mg /3 6-03 mg 3 ity of mL (0.083 14:58: (three) [place] %) 54 times Medical nebulizer daily. Branch solution traMADoL 50 Yes tramadol Un toy mg tablet 03 50 mg ity of 14:58: tablet [place] [address] Medical Branch nicotine Yes Nicotrol Unive rs (NICOTROL) 6-03 10 mg ity of 10 mg 14:58: inhalation [place] inhaler 54 cartridge Medical 1 Branch CARTRIDGE NEEDED 16 TIME(S) A DAY INHALATION 30 DAYS fluticasone Yes Trelegy Uni vers -umeclidin- - Ellipta ity o f vilanter 14:58: 100 [place] 100-62.5-25 54 mcg-62.5 Medi jovita mcg DsDv mcg-25 mcg Branc h powder for inhalation INHALE 1 PUFF ONCE A DAY 90 DAYS dapaglifloz Yes Xigduo XR U nivers in-metformi 6-03 5 mg-1,000 it y of n (XIGDUO 14:58: mg [place] XR) 5-1,000 54 tablet,ext Me dical mg TBph ended Branch release TAKE 2 TABLETS WITH DINNER ONCE A DAY ORALLY 90 DAYS busPIRone 5 Yes buspirone U nivers mg tablet 6-03 5 mg ity of 14:58: tablet [place] 54 TAKE 1 Medical TABLETS Branch THREE TIMES A DAY ORALLY 90 DAYS buPROPion Yes bupropion Uni vers HCL, 6-03 HCl 150 mg ity of smoking 14:58: tablet,12 [place] deter, 150 54 hr Medical mg Tb12 sustained- Branch release(sm oking deterrent) TAKE 1 TABLET TWICE A DAY ORALLY 90 DAYS atorvastati Yes 10mg Take 10 mg Univers n 10 mg 6-03 by mouth ity of tablet 14:58: at [place] [address] bedtime. Medical Branch citalopram Yes 20mg Take 20 mg U nivers 20 mg 6-03 by mouth ity of tablet 14:58: daily. [place] [address] Medical Branch albuterol Yes 2.5mg Inhale 2.5 U nivers 2.5 mg /3 6-03 mg 3 ity of mL (0.083 14:58: (three) [place] %) 54 times Medical nebulizer daily. Branch solution traMADoL 50 Yes tramadol Un toy mg tablet 03 50 mg ity of 14:58: tablet [place] [address] Medical Branch nicotine Yes Nicotrol Unive rs (NICOTROL) 6-03 10 mg ity of 10 mg 14:58: inhalation [place] inhaler 54 cartridge Medical 1 Branch CARTRIDGE NEEDED 16 TIME(S) A DAY INHALATION 30 DAYS fluticasone Yes Trelegy Uni vers -umeclidin- 6-03 Ellipta ity o f vilanter 14:58: 100 [place] 100-62.5-25 54 mcg-62.5 Medi jovita mcg DsDv mcg-25 mcg Branc h powder for inhalation INHALE 1 PUFF ONCE A DAY 90 DAYS dapaglifloz Yes Xigduo XR U nivers in-metformi 6-03 5 mg-1,000 it y of n (XIGDUO 14:58: mg [place] XR) 5-1,000 54 tablet,ext Me dical mg TBph ended Branch release TAKE 2 TABLETS WITH DINNER ONCE A DAY ORALLY 90 DAYS busPIRone 5 Yes buspirone U nivers mg tablet 6-03 5 mg ity of 14:58: tablet [place] 54 TAKE 1 Medical TABLETS Branch THREE TIMES A DAY ORALLY 90 DAYS buPROPion Yes bupropion Uni vers HCL, 6-03 HCl 150 mg ity of smoking 14:58: tablet,12 [place] deter, 150 54 hr Medical mg Tb12 sustained- Branch release(sm oking deterrent) TAKE 1 TABLET TWICE A DAY ORALLY 90 DAYS atorvastati Yes 10mg Take 10 mg Univers n 10 mg 6-03 by mouth ity of tablet 14:58: at [place] bedtime. Medical Branch citalopram Yes 20mg Take 20 mg U nivers 20 mg 6-03 by mouth ity of tablet 14:58: daily. [place] [address] Medical Branch albuterol Yes 2.5mg Inhale 2.5 U nivers 2.5 mg /3 6-03 mg 3 ity of mL (0.083 14:58: (three) [place] %) 54 times Medical nebulizer daily. Branch solution traMADoL 50 Yes tramadol Un toy mg tablet 03 50 mg ity of 14:58: tablet [place] 54 Medical Branch nicotine Yes Nicotrol Unive rs (NICOTROL) 603 10 mg ity of 10 mg 14:58: inhalation [place] inhaler 54 cartridge Medical 1 Branch CARTRIDGE NEEDED 16 TIME(S) A DAY INHALATION 30 DAYS fluticasone Yes Trelegy Uni vers -umeclidin- 6- Ellipta ity o f vilanter 14:58: 100 [place] 100-62.5-25 54 mcg-62.5 Medi jovita mcg DsDv mcg-25 mcg Branc h powder for inhalation INHALE 1 PUFF ONCE A DAY 90 DAYS dapaglifloz Yes Xigduo XR U nivers in-metformi 6-03 5 mg-1,000 it y of n (XIGDUO 14:58: mg [place] XR) 5-1,000 54 tablet,ext Me dical mg TBph ended Branch release TAKE 2 TABLETS WITH DINNER ONCE A DAY ORALLY 90 DAYS busPIRone 5 Yes buspirone U nivers mg tablet 6-03 5 mg ity of 14:58: tablet [place] 54 TAKE 1 Medical TABLETS Branch THREE TIMES A DAY ORALLY 90 DAYS buPROPion Yes bupropion Uni vers HCL, 6-03 HCl 150 mg ity of smoking 14:58: tablet,12 [place] deter, 150 54 hr Medical mg Tb12 sustained- Branch release(sm oking deterrent) TAKE 1 TABLET TWICE A DAY ORALLY 90 DAYS atorvastati Yes 10mg Take 10 mg Univers n 10 mg 03 by mouth ity of tablet 14:58: at [place] [address] bedtime. Medical Branch citalopram Yes 20mg Take 20 mg U nivers 20 mg 6-03 by mouth ity of tablet 14:58: daily. [place] [address] Medical Branch albuterol Yes 2.5mg Inhale 2.5 U nivers 2.5 mg /3 6-03 mg 3 ity of mL (0.083 14:58: (three) [place] %) 54 times Medical nebulizer daily. Branch solution traMADoL 50 Yes tramadol Un toy mg tablet 08-23 50 mg ity of 14:58: tablet [place] [address] Medical Branch nicotine Yes Nicotrol Unive rs (NICOTROL) 08-23 10 mg ity of 10 mg 14:58: inhalation [place] inhaler 54 cartridge Medical 1 Branch CARTRIDGE NEEDED 16 TIME(S) A DAY INHALATION 30 DAYS fluticasone Yes Trelegy Uni vers -umeclidin- 03 Ellipta ity o f vilanter 14:58: 100 [place] 100-62.5-25 54 mcg-62.5 Medi jovita mcg DsDv mcg-25 mcg Branc h powder for inhalation INHALE 1 PUFF ONCE A DAY 90 DAYS dapaglifloz Yes Xigduo XR U nivers in-metformi 6-03 5 mg-1,000 it y of n (XIGDUO 14:58: mg [place] XR) 5-1,000 54 tablet,ext Me dical mg TBph ended Branch release TAKE 2 TABLETS WITH DINNER ONCE A DAY ORALLY 90 DAYS busPIRone 5 Yes buspirone U nivers mg tablet 6-03 5 mg ity of 14:58: tablet [place] 54 TAKE 1 Medical TABLETS Branch THREE TIMES A DAY ORALLY 90 DAYS buPROPion Yes bupropion Uni vers HCL, 6-03 HCl 150 mg ity of smoking 14:58: tablet,12 [place] deter, 150 54 hr Medical mg Tb12 sustained- Branch release(sm oking deterrent) TAKE 1 TABLET TWICE A DAY ORALLY 90 DAYS atorvastati Yes 10mg Take 10 mg Univers n 10 mg 03 by mouth ity of tablet 14:58: at [place] [address] bedtime. Medical Branch citalopram Yes 20mg Take 20 mg U nivers 20 mg 03 by mouth ity of tablet 14:58: daily. [place] [address] Medical Branch albuterol Yes 2.5mg Inhale 2.5 U nivers 2.5 mg /3 6-03 mg 3 ity of mL (0.083 14:58: (three) [place] %) 54 times Medical nebulizer daily. Branch solution traMADoL 50 Yes tramadol Un toy mg tablet 08-23 50 mg ity of 14:58: tablet [place] [address] Medical Branch nicotine Yes Nicotrol Unive rs (NICOTROL) 08-23 10 mg ity of 10 mg 14:58: inhalation [place] inhaler 54 cartridge Medical 1 Branch CARTRIDGE NEEDED 16 TIME(S) A DAY INHALATION 30 DAYS fluticasone Yes Trelegy Uni vers -umeclidin- 603 Ellipta ity o f vilanter 14:58: 100 [place] 100-62.5-25 54 mcg-62.5 Medi jovita mcg DsDv mcg-25 mcg Branc h powder for inhalation INHALE 1 PUFF ONCE A DAY 90 DAYS dapaglifloz Yes Xigduo XR U nivers in-metformi 6-03 5 mg-1,000 it y of n (XIGDUO 14:58: mg [place] XR) 5-1,000 54 tablet,ext Me dical mg TBph ended Branch release TAKE 2 TABLETS WITH DINNER ONCE A DAY ORALLY 90 DAYS busPIRone 5 Yes buspirone U nivers mg tablet 6-03 5 mg ity of 14:58: tablet [place] 54 TAKE 1 Medical TABLETS Branch THREE TIMES A DAY ORALLY 90 DAYS buPROPion Yes bupropion Uni vers HCL, 6-03 HCl 150 mg ity of smoking 14:58: tablet,12 [place] deter, 150 54 hr Medical mg Tb12 sustained- Branch release(sm oking deterrent) TAKE 1 TABLET TWICE A DAY ORALLY 90 DAYS atorvastati Yes 10mg Take 10 mg Univers n 10 mg 03 by mouth ity of tablet 14:58: at [place] bedtime. Medical Branch citalopram Yes 20mg Take 20 mg U nivers 20 mg 6-03 by mouth ity of tablet 14:58: daily. [place] [address] Medical Branch albuterol Yes 2.5mg Inhale 2.5 U nivers 2.5 mg /3 6-03 mg 3 ity of mL (0.083 14:58: (three) [place] %) 54 times Medical nebulizer daily. Branch solution traMADoL 50 Yes tramadol Un toy mg tablet 08-23 50 mg ity of 14:58: tablet [place] [address] Medical Branch nicotine Yes Nicotrol Unive rs (NICOTROL) 603 10 mg ity of 10 mg 14:58: inhalation [place] inhaler 54 cartridge Medical 1 Branch CARTRIDGE NEEDED 16 TIME(S) A DAY INHALATION 30 DAYS fluticasone Yes Trelegy Uni vers -umeclidin- 6-03 Ellipta ity o f vilanter 14:58: 100 [place] 100-62.5-25 54 mcg-62.5 Medi jovita mcg DsDv mcg-25 mcg Branc h powder for inhalation INHALE 1 PUFF ONCE A DAY 90 DAYS dapaglifloz Yes Xigduo XR U nivers in-metformi 6-03 5 mg-1,000 it y of n (XIGDUO 14:58: mg [place] XR) 5-1,000 54 tablet,ext Me dical mg TBph ended Branch release TAKE 2 TABLETS WITH DINNER ONCE A DAY ORALLY 90 DAYS busPIRone 5 Yes buspirone U nivers mg tablet 03 5 mg ity of 14:58: tablet [place] 54 TAKE 1 Medical TABLETS Branch THREE TIMES A DAY ORALLY 90 DAYS buPROPion Yes bupropion Uni vers HCL, 6- HCl 150 mg ity of smoking 14:58: tablet,12 [place] deter, 150 54 hr Medical mg Tb12 sustained- Branch release(sm oking deterrent) TAKE 1 TABLET TWICE A DAY ORALLY 90 DAYS atorvastati Yes 10mg Take 10 mg Univers n 10 mg 08-23 by mouth ity of tablet 14:58: at [place] [address] bedtime. Medical Branch citalopram Yes 20mg Take 20 mg U nivers 20 mg 08-23 by mouth ity of tablet 14:58: daily. [place] [address] Medical Branch albuterol Yes 2.5mg Inhale 2.5 U nivers 2.5 mg /3 -03 mg 3 ity of mL (0.083 14:58: (three) [place] %) 54 times Medical nebulizer daily. Branch solution traMADoL 50 Yes tramadol Un toy mg tablet 08-23 50 mg ity of 14:58: tablet [place] [address] Medical Branch nicotine Yes Nicotrol Unive rs (NICOTROL) 08-23 10 mg ity of 10 mg 14:58: inhalation [place] inhaler 54 cartridge Medical 1 Branch CARTRIDGE NEEDED 16 TIME(S) A DAY INHALATION 30 DAYS fluticasone Yes Trelegy Uni vers -umeclidin- 08-23 Ellipta ity o f vilanter 14:58: 100 [place] 100-62.5-25 54 mcg-62.5 Medi jovita mcg DsDv mcg-25 mcg Branc h powder for inhalation INHALE 1 PUFF ONCE A DAY 90 DAYS dapaglifloz Yes Xigduo XR U nivers in-metformi 03 5 mg-1,000 it y of n (XIGDUO 14:58: mg [place] XR) 5-1,000 54 tablet,ext Me dical mg TBph ended Branch release TAKE 2 TABLETS WITH DINNER ONCE A DAY ORALLY 90 DAYS busPIRone 5 Yes buspirone U nivers mg tablet -03 5 mg ity of 14:58: tablet [place] 54 TAKE 1 Medical TABLETS Branch THREE TIMES A DAY ORALLY 90 DAYS buPROPion Yes bupropion Uni vers HCL, 6-03 HCl 150 mg ity of smoking 14:58: tablet,12 [place] deter, 150 54 hr Medical mg Tb12 sustained- Branch release(sm oking deterrent) TAKE 1 TABLET TWICE A DAY ORALLY 90 DAYS atorvastati Yes 10mg Take 10 mg Univers n 10 mg 03 by mouth ity of tablet 14:58: at [place] 54 bedtime. Medical Branch dextrometho Yes [id number] 5mL Take 5 mL Univers rphan-guaif 6-03 by mouth ity of enesin 00:00: every 6 [place] 10-100 mg/5 00 (six) Medical mL solution hours as Bran ch needed for Cough. dextrometho Yes [id number] 5mL Take 5 mL Univers rphan-guaif 6-03 by mouth ity of enesin 00:00: every 6 [place] 10-100 mg/5 00 (six) Medical mL solution hours as Bran ch needed for Cough. dextrometho Yes [id number] 5mL Take 5 mL Univers rphan-guaif 6-03 by mouth ity of enesin 00:00: every 6 [place] 10-100 mg/5 00 (six) Medical mL solution hours as Bran ch needed for Cough. dextrometho Yes [id number] 5mL Take 5 mL Univers rphan-guaif 6-03 by mouth ity of enesin 00:00: every 6 [place] 10-100 mg/5 00 (six) Medical mL solution hours as Bran ch needed for Cough. dextrometho Yes [id number] 5mL Take 5 mL Univers rphan-guaif 6-03 by mouth ity of enesin 00:00: every 6 [place] 10-100 mg/5 00 (six) Medical mL solution hours as Bran ch needed for Cough. dextrometho Yes [id number] 5mL Take 5 mL Univers rphan-guaif 6-03 by mouth ity of enesin 00:00: every 6 [place] 10-100 mg/5 00 (six) Medical mL solution hours as Bran ch needed for Cough. dextrometho Yes [id number] 5mL Take 5 mL Univers rphan-guaif 6-03 by mouth ity of enesin 00:00: every 6 [place] 10-100 mg/5 00 (six) Medical mL solution hours as Bran ch needed for Cough. dextrometho Yes [id number] 5mL Take 5 mL Univers rphan-guaif 6-03 by mouth ity of enesin 00:00: every 6 [place] 10-100 mg/5 00 (six) Medical mL solution hours as Bran ch needed for Cough. dextrometho Yes [id number] 5mL Take 5 mL Univers rphan-guaif 6-03 by mouth ity of enesin 00:00: every 6 [place] 10-100 mg/5 00 (six) Medical mL solution hours as Bran ch needed for Cough. dextrometho Yes [id number] 5mL Take 5 mL Univers rphan-guaif 6-03 by mouth ity of enesin 00:00: every 6 [place] 10-100 mg/5 00 (six) Medical mL solution hours as Bran ch needed for Cough. albuterol Yes [id number] 2.5mg Inhale 0.5 Univers 2.5 mg/0.5 1-31 mL every 6 ity of mL 00:00: (six) [place] nebulizer 00 hours as Medica l solution needed for Branc h Wheezing. albuterol-i Yes [id number] 1{puff} Inhale 1 Univers pratropium 1-31 Puff 4 ity of (COMBIVENT 00:00: (four) [place] RESPIMAT) 00 times Medical 20-100 daily. Branch mcg/actuati on inhaler albuterol Yes [id number] 2.5mg Inhale 0.5 Univers 2.5 mg/0.5 1-31 mL every 6 ity of mL 00:00: (six) [place] nebulizer 00 hours as Medica l solution needed for Branc h Wheezing. albuterol-i Yes [id number] 1{puff} Inhale 1 Univers pratropium 1-31 Puff 4 ity of (COMBIVENT 00:00: (four) [place] RESPIMAT) 00 times Medical 20-100 daily. Branch mcg/actuati on inhaler albuterol Yes [id number] 2.5mg Inhale 0.5 Univers 2.5 mg/0.5 1-31 mL every 6 ity of mL 00:00: (six) [place] nebulizer 00 hours as Medica l solution needed for Branc h Wheezing. albuterol-i Yes [id number] 1{puff} Inhale 1 Univers pratropium 1-31 Puff 4 ity of (COMBIVENT 00:00: (four) [place] RESPIMAT) 00 times Medical 20-100 daily. Branch mcg/actuati on inhaler albuterol Yes [id number] 2.5mg Inhale 0.5 Univers 2.5 mg/0.5 1-31 mL every 6 ity of mL 00:00: (six) [place] nebulizer 00 hours as Medica l solution needed for Branc h Wheezing. albuterol-i Yes [id number] 1{puff} Inhale 1 Univers pratropium 1-31 Puff 4 ity of (COMBIVENT 00:00: (four) [place] RESPIMAT) 00 times Medical 20-100 daily. Branch mcg/actuati on inhaler albuterol Yes [id number] 2.5mg Inhale 0.5 Univers 2.5 mg/0.5 1-31 mL every 6 ity of mL 00:00: (six) [place] nebulizer 00 hours as Medica l solution needed for Branc h Wheezing. albuterol-i Yes [id number] 1{puff} Inhale 1 Univers pratropium 1-31 Puff 4 ity of (COMBIVENT 00:00: (four) [place] RESPIMAT) 00 times Medical 20-100 daily. Branch mcg/actuati on inhaler albuterol Yes [id number] 2.5mg Inhale 0.5 Univers 2.5 mg/0.5 1-31 mL every 6 ity of mL 00:00: (six) [place] nebulizer 00 hours as Medica l solution needed for Branc h Wheezing. albuterol-i Yes [id number] 1{puff} Inhale 1 Univers pratropium 1-31 Puff 4 ity of (COMBIVENT 00:00: (four) [place] RESPIMAT) 00 times Medical 20-100 daily. Branch mcg/actuati on inhaler albuterol Yes [id number] 2.5mg Inhale 0.5 Univers 2.5 mg/0.5 1-31 mL every 6 ity of mL 00:00: (six) [place] nebulizer 00 hours as Medica l solution needed for Branc h Wheezing. albuterol-i Yes [id number] 1{puff} Inhale 1 Univers pratropium 1-31 Puff 4 ity of (COMBIVENT 00:00: (four) [place] RESPIMAT) 00 times Medical 20-100 daily. Branch mcg/actuati on inhaler albuterol Yes [id number] 2.5mg Inhale 0.5 Univers 2.5 mg/0.5 1-31 mL every 6 ity of mL 00:00: (six) [place] nebulizer 00 hours as Medica l solution needed for Branc h Wheezing. albuterol-i Yes [id number] 1{puff} Inhale 1 Univers pratropium 1-31 Puff 4 ity of (COMBIVENT 00:00: (four) [place] RESPIMAT) 00 times Medical 20-100 daily. Branch mcg/actuati on inhaler albuterol Yes [id number] 2.5mg Inhale 0.5 Univers 2.5 mg/0.5 1-31 mL every 6 ity of mL 00:00: (six) [place] nebulizer 00 hours as Medica l solution needed for Branc h Wheezing. albuterol-i Yes [id number] 1{puff} Inhale 1 Univers pratropium 1-31 Puff 4 ity of (COMBIVENT 00:00: (four) [place] RESPIMAT) 00 times Medical 20-100 daily. Branch mcg/actuati on inhaler albuterol Yes [id number] 2.5mg Inhale 0.5 Univers 2.5 mg/0.5 1-31 mL every 6 ity of mL 00:00: (six) [place] nebulizer 00 hours as Medica l solution needed for Branc h Wheezing. albuterol-i Yes [id number] 1{puff} Inhale 1 Univers pratropium 1-31 Puff 4 ity of (COMBIVENT 00:00: (four) [place] RESPIMAT) 00 times Medical 20-100 daily. Branch mcg/actuati on inhaler Nebulizer & 2020-03 Yes [id number] Use as Univers Compressor 2-14 directed ity o f For Neb 00:00: [facility] Nebulizer & 2020-03 Yes [id number] Use as Univers Compressor 2-14 directed ity o f For Neb 00:00: [facility] Nebulizer & 2020-03 Yes [id number] Use as Univers Compressor 2-14 directed ity o f For Neb 00:00: [facility] Nebulizer & 2020-03 Yes [id number] Use as Univers Compressor 2-14 directed ity o f For Neb 00:00: [facility] Nebulizer & 2020-03 Yes [id number] Use as Univers Compressor 2-14 directed ity o f For Neb 00:00: [facility] Nebulizer & 2020-03 Yes [id number] Use as Univers Compressor 2-14 directed ity o f For Neb 00:00: [place] [facility] Nebulizer & 2020-03 Yes [id number] Use as Univers Compressor 2-14 directed ity o f For Neb 00:00: [facility] Nebulizer & 2020-03 Yes [id number] Use as Univers Compressor 2-14 directed ity o f For Neb 00:00: [facility] Nebulizer & 2020-03 Yes [id number] Use as Univers Compressor 2-14 directed ity o f For Neb 00:00: [facility] Nebulizer & 2020-03 Yes [id number] Use as Univers Compressor 2-14 directed ity o f For Neb 00:00: [place] [facility] sodium 2020-03 Yes [id number] 4mL Inhale 4 Un toy chloride 7% 2-05 mL daily. ity of nebulizer 00:00: [place] solution Medical Branch tamsulosin 2020-03 Yes [id number] .4mg Take 1 Univers 0.4 mg 24 2-05 capsule by ity of hr capsule 00:00: mouth at [place] as 00 bedtime. Medical Branch sodium 2020- Yes [id number] 4mL Inhale 4 Un toy chloride 7% 2-05 mL daily. ity of nebulizer 00:00: [place] solution Medical Branch tamsulosin 2020-03 Yes [id number] .4mg Take 1 Univers 0.4 mg 24 2-05 capsule by ity of hr capsule 00:00: mouth at [place] as 00 bedtime. Medical Branch sodium 2020- Yes [id number] 4mL Inhale 4 Un toy chloride 7% 2-05 mL daily. ity of nebulizer 00:00: [place] solution Medical Branch tamsulosin 2020-03 Yes [id number] .4mg Take 1 Univers 0.4 mg 24 2-05 capsule by ity of hr capsule 00:00: mouth at [place] as 00 bedtime. Medical Branch sodium 2020-03 Yes [id number] 4mL Inhale 4 Un toy chloride 7% 2-05 mL daily. ity of nebulizer 00:00: [place] solution Medical Branch tamsulosin 2020-03 Yes [id number] .4mg Take 1 Univers 0.4 mg 24 2-05 capsule by ity of hr capsule 00:00: mouth at [place] as 00 bedtime. Medical Branch sodium 2020-03 Yes [id number] 4mL Inhale 4 Un toy chloride 7% 2-05 mL daily. ity of nebulizer 00:00: [place] solution Medical Branch tamsulosin 2020-03 Yes [id number] .4mg Take 1 Univers 0.4 mg 24 2-05 capsule by ity of hr capsule 00:00: mouth at [place] as 00 bedtime. Medical Branch sodium 2020- Yes [id number] 4mL Inhale 4 Un toy chloride 7% 2-05 mL daily. ity of nebulizer 00:00: [place] solution Medical Branch tamsulosin 2020-03 Yes [id number] .4mg Take 1 Univers 0.4 mg 24 2-05 capsule by ity of hr capsule 00:00: mouth at [place] as 00 bedtime. Medical Branch sodium 2020- Yes [id number] 4mL Inhale 4 Un toy chloride 7% 2-05 mL daily. ity of nebulizer 00:00: [place] solution 00 Medical Branch tamsulosin 2020- Yes [id number] .4mg Take 1 Univers 0.4 mg 24 2-05 capsule by ity of hr capsule 00:00: mouth at [place] as 00 bedtime. Medical Branch sodium 2020-1 Yes [id number] 4mL Inhale 4 Un toy chloride 7% 2-05 mL daily. ity of nebulizer 00:00: [place] solution 00 Medical Branch tamsulosin 2020- Yes [id number] .4mg Take 1 Univers 0.4 mg 24 2-05 capsule by ity of hr capsule 00:00: mouth at [place] 00 bedtime. Medical Branch sodium 2020- Yes [id number] 4mL Inhale 4 Un toy chloride 7% 2-05 mL daily. ity of nebulizer 00:00: [place] solution 00 Medical Branch tamsulosin 2020- Yes [id number] .4mg Take 1 Univers 0.4 mg 24 2-05 capsule by ity of hr capsule 00:00: mouth at [place] 00 bedtime. Medical Branch sodium 2020- Yes [id number] 4mL Inhale 4 Un toy chloride 7% 2-05 mL daily. ity of nebulizer 00:00: [place] solution Medical Branch tamsulosin 2020- Yes [id number] .4mg Take 1 Univers 0.4 mg 24 2-05 capsule by ity of hr capsule 00:00: mouth at [place] 00 bedtime. Medical Branch meclizine 2020-0 Yes [id number] 25mg Take 1 U nivers 25 mg 8-09 tablet by ity of tablet 00:00: mouth [place] 00 every 6 Medical (six) Branch hours as needed for Dizziness. meclizine 2020-0 Yes [id number] 25mg Take 1 U nivers 25 mg 8-09 tablet by ity of tablet 00:00: mouth [place] 00 every 6 Medical (six) Branch hours as needed for Dizziness. meclizine 2020-0 Yes [id number] 25mg Take 1 U nivers 25 mg 8-09 tablet by ity of tablet 00:00: mouth [place] 00 every 6 Medical (six) Branch hours as needed for Dizziness. meclizine 2020-0 Yes [id number] 25mg Take 1 U nivers 25 mg 8-09 tablet by ity of tablet 00:00: mouth [place] 00 every 6 Medical (six) Branch hours as needed for Dizziness. meclizine 0 Yes [id number] 25mg Take 1 U nivers 25 mg 8-09 tablet by ity of tablet 00:00: mouth [place] 00 every 6 Medical (six) Branch hours as needed for Dizziness. meclizine 0 Yes [id number] 25mg Take 1 U nivers 25 mg 8-09 tablet by ity of tablet 00:00: mouth [place] 00 every 6 Medical (six) Branch hours as needed for Dizziness. meclizine 0 Yes [id number] 25mg Take 1 U nivers 25 mg 8-09 tablet by ity of tablet 00:00: mouth [place] 00 every 6 Medical (six) Branch hours as needed for Dizziness. meclizine Yes [id number] 25mg Take 1 U nivers 25 mg 8-09 tablet by ity of tablet 00:00: mouth [place] 00 every 6 Medical (six) Branch hours as needed for Dizziness. meclizine 0 Yes [id number] 25mg Take 1 U nivers 25 mg 8-09 tablet by ity of tablet 00:00: mouth [place] 00 every 6 Medical (six) Branch hours as needed for Dizziness. meclizine 0 Yes [id number] 25mg Take 1 U nivers 25 mg 8-09 tablet by ity of tablet 00:00: mouth [place] 00 every 6 Medical (six) Branch hours as needed for Dizziness. amLODIPine Yes 10mg Take 10 mg M [facility]i (NORVASC) 6-[address] 10 mg 23:13: [facility] tablet 06 l atorvastati Yes 10mg Take 10 mg Methodi n (LIPITOR) 6-[address] 10 mg 23:13: [facility] tablet 06 l glipiZIDE Yes 5mg Take 5 mg [facility] (GLUCOTROL) 6-[address] 5 MG tablet 23:13: Hospit a 06 l losartan Yes 25mg Take 25 mg [facility] (COZAAR) 25 6-[address] MG tablet 23:13: [facility]osp[facility] 06 l DICLOFENAC 2019-0 Yes [id number] TAKE 1 Univers 75 mg EC 9-15 TABLET BY ity of tablet 00:00: MOUTH [place] 00 TWICE A Medical DAY WITH Branch MEALS DICLOFENAC 2020-0 Yes [id number] TAKE 1 Univers 75 mg EC 9-15 TABLET BY ity of tablet 00:00: MOUTH [place] 00 TWICE A Medical DAY WITH Branch MEALS DICLOFENAC 2020-0 Yes [id number] TAKE 1 Univers 75 mg EC 9-15 4102 TABLET BY ity of tablet 00:00: MOUTH [place] 00 TWICE A Medical DAY WITH Branch MEALS DICLOFENAC 2020-0 Yes [id number] TAKE 1 Univers 75 mg EC 9-15 4102 TABLET BY ity of tablet 00:00: MOUTH [place] 00 TWICE A Medical DAY WITH Branch MEALS DICLOFENAC 2020-0 Yes [id number] TAKE 1 Univers 75 mg EC 9-15 4102 TABLET BY ity of tablet 00:00: MOUTH [place] 00 TWICE A Medical DAY WITH Branch MEALS DICLOFENAC 2020-0 Yes [id number] TAKE 1 Univers 75 mg EC 9-15 4102 TABLET BY ity of tablet 00:00: MOUTH [place] 00 TWICE A Medical DAY WITH Branch MEALS DICLOFENAC 2020-0 Yes [id number] TAKE 1 Univers 75 mg EC 9-15 4102 TABLET BY ity of tablet 00:00: MOUTH [place] 00 TWICE A Medical DAY WITH Branch MEALS DICLOFENAC 2020-0 Yes [id number] TAKE 1 Univers 75 mg EC 9-15 4102 TABLET BY ity of tablet 00:00: MOUTH [place] 00 TWICE A Medical DAY WITH Branch MEALS DICLOFENAC 2020-0 Yes [id number] TAKE 1 Univers 75 mg EC 9-15 4102 TABLET BY ity of tablet 00:00: MOUTH [place] 00 TWICE A Medical DAY WITH Branch MEALS DICLOFENAC 2020-0 Yes [id number] TAKE 1 [facility] 75 mg EC 9-15 4102 TABLET BY ity of tablet 00:00: MOUTH [place] 00 TWICE A Medical DAY WITH Branch MEALS diclofenac 2020-0 Yes TAKE 1 [facility] (VOLTAREN) 9-[address] 75 MG EC 00:00: MOUTH [facility] tablet 00 TWICE A l DAY WITH MEALS omeprazole 2020-[address] [facility] (PRILOSEC[facility] 3[facility]06 [facility] 00 [facility] metFORMIN 2019-0 Yes TAKE 2 Univer s 500 mg 9-08 TABLETS BY ity of tablet 00:00: MOUTH [place] 00 TWICE A Medical DAY WITH A Branch MEAL metFORMIN 2019-0 Yes TAKE 2 Univer s 500 mg 9-08 TABLETS BY ity of tablet 00:00: MOUTH [place] 00 TWICE A Medical DAY WITH A Branch MEAL metFORMIN 2019-0 Yes TAKE 2 Univer s 500 mg 9-08 TABLETS BY ity of tablet 00:00: MOUTH 00 TWICE A Medical DAY WITH A Branch MEAL metFORMIN 2019-0 Yes TAKE 2 Univer s 500 mg 9-08 TABLETS BY ity of tablet 00:00: MOUTH 00 TWICE A Medical DAY WITH A Branch MEAL metFORMIN 2019-0 Yes TAKE 2 Univer s 500 mg 9-08 TABLETS BY ity of tablet 00:00: MOUTH 00 TWICE A Medical DAY WITH A Branch MEAL metFORMIN 2019-0 Yes TAKE 2 Univer s 500 mg 9-08 TABLETS BY ity of tablet 00:00: MOUTH 00 TWICE A Medical DAY WITH A Branch MEAL metFORMIN 2019-0 Yes TAKE 2 Univer s 500 mg 9-08 TABLETS BY ity of tablet 00:00: MOUTH 00 TWICE A Medical DAY WITH A Branch MEAL metFORMIN 2019-0 Yes TAKE 2 Univer s 500 mg 9-08 TABLETS BY ity of tablet 00:00: MOUTH 00 TWICE A Medical DAY WITH A Branch MEAL metFORMIN 2019-0 Yes TAKE 2 Univer s 500 mg 9-08 TABLETS BY ity of tablet 00:00: MOUTH 00 TWICE A Medical DAY WITH A Branch MEAL metFORMIN 2019-0 Yes TAKE 2 Univer s 500 mg 9-08 TABLETS BY ity of tablet 00:00: MOUTH 00 TWICE A Medical DAY WITH A Branch MEAL gabapentin 2019-0 Yes TAKE 1 Unive rs 300 mg 8-14 CAPSULE BY ity of capsule 00:00: MOUTH 00 THREE Medical TIMES A Branch DAY JANUVIA 100 2019-0 Yes 100mg Take 100 U nivers mg tablet 8-14 mg by ity of 00:00: mouth [place] 00 daily. Medical Branch gabapentin 2019-0 Yes TAKE 1 Unive rs 300 mg 8-14 CAPSULE BY ity of capsule 00:00: MOUTH 00 THREE Medical TIMES A Branch DAY JANUVIA 100 2019-0 Yes 100mg Take 100 U nivers mg tablet 8-14 mg by ity of 00:00: mouth [place] 00 daily. Medical Branch gabapentin 2019-0 Yes TAKE 1 Unive rs 300 mg 8-14 CAPSULE BY ity of capsule 00:00: MOUTH 00 THREE Medical TIMES A Branch DAY JANUVIA 100 2019-0 Yes 100mg Take 100 U nivers mg tablet 8-14 mg by ity of 00:00: mouth [place] 00 daily. Medical Branch gabapentin 2019-0 Yes TAKE 1 Unive rs 300 mg 8-14 CAPSULE BY ity of capsule 00:00: MOUTH [place] 00 THREE Medical TIMES A Branch DAY JANUVIA 100 2019-0 Yes 100mg Take 100 U nivers mg tablet 8-14 mg by ity of 00:00: mouth [place] 00 daily. Medical Branch gabapentin 2019-0 Yes TAKE 1 Unive rs 300 mg 8-14 CAPSULE BY ity of capsule 00:00: MOUTH [place] 00 THREE Medical TIMES A Branch DAY JANUVIA 100 2019-0 Yes 100mg Take 100 U nivers mg tablet 8-14 mg by ity of 00:00: mouth [place] 00 daily. Medical Branch gabapentin 2019-0 Yes TAKE 1 Unive rs 300 mg 8-14 CAPSULE BY ity of capsule 00:00: MOUTH [place] 00 THREE Medical TIMES A Branch DAY JANUVIA 100 2019-0 Yes 100mg Take 100 U nivers mg tablet 8-14 mg by ity of 00:00: mouth [place] 00 daily. Medical Branch gabapentin 2019-0 Yes TAKE 1 Unive rs 300 mg 8-14 CAPSULE BY ity of capsule 00:00: MOUTH [place] 00 THREE Medical TIMES A Branch DAY JANUVIA 100 2019-0 Yes 100mg Take 100 U nivers mg tablet 8-14 mg by ity of 00:00: mouth [place] 00 daily. Medical Branch gabapentin 2019-0 Yes TAKE 1 Unive rs 300 mg 8-14 CAPSULE BY ity of capsule 00:00: MOUTH [place] 00 THREE Medical TIMES A Branch DAY JANUVIA 100 2019-0 Yes 100mg Take 100 U nivers mg tablet 8-14 mg by ity of 00:00: mouth [place] 00 daily. Medical Branch gabapentin 2019-0 Yes TAKE 1 Unive rs 300 mg 8-14 CAPSULE BY ity of capsule 00:00: MOUTH [place] 00 THREE Medical TIMES A Branch DAY JANUVIA 100 2019-0 Yes 100mg Take 100 U nivers mg tablet 8-14 mg by ity of 00:00: mouth [place] 00 daily. Medical Branch gabapentin 2019-0 Yes TAKE 1 Unive rs 300 mg 8-14 CAPSULE BY ity of capsule 00:00: MOUTH [place] 00 THREE Medical TIMES A Branch DAY JANUVIA 100 2019-0 Yes 100mg Take 100 U nivers mg tablet 8-14 mg by ity of 00:00: mouth [place] 00 daily. Medical Branch gabapentin Yes TAKE 1 [facility] (NEURONTIN) 8-[address] 300 mg 00:00: MOUTH [facility] capsule 00 THREE l TIMES A DAY SITagliptin Yes 100mg Take 100 M ethodi (Januvia) 8-[address] 100 MG 00:00: mouth. [facility] tablet 00 l tamsulosin Yes TAKE 1 Metho di (FLOMAX) 8-[address] 0.4 mg 00:00: MOUTH [facility] capsule 00 EVERY DAY l omeprazole Yes 1 CAPSULES U nivers 20 mg 5-30 ONCE A DAY ity of capsule 00:00: ORALLY Medical Branch DALIRESP Yes 1{tbl} Take 1 Unive rs 250 mcg Tab 5-30 tablet by ity of 00:00: mouth 00 daily. Medical Branch omeprazole Yes 1 CAPSULES U nivers 20 mg 5-30 ONCE A DAY ity of capsule 00:00: [place] [facility] Branch DALIRESP Yes 1{tbl} Take 1 Unive rs 250 mcg Tab 5-30 tablet by ity of 00:00: mouth 00 daily. Medical Branch omeprazole Yes 1 CAPSULES U nivers 20 mg 5-30 ONCE A DAY ity of capsule 00:00: [place] [facility] Branch DALIRESP Yes 1{tbl} Take 1 Unive rs 250 mcg Tab 5-30 tablet by ity of 00:00: mouth 00 daily. Medical Branch omeprazole 2018- Yes 1 CAPSULES U nivers 20 mg 5-30 ONCE A DAY ity of capsule 00:00: [place] [facility] Branch DALIRESP Yes 1{tbl} Take 1 Unive rs 250 mcg Tab 5-30 tablet by ity of 00:00: mouth 00 daily. Medical Branch omeprazole Yes 1 CAPSULES U nivers 20 mg 5-30 ONCE A DAY ity of capsule 00:00: [place] [facility] Branch DALIRESP Yes 1{tbl} Take 1 Unive rs 250 mcg Tab 5-30 tablet by ity of 00:00: mouth 00 daily. Medical Branch omeprazole Yes 1 CAPSULES U nivers 20 mg 5-30 ONCE A DAY ity of capsule 00:00: ORALLY 90 Medical [facility] Yes 1{tbl} Take 1 Unive rs 250 mcg Tab 5-30 tablet by ity of 00:00: mouth 00 daily. Medical Branch omeprazole Yes 1 CAPSULES U nivers 20 mg 5-30 ONCE A DAY ity of capsule 00:00: ORALLY Medical Branch [facility] Yes 1{tbl} Take 1 Unive rs 250 mcg Tab 5-30 tablet by ity of 00:00: mouth 00 daily. Medical Branch omeprazole Yes 1 CAPSULES U nivers 20 mg 5-30 ONCE A DAY ity of capsule 00:00: ORALLY [facility] Yes 1{tbl} Take 1 Unive rs 250 mcg Tab 5-30 tablet by ity of 00:00: mouth 00 daily. Medical Branch omeprazole Yes 1 CAPSULES U nivers 20 mg 5-30 ONCE A DAY ity of capsule 00:00: ORALLY [facility] Yes 1{tbl} Take 1 Unive rs 250 mcg Tab 5-30 tablet by ity of 00:00: mouth 00 daily. Medical Branch omeprazole Yes 1 CAPSULES U nivers 20 mg 5-30 ONCE A DAY ity of capsule 00:00: ORALLY [facility] Yes 1{tbl} Take 1 Unive rs 250 mcg Tab 5-30 tablet by ity of 00:00: mouth 00 daily. Medical Branch omeprazole Yes 1 CAPSULES M ethodi (PriLOSEC) 5-[address] 20 MG 00:00: ORALLY [facility] capsule 00 DAYS l gabapentin 2017-03 Yes 300mg Q.25D Take [address] (NEURONTIN) 0-14 [facility] 300 MG 13:12: mouth 4 Medical capsule 35 (four) Center times daily . losartan 2017-03 Yes 25mg QD Take [address] [facility] (COZAAR) 25 0-14 by mouth Luke s MG tablet 13:12: daily. Medica l 35 Center glipiZIDE 2017-03 Yes 5mg Take [address] [facility] (GLUCOTROL) 0-14 by mouth 2 Sarah kes 5 MG tablet 13:12: (two) Medic al 35 times Center daily before meals. atorvastati 2017-03 Yes 10mg QD Take [address] n (LIPITOR) 0-14 by mouth Luke s 10 MG 13:12: nightly. Medical tablet 35 Center meloxicam 0 Yes . Methodi (MOBIC) 7.5 8-22 st mg tablet 00:00: Hospita 00 l metFORMIN Yes TAKE 2 Method i (GLUCOPHAGE 8-[address] ) 500 mg 00:00: MOUTH Hospita tablet 00 TWICE A l DAY WITH A MEAL meloxicam Yes . [facility] (MOBIC) 7.5 8-22 [facility] MG tablet 00:00: Medical 00 Center metFORMIN Yes 1000mg 1,[address] (GLUCOPHAGE 8-22 (two) [facility] ) 500 MG 00:00: times Medical tablet 00 daily with Center breakfast and dinner . citalopram Yes 20mg Take 20 mg M ethodi (CeleXA) 20 7-[address] MG tablet 00:00: Hospita 00 l citalopram Yes Q.5D 2 (two) [facility] (CELEXA) 20 7-13 times [facility] MG tablet 00:00: daily . Medic al 00 Center albuterol Yes 2.5mg Inhale 2.5 M ethodi (ACCUNEB) 7-[address] 2.5 mg /3 00:00: Hospita mL (0.083 00 l %) nebulizer solution albuterol Yes every 6 [facility] (PROVENTIL) 7-01 (six) [facility] 2.5 mg /3 00:00: hours as Medi jovita mL (0.083 00 needed . Center %) nebulizer solution umeclidiniu Yes 1{puff} 1 puff. Methodi m-vilantero 08-18 st L (Anoro 00:00: Hospita Ellipta) 00 l 62.5-25 mcg/actuati on blister with device ANORO Yes 1{puff} QD [address] ELLIPTA 08-18 daily . [facility] 62.5-25 00:00: Medical mcg/actuati 00 Center on DsDv ipratropium Yes 2{puff} Inhale 2 Methodi -albuteroL 5-[address] (COMBIVENT 00:00: Hospita RESPIMAT) 00 l 20-100 mcg/actuati on mist inhaler albuterol-i Yes 2{puff} Inhale [address] pratropium 5-08 puffs by [facility] (COMBIVENT 00:00: mouth via Me dical RESPIMAT) 00 inhaler Center 20-100 every 6 mcg/actuati (six) on Mist hours as inhaler needed for Wheezing. Immunizations Ordered Immunization Filled Immunization Date Status Commen ts Source Name Name Influenza High Dose 2021-11-21 Completed Unive rsity of 00:00:00 [facility] Influenza High Dose 2021-11-21 Completed Unive rsity of 00:00:00 [facility] Influenza High Dose 2021-11-21 Completed Unive rsity of 00:00:00 [facility] Influenza High Dose 2021-11-21 Completed Unive rsity of 00:00:00 [facility] Influenza High Dose 2021-11-21 Completed Unive rsity of 00:00:00 [facility] Influenza High Dose 2021-11-21 Completed Unive rsity of 00:00:00 [facility] Influenza High Dose 2021-11-21 Completed Unive rsity of 00:00:00 [facility] Influenza High Dose 2021-11-21 Completed Unive rsity of 00:00:00 [facility] Pneumococcal 2017-10-19 Completed University o f Polysaccharide, 00:00:00 [place] [facility] ical PPSV23 (PNEUMOVAX) Branch Pneumococcal 2017-10-19 Completed University o f Polysaccharide, 00:00:00 [place] [facility] ical PPSV23 (PNEUMOVAX) Branch Pneumococcal 2017-10-19 Completed University o f Polysaccharide, 00:00:00 [place] [facility] ical PPSV23 (PNEUMOVAX) Branch Pneumococcal 2017-10-19 Completed University o f Polysaccharide, 00:00:00 [place] [facility] ical PPSV23 (PNEUMOVAX) Branch Pneumococcal 2017-10-19 Completed University o f Polysaccharide, 00:00:00 [place] [facility] ical PPSV23 (PNEUMOVAX) Branch Pneumococcal 2017-10-19 Completed University o f Polysaccharide, 00:00:00 [place] [facility] ical PPSV23 (PNEUMOVAX) Branch Pneumococcal 2017-10-19 Completed University o f Polysaccharide, 00:00:00 [place] [facility] ical PPSV23 (PNEUMOVAX) Branch Pneumococcal 2017-10-19 Completed University o f Polysaccharide, 00:00:00 [place] [facility] ical PPSV23 (PNEUMOVAX) Branch Pneumococcal 2017-10-19 Completed University o f Polysaccharide, 00:00:00 [place] [facility] ical PPSV23 (PNEUMOVAX) Branch Pneumococcal 2017-10-19 Completed University o f Polysaccharide, 00:00:00 [place] [facility] ical PPSV23 (PNEUMOVAX) Branch Pneumococcal 2017-10-[address] [facility] Polysaccharide 00:00:00 Medical Ce nter (Pneumovax) Vital Signs Vital Name Observation Time Observation Value Comments Source Systolic blood 2022-03-16 17:44:00 116 mm[Hg] [facility]iver [facility] Diastolic blood 2022-03-16 17:44:00 75 mm[Hg] Unive rsity [facility] Heart rate 2022-03-16 17:44:00 65 /min [facility] Body temperature 2022-03-16 17:44:00 36 Janette [facility] Respiratory rate 2022-03-16 17:44:00 18 /min [facility] Oxygen saturation in 2022-03-16 17:44:00 94 /min [facility] Arterial blood by [facility] Pulse oximetry [place] Body weight 2022-03-16 11:10:00 79.924 kg [facility] BMI 2022-03-16 11:10:00 28.44 kg/m2 [facility] Body height 2022-03-16 04:03:00 167.6 cm [facility] Systolic blood 2021-12-31 15:15:00 130 mm[Hg] Univer sity [facility] Diastolic blood 2021-12-31 15:15:00 74 mm[Hg] Unive rsity [facility] Heart rate 2021-12-31 15:15:00 84 /min [facility] Respiratory rate 2021-12-31 15:15:00 19 /min [facility] Body height 2021-12-31 15:15:00 167.6 cm [facility] Body weight 2021-12-31 15:15:00 81.693 kg [facility] BMI 2021-12-31 15:15:00 29.07 kg/m2 [facility] Oxygen saturation in 2021-12-31 15:15:00 93 /min [facility] blood by [facility] Pulse oximetry Branch Procedures Procedure Date / Time Performing Clinician Source Performed POCT GLUCOSE (AUTOMATED) 2022-03-16 17:47:00 Suzan Hogue [facility] PHOSPHORUS 2022-03-16 11:21:00 Suzan Hogue [facility] MAGNESIUM 2022-03-16 11:21:00 Aicha goran [facility] TROPONIN I 2022-03-16 11:21:00 Aicha goran [facility] COMP. METABOLIC PANEL 2022-03-16 11:21:00 Suzan Hogue [facility] ([id number] CBC WITH DIFF 2022-03-16 11:21:00 uSzan Hogue [facility] N-TERMINAL PRO-BNP 2022-03-16 11:21:00 Suzan Hogue [facility] POCT GLUCOSE (AUTOMATED) 2022-03-16 04:17:00 Suzan Hogue [facility] XR CHEST 1 VW 2022-03-16 00:45:00 Epi Landry [facility] URINALYSIS 2022-03-16 00:43:00 Epi Landry [facility] CT STROKE ANGIOGRAM HEAD 2022-03-16 00:42:00 Epi Landry [facility] CT STROKE ANGIOGRAM NECK 2022-03-16 00:42:00 Epi Landry [facility] CT HEAD WO CONTRAST 2022-03-16 00:37:00 Epi Landry [facility] MAGNESIUM 2022-03-15 23:47:00 Epi Landry [facility] TROPONIN I 2022-03-15 23:47:00 Epi Landry [place] o f [facility] COMP. METABOLIC PANEL 2022-03-15 23:47:00 Epi Landry [facility] ([id number]) Medical Branch CBC WITH DIFF 2022-03-15 23:47:00 Epi Landry Hilda [place] o [facility] N-TERMINAL PRO-BNP 2022-03-15 23:47:00 Epi Landry [facility] CONSENT/REFUSAL FOR 2022-03-15 22:57:47 Doctor Unassigned, No [facility] DIAGNOSIS AND TREATMENT Name Medical Branch DME/SUPPLY JUSTIFICATION 2022-02-06 06:01:00 Doctor Unassigned, No [facility] Name [facility] Branch DME/SUPPLY JUSTIFICATION 2021-12-12 05:01:00 Doctor Unassigned, No [facility] Branch [id number] 2020-02-20 00:00:00 GREG [facility] Plan of Care Planned Activity Planned Date Details Comments Source Future Scheduled 2022-03-06 COVID-19 VACCINE (#1) Me [facility] Hospital Test 17:18:09 [code = COVID-19 VACCINE (#1)] Future Scheduled 2022-03-06 Hepatitis C screening [facility] Hospital Test 17:18:09 (procedure) [code = 557167807] Future Scheduled 2022-03-06 COLONOSCOPY SCREENING [facility] Hospital Test 17:18:09 [code = COLONOSCOPY SCREENING] Future Scheduled 2022-03-06 SHINGLES VACCINES (1 [facility] Hospital Test 17:18:09 of 2) [code = SHINGLES VACCINES (1 of 2)] Future Scheduled 2022-03-06 65+ [facility]OCOCCAL [facility] Test 17:18:09 VACCINE (2 - PCV) [code = 65+ PNEUMOCOCCAL VACCINE (2 - PCV)] Future Scheduled 2022-03-06 INFLUENZA VACCINE Method ist Hospital Test 17:18:09 [code = INFLUENZA VACCINE] Future Scheduled 2021-11-21 INFLUENZA VACCINE (#1[facility] 00:[facility]00 [code = INFLUENZA Medical Ce nter VACCINE (#1)] Future Scheduled 2021-03-[address] [facility] Test 00:00:00 (12+) [code = Medical Center DEPRESSION SCREENING (12+)] Future Scheduled 2021-03-23 FALLS RISK SCREENING [facility] Test 00:00:00 [code = FALLS RISK Medical C enter SCREENING] Future Scheduled 2020-05-[address] [facility] Test 00:00:00 Counseling [facility] Medical Cente r Screening (12+) [code = Tobacco Cessation Counseling and Screening (12+)] Future Scheduled 2018-10-19 PNEUMOCOCCAL 65+ Y[facility] Test 00:00:00 (2 - PCV) [code = Medical Ce nter PNEUMOCOCCAL 65+ YRS (2 - PCV)] Future Scheduled 2018-03-[address] [facility] Test 00:00:00 WELLNESS (YEAR 2 or Medical Center FIRST YEAR if no IPPE) [code = MEDICARE ANNUAL WELLNESS (YEAR 2 or FIRST YEAR if no IPPE)] Future Scheduled 1995-08-16 SHINGLES VACCINES ([address] [facility] Test 00:00:00 of 2) [code = SHINGLES Medic al Center VACCINES (1 of 2)] Future Scheduled 1964 DTAP/TDAP/TD VACCINES [facility] Test 00:00:00 (1 - Tdap) [code = Medical C enter DTAP/TDAP/TD VACCINES (1 - Tdap)] Future Scheduled 1963-08-16 HEPATITIS C SCREENING [facility] Test 00:00:00 [code = HEPATITIS C Medical Center SCREENING] Future Scheduled 1946-02-15 COVID-19 VACCINE (#1) [facility] Test 00:00:00 [code = COVID-[address] VACCINE (#1)] Encounters Start End Encounter Admission Attending Care Care Encounter Source Date/Time Date/Time Type Type Clinicians Facility Department ID 2022-03-22 Preadmit nullFlavo [facility] [id number] Me moria 18:54:36 chas Soto 2021-01-21 Emergency [facility] [id number] [facility]29 Preadmit nullFlavo [facility] [id number] Me moria 17:03:06 chas Soto 2020-02-21 Inpatient Watson Maciel [facility] MEDI.01 [id number] [facility] 23:01:00 57 Pita rodrigues [facility] 2020-02-20 Outpatient SANGEETA NÚÑEZ MHBL [id number] MH BL 10:36:28 EDWINA 2022-04-03 2022-04-03 Outpatient R EMRE NÚÑEZ [facility] 10 [id number] Univers 10:00:00 10:00:00 EMRE NÚÑEZ i ty of [facility] 2022-03-18 2022-03-18 Transition TRISH Deleon [id number] Univers 00:00:00 00:00:00 of Care Deven [place] HERMAN [id number] ity of [id number] [id number] [facility] 403 Branch 2022-03-15 2022-03-16 Outpatient X ОЛЕГ [facility] [id number] Univers 17:05:00 12:42:00 MERISSA ity of [facility] 2022-03-15 2022-03-16 Emergency Epi Landry [facility] 1.2.840. 114 [id number] Univers 17:05:00 12:42:00 Suzan Hogue [id number] ity of [place] 4.2.7.2.686 [facility] [id number] [facility] 081 Branch 2022-02-06 2022-02-06 Telephone Wilton [facility] [id number] Univers 00:00:00 00:00:00 Emre RAMIREZ [id number] i ty [place] [id number] [facility] 085 [facility] 2022-02-06 2022-02-06 Orders Doctor PAULINE 1.2.840.114 [id number] Univers 00:00:00 00:00:00 Only Unassigned, JUAN JOSE [id number] ity of [place] [facility] 4.2.7.2.686 Mohinder as [id number] [facility] 009 Branch 2021-12-31 2021-12-31 Outpatient R EMRE NÚÑEZ [facility] 10 [id number] Univers 10:00:00 10:23:42 EMRE NÚÑEZ i ty of [facility] 2021-12-312021-12-31 Office [facility] 1.2.840.114 [id number] Univers 10:00:00 10:23:42 Visit Emre RAMIREZ [id number] i ty [place] [id number] [facility] 085 [facility] 2021-12-12 2021-12-12 Orders Doctor PAULINE 1.2.840.114 [id number] Univers 00:00:00 00:00:00 Only Unassigned, JUAN JOSE [id number] ity of [place] [facility] 4.2.7.2.686 Mohinder as [id number] [address] 2021-11-08 2021-11-08 Telephone [facility] [id number] Univers 00:00:00 00:00:00 Teresa C [place] [id number] i ty [place] [id number] [facility] 296 [facility] 2021-11-04 2021-11-04 Telephone Wilton [facility] [id number] Univers 00:00:00 00:00:00 Emre RAMIREZ [id number] i ty [place] [id number] [facility] 085 [facility] 2021-10-22 2021-10-22 Outpatient R EMRE NÚÑEZ [facility] 10 [id number] Univers 11:00:00 11:00:00 EMRE NÚÑEZ i ty of [facility] 2021-10-16 2021-10-16 Outpatient R EMRE NÚÑEZ [facility] 10 [id number] Univers 09:30:00 09:30:00 EMRE NÚÑEZ i ty of [facility] 2021-10-02 2021-10-02 Telephone [facility] [id number] Univers 00:00:00 00:00:00 Tereas C [place] [id number] i ty [place] [id number] [facility] 296 [facility] 2021-09-13 2021-09-13 Case [facility] 1.2.840.114 [id number] Univers 00:00:00 00:00:00 Management Emre RAMIREZ [id number] ity of [facility] [id number] [id number] [facility] [address] [place] [address] 2021-09-08 2021-09-08 Emergency X [facility] ERT [id number] Univers 18:05:00 19:51:00 CASSIE ity [facility] 2021-09-08 2021-09-08 Emergency [facility] [id number] Univers 18:05:00 19:51:00 Cassiesaúl RAMIREZ 350.1.13.10 i ty [place] [id number] [address] 2021-09-08 2021-09-08 Emergency X [facility] ERT [id number] Univers 18:05:00 19:51:00 [facility] 2021-09-04 2021-09-04 Telephone [facility] [id number] Univers 00:00:00 00:00:00 Teresa RAMIREZ 350.1.13.10 i ty [place] [id number] [address] 2021-09-04 2021-09-04 Telephone [facility] [id number] Univers 00:00:00 00:00:00 Emre RAMIREZ 350.1.13.10 i ty of [place] [id number] [address] 2021-08-28 2021-08-28 Letter Testing, UNIVERSIT 1.2.840.114 [id number] Univers 00:00:00 00:00:00 (Out) [facility] 350.1.13.10 i ty of Pulmonary CL[place]ICS [place].2.[place] Function [id number] Med ical 083 Branch 2021-08-26 2021-08-26 Transition TRISH Anders 1.2.840.114 [id number] Univers 00:00:00 00:00:00 of Care Aline CASTROY 350.1.13.10 i ty of [place] [id number] [facility] 403 Branch 2021-08-22 2021-08-23 Outpatient X ОЛЕГ [facility] [id number] Univers 10:43:00 14:33:00 MERISSA ity of [facility] 2021-08-22 2021-08-23 Emergency Cherelle Trista G [facility] 1.2.840 .114 [id number] Univers 10:43:00 14:33:00 Merissa [place] 350.1.13.10 ity of [place].2.[place] [id number] [facility] 081 Branch 2021-08-12 2021-08-12 Outpatient R EMRE NÚÑEZ [facility] 10 [id number] Univers 09:30:00 10:37:50 EMRE NÚÑEZ i ty of [facility] 2021-08-12 2021-08-12 Office Wilton [facility] 1.2.840.114 [id number] Univers 09:30:00 10:37:50 Visit Emre RAMIREZ 350.1.13.10 i ty of [place] [id number] Pa dical NAL 085 Branch [facility] 2021-08-12 2021-08-12 Orders Doctor PAULINE 1.2.840.114 [id number] Univers 00:00:00 00:00:00 Only Unassigned, JUAN JOSE 350.1.13.10 ity of [place] [facility] 4.2.7.2.686 Mohinder as [id number] [facility] 009 Branch 2021-08-08 2021-08-08 Outpatient R EMRE NÚÑEZ [facility] 10 [id number] Univers 11:00:00 11:00:00 EMRE NÚÑEZ i ty of [facility] 2021-06-21 2021-06-21 Transition JAQUELINE DeleonJoe 1.2.840.114 [id number] Univers 00:00:00 00:00:00 of Care Deven [place] 350.1.13.10 [place]2.[place] [id number] [facility] 403 Branch 2021-06-16 2021-06-20 Inpatient X ANTONETTE [facility] MYLES [id number] Univers 16:31:00 15:25:00 GRETCHEN ity of [facility] 2021-06-16 2021-06-20 [facility] 1.2.840. 114 [id number] Univers 16:31:00 15:25:00 Encounter Merissa [place] 350.1.13.10 ity of Gretchen [place] 4.2.7.2.686 [facility] [id number] [facility] 081 Branch 2021-04-25 2021-04-25 Outpatient R EMRE NÚÑEZ [facility] 10 [id number] Univers 09:30:00 09:30:00 EMRE NÚÑEZ i ty of [facility] 2021-04-24 2021-04-24 Telephone Wilton [facility] [id number] Univers 00:00:00 00:00:00 Emre RAMIREZ 350.1.13.10 i ty of [facility] 4.2.7.2.[place] [id number] [address] 2021-04-22 2021-04-22 Refill Wilton [facility] 1.2.840.114 [id number] Univers 00:00:00 00:00:00 Emre RAMIREZ 350.1.13.10 i ty of [place] [id number] [address] 2021-03-27 2021-03-27 Telephone URI Valenzuela 1.2.840.114 [id number] Univers 00:00:00 00:00:00 [facility] 350.1.13.10 ity of [place] 4[place]2.7.[place] [id number] [facility] 084 [place] 2021-03-11 2021-03-11 Outpatient R JERAMIE [facility] [id number] Univers 09:15:00 09:15:00 KELBY mary [facility] 2021-03-11 2021-03-11 Outpatient R JERAMIE [facility] [id number] Univers 09:15:00 08:26:12 KELBY mary [facility] 2021-03-11 2021-03-11 Outpatient R JERAMIE [facility] [id number] Univers 09:15:00 08:26:12 KELBY trevino [facility] 2021-03-05 2021-03-[address] [facility] UNIVERSIT 1.2.840.114 [id number] Univers 13:00:00 14:40:44 Visit [facility] 350.1. 13.10 ity of [place] [id number] [facility] [address] [place] 2021-03-05 2021-03-[address] [facility] UNIVERSIT 1.2.840.114 [id number] Univers 11:51:20 12:06:20 Visit Kelby Valenzuela HEALTH 350.1. 13.10 ity of [place] [id number] [facility] [address] [place] 2021-03-05 2021-03-05 Office Fellow, Pulmonary UNIVERSIT 1.2.84 0.114 [id number] Univers 11:03:34 11:33:34 Visit Kelby Valenzuela HEALTH 350.1. 13.10 ity of CL[place] [id number] [place] 8[address] 2021-03-05 2021-03-05 Outpatient R JERAMIE [facility] [id number] Univers 10:30:00 10:30:00 KELBY trevino [facility] 2021-03-05 2021-03-05 Outpatient R JERAMIE [facility] [id number] Univers 10:30:00 10:30:00 [facility] 2021-03-05 2021-03-05 Outpatient R JERAMIE [facility] [id number] Univers 10:30:00 10:30:00 [facility] 2021-03-05 2021-03-05 Outpatient R JERAMIE [facility] [id number] Univers 10:30:00 10:30:00 [facility] iteric o tyra [facility] 2021-02-26 2021-02-26 Transition TRISH Deleon 1.2.840.114 [id number] Univers 00:00:00 00:00:00 of Care Deven [place] 350.1.13.10 ity [facility] 4.2.7.2.686 [place] [id number] [address] 2021-02-17 2021-02-24 Inpatient X [facility] [id number] Univers 10:23:00 16:50:00 [facility] 2021-02-17 2021-02-24 Hospital Serena Alexandra 1.2.840. 114 [id number] Univers 10:23:00 16:50:00 Encounter Mohan [place] 350.1.13.10 ity of [facility] 4.2.7.2.686 [facility] Kelby [facility] [phone] [id number] Medical Ze [place] [address] Branch 2021-02-17 2021-02-24 [facility] [id number] Univers 10:23:00 16:50:00 [facility] 2021-02-17 2021-02-24 [facility] [id number] Univers 10:23:00 16:50:00 [facility] 2020-10-29 2020-10-29 Emergency [facility] [id number] Univers 17:15:00 21:28:00 Mohan Ramirez 350.1.13.10 i ty of [place]2.[place] [id number] Medi [facility] 084 Branch 2020-10-29 2020-10-29 Emergency X TRE, [facility] ERT [id number] Univers 17:15:00 21:28:00 MOHAN seth [facility] 2020-08-28 2020-08-29 Emergency NUSZEN, [facility] [id number] [place] 00:00:00 00:00:00 STONE [address] 2020-05-20 2020-05-20 Emergency E LANCE, BL [facility]BL [id number] [facility]BL 15:55:00 19:50:00 SHIN 2020-02-21 2020-02-21 Outpatient LewisWatson [facility] LABO G00 [id number] [facility] 08:34:00 08:34:00 55 [facility] 2020-01-16 2020-01-16 Outpatient WILTON BL [facility]BL [id number] MHBL 08:00:00 23:59:00 EDWINA 2019-12-05 2019-12-05 [facility] [id number] Univers 00:00:00 00:00:00 [facility] [id number] it y of Surgical [id number] Mohinder as Specialti [id number] [facility] es 198 [facility] 2019-12-05 2019-12-05 Rosibel [facility] 1.2.840.114 [id number] 00:00:00 00:00:00 [facility] 350.1.13.10 Surgical 4.2.7.2.686 Specialti [id number] es 198 [place] 2019-11-14 2019-11-14 Outpatient R JOSÉ MIGUEL [facility] [id number] Univers 10:00:00 10:00:00 SENDIL [facility] 2019-10-10 2019-10-10 Rosibel [facility] 1.2.840.114 [id number] Univers 00:00:00 00:00:00 [facility] 350.1.13.10 it y of Surgical 4.2.7.2.686 Mohinder as Specialti [phone] Me dical es 198 [facility] 2019-10-10 2019-10-10 Refill [facility] 1.2.840.114 [id number] 00:00:00 00:00:00 [facility] 350.1.13.10 Surgical 4.2.7.2.686 Specialti [id number] es 198 [place] 2019-07-29 2019-08-03 Office [facility] 1.2.840.114 [id number] Univers 08:29:01 14:21:19 Visit [facility] 350.1.13.10 it y of Surgical 4.2.7.2.686 Mohinder as Specialti [id number] Me dical es 198 [facility] 2019-07-29 2019-08-03 Office [facility] 1.2.840.114 [id number] 08:29:01 14:21:19 Visit [facility] 350.1.13.10 Surgical 4.2.7.2.686 Specialti [id number] es [address] [place] [address] 2019-08-01 2019-08-01 Office [facility] 1.2.840.114 [id number] Univers 08:43:52 12:01:20 Visit Kavon Malloy [place] 350.1.13.10 ity of [place].2.[place] [id number] Me dical nal 059 [facility] 2019-08-01 2019-08-01 Outpatient [facility] [id number] Univers 11:15:00 11:15:00 SENDIL ity [facility] 2019-07-29 2019-07-29 Outpatient [facility] [id number] Univers 08:43:48 23:59:00 MOOSE ity [facility] 2019-07-29 2019-07-29 [facility] 1.2.840.114 [id number] Univers 08:43:00 23:59:00 Encounter [facility] 350.1.13.10 ity of Surgical 4.2.7.2.686 Mohinder as Specialti [id number] Pa dical es 809 [facility] 2019-05-30 2019-05-30 Emergency SLEH SLE [id number] -[id number] [facility] 09:46:00 09:46:00 [id number] 2019-05-02 2019-05-02 Refill [facility] 1.2.840.114 [id number] Univers 00:00:00 00:00:00 Moose Joseph [facility] 350.1.13.10 it y of Surgical 4.2.7.2.686 Mohinder as Specialti [id number] Pa dical es 198 [facility] 2019-04-05 2019-04-05 Office Aurora [facility] 1.2.840.114 [id number] Univers 08:29:29 08:48:30 Visit Moose Joseph [facility] 350.1.13.10 it y of Surgical 4.2.7.2.686 Mohinder as Specialti [id number] Pa dical es 198 [facility] 2018-12-04 2018-12-04 Urgent Oral Buenrostro [facility] 1.2.840.11 [id number] Univers 20:05:25 20:20:25 Care Unknown, [facility] 350.1.13.10 ity of Surgical 4.2.7.2.686 Mohinder as Specialti [id number] Pa dical es 370 [facility] 2018-11-26 2018-11-26 Office [facility] 1.2.494.167 [id number] Univers 09:29:03 10:18:08 Visit Karel Bettencourt [facility] 350.1.13.10 it y of Surgical 4.2.7.2.686 Mohinder as Specialti [id number] Pa dical es 198 [facility] 2018-11-12 2018-11-12 [facility] 1.2.840.114 [id number] Univers 09:28:49 23:59:00 Encounter Karel Bettencourt [facility] 350.1.13.10 ity of Surgical 4.2.7.2.686 Mohinder as Specialti [id number] Pa dical es 809 [facility] 2018-11-12 2018-11-12 Office [facility] 1.2.928.936 [id number] Univers 09:09:08 09:59:22 Visit Karel L [facility] 350.1.13.10 it y of Surgical 4.2.7.2.686 Mohinder as Specialti [id number] Pa dical es 198 [facility] 2018-11-03 2018-11-03 Orders Doctor PAULINE 1.2.840.114 [id number] Univers 00:00:00 00:00:00 Only Unassigned, JUAN JOSE 350.1.13.10 ity of [place] [facility] 4.2.7.2.686 Mohinder as [id number] [facility] [address] [place] 2013-05-06 2013-05-06 Outpatient nullFlavo KWSH 32589 Memoria 15:55:00 17:00:00 chas Soto 2013-05-06 2013-05-06 Outpatient nullFlavo KWSH 54975 Memoria 15:55:00 17:00:00 chas Soto Results Test Description Test Time Test Comments Results Result Comments Source POCT GLUCOSE (AUTOMATED) 2022-03-16 17:52:15 Test Item Value Reference Range Interpretation Comme nts POCT GLU (test code = 8996650213) 173 mg/dL 70-110 H Lab Interpretation (test code = 30521-0) Abnormal [facility] GLUCOSE (AUTOMATED)2022-03-16 04:20:04 Test Item Value Reference Range Interpretation Comments POCT GLU (test code = 4185622837) 83 mg/dL 70-110 Lab Interpretation (test code = Normal 16350-4) [facility] [id number] 00:24:32 Test Item Value Reference Interpretation Comments Range TROPONIN I (test 0.004 ng/mL See_Comment [Automated code = 9710592167) message] The system which generated this result transmitted reference range : <=0.034. The reference range was not used to interpret this result as normal/abnormal . MURRAY (test code = Reference (Normal) MURRAY) Range (defined by the 99th percentile reference limit): <= 0.034 ng/mL Note: Cardiac troponin begins to rise 3-4 hours after the onset of ischemia. Repeat in 4-6 hours if the sample was drawn within 3-4 hours of the onset of the symptom and found normal. Diagnosis of myocardial injury is made with acute changes in cTn concentrations with at least one serial sample above the 99th percentile upper reference limit (URL), taken together with the patient's clinical presentation. Biotin has been reported to cause a negative bias, interpret results relative to patient's use of biotin. Lab Interpretation Normal (test code = 00379-9) [facility]way[facility]-TERMINAL [id number] 00:21:11 Test Item Value Reference Range Interpretation Comments NT-proBNP (test code 161 pg/mL See_Comment [Autom ated = 6451696604) message] The system which generated this result transmitted reference range : <=450. The reference range was not used to interpret this result as normal/abnormal . MURRAY (test code = MURRAY) Biotin has been reported to cause a negative bias, interpret results relative to patient's use of biotin. Lab Interpretation Normal (test code = 52062-6) [facility]MAGN[facility]IUM2022-12-25 00:13:49 Test Item Value Reference Range Interpretation Comments MAGNESIUM (test code = 5851026820) 2.0 mg/dL 1.7-2.4 Lab Interpretation (test code = Normal 46858-8) [facility]wayCOMP. METABOLIC PANEL (33150)2022-03-16 00:13:29 Test Item Value Reference Range Interpretation Comments NA (test code = 139 mmol/L 135-145 3006213412) K (test code = 4.8 mmol/L 3.5-5.0 1011632604) CL (test code = 101 mmol/L 98-108 6056615696) CO2 TOTAL (test code = 28 mmol/L 23-31 4365317244) AGAP (test code = 2-16 2519162514) BUN (test code = 14 mg/dL 7-23 4915112627) GLUCOSE (test code = 142 mg/dL 70-110 H 0238409826) CREATININE (test code = 0.72 mg/dL 0.60-1.25 8926182716) TOTAL BILI (test code = 0.4 mg/dL 0.1-1.4 1603011027) CALCIUM (test code = 8.8 mg/dL 8.6-10.6 6760731945) T PROTEIN (test code = 7.0 g/dL 6.3-8.2 0753252231) ALBUMIN (test code = 4.2 g/dL 3.5-5.0 6148122280) ALK PHOS (test code = 74 U/L 34-122 7379796512) ALTv (test code = 14 U/L 5-50 1742-6) AST(SGOT) (test code = 23 U/L 13-40 8887373683) eGFR (test code = mL/min/1.73m2 5106039832) MURRAY (test code = MURRAY) Association of Glomerular Filtration Rate (GFR) and Staging of Kidney Disease* + --+ --+ ------+| GFR (mL/min/1.73 m2) ?| With Kidney Damage ?| ?Without Kidney Damage+ --------+ --------+ +| ?>90 ?| ?Stage one ?| ? Normal ?+ ---+ ---+ -------+| ?60-89 ?| ?Stage two ?| ? Decreased GFR ? + --+ --+ ------+| ?30-59 ?| ?Stage three ?| ? Stage three ? + --+ --+ ------+| ?15-29 ?| ?Stage four ? | ? Stage four ?+ ---+ ---+ -------+| ?<15 (or dialysis) ? ?| ?Stage five ? | ? Stage five ?+ ---+ ---+ -------+ *Each stage assumes the associated GFR level has been in effect for at least three months. ?Stages 1 to 5, with or without kidney disease, indicate chronic kidney disease. Notes: Determination of stages one and two (with eGFR >59mL/min/1.73 m2) requires estimation of kidney damage for at least three months as defined by structural or functional abnormalities of the kidney, manifested by either:Pathological abnormalities or Markers of kidney damage (including abnormalities in the composition of the blood or urine or abnormalities in imaging tests). Lab Interpretation Abnormal (test code = 33535-1) [facility] WITH [id number] 00:00:29 Test Item Value Reference Range Interpretation Comments WBC (test code = See_Comment [Automated message] 6690-2) The system [employer] generated this result transmitted ref erence range: 4.20 - 1 0.70 10*3/?L. The re ference range was not u sed to interpret this result as normal/abnor mal. RBC (test code = See_Comment [Automated message] 789-8) The system [employer] generated this result transmitted ref erence range: 4.26 - 5 .52 10*6/?L. The re ference range was not u sed to interpret this result as normal/abnor mal. HGB (test code = 14.9 g/dL 12.2-16.4 718-7) HCT (test code = 45.2 % 38.4-49.3 4544-3) MCV (test code = 86.6 fL 81.7-95.6 787-2) MCH (test code = 28.5 pg 26.1-32.7 785-6) MCHC (test code = 33.0 g/dL 31.2-35.0 786-4) RDW-SD (test code 44.8 fL 38.5-51.6 = 20924-7) RDW-CV (test code 14.0 % 12.1-15.4 = 788-0) PLT (test code = See_Comment [Automated message] 777-3) The system [employer] generated this result transmitted ref erence range: 150 - 32 8 10*3/?L. The re ference range was not u sed to interpret this result as normal/abnor mal. MPV (test code = 9.8 fL 9.8-13.0 61869-3) NRBC/100 WBC (test See_Comment [Automat ed message] code = 7755858965) The syste m which generated this result transmitted ref erence range: 0.0 - 10 .0 /100 WBCs. The refer ence range was not u sed to interpret this result as normal/abnor mal. NRBC x10^3 (test See_Comment [Automated message] code = 7506267504) The syste m which generated this result transmitted ref erence range: 10*3/?L. The reference range was not used to interpr et this result as normal/abnormal . GRAN MAT (NEUT) % 71.8 % (test code = 770-8) IMM GRAN % (test 0.10 % code = 1979193991) LYMPH % (test code 18.1 % = 736-9) MONO % (test code 6.6 % = 5905-5) EOS % (test code = 2.2 % 713-8) BASO % (test code 1.2 % = 706-2) GRAN MAT 5.20 10*3/uL 1.99-6.95 x10^3(ANC) (test code = 5493834338) IMM GRAN x10^3 0.00-0.06 (test code = 7042189342) LYMPH x10^3 (test 1.31 10*3/uL 1.09-3.23 code = 731-0) MONO x10^3 (test 0.48 10*3/uL 0.36-1.02 code = 742-7) EOS x10^3 (test 0.16 10*3/uL 0.06-0.53 code = 711-2) BASO x10^3 (test 0.09 10*3/uL 0.01-0.09 code = 704-7) [facility] [id number] 11:19:00 Test Item Value Reference Range Interpretation Comments GLUCOSE BEDSIDE TESTING (test code 217 mg/dL 70-110 H = GLUBED) GLUCOSE BEDSIDE [id number] 07:40:00 Test Item Value Reference Range Interpretation Comments GLUCOSE BEDSIDE TESTING (test code 113 mg/dL 70-110 H = GLUBED) CBC W/AUTO [id number] 06:30:00 Test Item Value Reference Range Interpretation [...] NO DIFF/SCN CRITERIA = MDIFF) BASIC METABOLIC [id number] 06:05:00 Test Item Value Reference Range Interpretation [...] CA) 8.5 MG/DL 8.5-10.1 N CBC W/AUTO [id number] 06:04:00 Test Item Value Reference Range Interpretation [...] code = DIFF/SCN CRITERIA MDIFF) GLUCOSE BEDSIDE [id number] 20:11:00 Test Item Value Reference Range Interpretation Comments GLUCOSE BEDSIDE TESTING (test code 248 mg/dL 70-110 H = GLUBED) GLUCOSE BEDSIDE [id number] 16:36:00 Test Item Value Reference Range Interpretation Comments GLUCOSE BEDSIDE TESTING (test code 296 mg/dL 70-110 H = GLUBED) GLUCOSE BEDSIDE [id number] 13:00:00 Test Item Value Reference Range Interpretation Comments GLUCOSE BEDSIDE TESTING (test code 275 mg/dL 70-110 H = GLUBED) GLUCOSE BEDSIDE [id number] 08:16:00 Test Item Value Reference Range Interpretation Comments GLUCOSE BEDSIDE TESTING (test code 149 mg/dL 70-110 H = GLUBED) GLUCOSE BEDSIDE [id number] 20:13:00 Test Item Value Reference Range Interpretation Comments GLUCOSE BEDSIDE TESTING (test code 201 mg/dL 70-110 H = GLUBED) GLUCOSE BEDSIDE [id number] 16:29:00 Test Item Value Reference Range Interpretation Comments GLUCOSE BEDSIDE TESTING (test code 222 mg/dL 70-110 H = GLUBED) GLUCOSE BEDSIDE [id number] 11:21:00 Test Item Value Reference Range Interpretation Comments GLUCOSE BEDSIDE TESTING (test code 222 mg/dL 70-110 H = GLUBED) GLUCOSE BEDSIDE [id number] 07:45:00 Test Item Value Reference Range Interpretation Comments GLUCOSE BEDSIDE TESTING (test code 187 mg/dL 70-110 H = GLUBED) GLUCOSE BEDSIDE [id number] 20:35:00 Test Item Value Reference Range Interpretation Comments GLUCOSE BEDSIDE TESTING (test code 225 mg/dL 70-110 H = GLUBED) GLUCOSE BEDSIDE [id number] 16:43:00 Test Item Value Reference Range Interpretation Comments GLUCOSE BEDSIDE TESTING (test code 237 mg/dL 70-110 H = GLUBED) GLUCOSE BEDSIDE [id number] 11:40:00 Test Item Value Reference Range Interpretation Comments GLUCOSE BEDSIDE TESTING (test code 218 mg/dL 70-110 H = GLUBED) GLUCOSE BEDSIDE [id number] 08:45:00 Test Item Value Reference Range Interpretation Comments GLUCOSE BEDSIDE TESTING (test code 219 mg/dL 70-110 H = GLUBED) GLUCOSE BEDSIDE [id number] 20:24:00 Test Item Value Reference Range Interpretation Comments GLUCOSE BEDSIDE TESTING (test code 124 mg/dL 70-110 H = GLUBED) ALPHA 1 [id number] 17:09:00 Test Item Value Reference Range Interpretation Comments ALPHA 1 ANTITRYPSIN 258 mg/dL 101-187 A Performe d At: DA (test code = SFXV5SRZ) [facility] Wenwuj[address]19 [facility] [address] [place], [place] [id number] h NILA CONTEH [phone] GLUCOSE BEDSIDE [id number] 16:45:00 Test Item Value Reference Range Interpretation Comments GLUCOSE BEDSIDE TESTING (test code 224 mg/dL 70-110 H = GLUBED) GLUCOSE BEDSIDE [id number] 14:15:00 Test Item Value Reference Range Interpretation Comments GLUCOSE BEDSIDE TESTING (test code 374 mg/dL 70-110 H = GLUBED) GLUCOSE BEDSIDE [id number] 11:13:00 Test Item Value Reference Range Interpretation Comments GLUCOSE BEDSIDE TESTING (test code 257 mg/dL 70-110 H = GLUBED) GLUCOSE BEDSIDE [id number] 07:30:00 Test Item Value Reference Range Interpretation Comments GLUCOSE BEDSIDE TESTING (test code 209 mg/dL 70-110 H = GLUBED) VANCOMYCIN [id number] 20:42:00 Test Item Value Reference Range Interpretation Comments VANCOMYCIN TROUGH (test code = 10.3 mcG/ML 10-20 N VANCT) GLUCOSE BEDSIDE [id number] 16:42:00 Test Item Value Reference Range Interpretation Comments GLUCOSE BEDSIDE TESTING (test code 190 mg/dL 70-110 H = GLUBED) GLUCOSE BEDSIDE [id number] 12:09:00 Test Item Value Reference Range Interpretation Comments GLUCOSE BEDSIDE TESTING (test code 187 mg/dL 70-110 H = GLUBED) GLUCOSE BEDSIDE [id number] 07:41:00 Test Item Value Reference Range Interpretation Comments GLUCOSE BEDSIDE TESTING (test code 159 mg/dL 70-110 H = GLUBED) Novel Coronavirus [id number] 07:25:00 Test Item Value Reference Range Interpretation Comments Novel Coronavirus Negative Negative Positive r esults are 2019 Inhouse (test indicativ e of the presence code = EGRPI88LH) ofSARS-CoV -2 RNA, clinical correlation wit h [...] for the identification of SARS-CoV-2 RNA usingthe [employer] M2000 Sy stem under the FDA Emergen cy UseAuthorizatio n. The testing is perf ormed by alexy rodrigues in the procedures for the [employer] M2000 molecular diagnostic SARS-CoV-2 assa y in vitro. Novel Coronavirus [id number] 07:24:00 Test Item Value Reference Range Interpretation Comments Novel Coronavirus Negative Negative Positive r esults are 2019 Inhouse (test indicativ e of the presence code = LNYOH05SB) ofSARS-CoV -2 RNA, clinical correlation wit h [...] n. The testing is perf ormed by alexy rodrigues in the procedures for the [employer]ell M2000 molecular diagnostic SARS-CoV-2 assa y in vitro. NT PRO-BRAIN NATRIURETIC [id number] 06:30:00 Test Item Value Reference Range Interpretation Comments NT PRO-BRAIN NATRIURETIC PEPTI 719 PG/ML 0-100 H (test code = PROBNP) HGB [id number] 06:21:00 Test Item Value Reference Range Interpretation Comments HEMOGLOBIN (test code = HGB) 14.3 G/DL 12.3-15.9 N HEMATOCRIT (test code = HCT) 44.3 % 35.8-46.7 N GLUCOSE BEDSIDE [id number] 21:12:00 Test Item Value Reference Range Interpretation Comments GLUCOSE BEDSIDE TESTING (test code 198 mg/dL 70-110 H = GLUBED) - CTA CHEST FOR [id number] 17:42:00 [facility] 1945 Sex: M Name: SANCHEZ PATIÑO [facility] : 1945 Age/S: 74 / M [address] Unit #: [id number] Loc: [place] [address] Phys: Noble Rose AGAANAHI Acct: [id number] Dis Date: Status: ADM IN PHONE #: [phone] Exam Date: 02/21/2020 7701 FAX #: Reason: Dyspnea EXAMS: CPT: [id number] CTA CHEST FOR PE 7 1275 Location: CT Chest with Contrast PE protocol Indication: Dyspnea. COPD. Comparison: 07/02/16.Technique: Axial images were obtained through the chest post IV contrast. Sagittal, coronal, and oblique MIPS were obtained. This exam was performed according to our departmental dose-optimization program, which includes automated exposure control, adjustment of the mA and/or kV according to patient size and/or use of iterative reconstruction technique Contrast: Dosage are not available.. Findings: The cardiac silhouette is not enlarged. No pericardial effusion. Enlarged subcarinal and precarinal lymph nodes. Nonenlarged mediastinal lymph nodes are present elsewhere. The aorta is normal in caliber and tapers in a normal fashion. Mild atherosclerotic involvement and calcification. Severe cystic bronchiectasis in the lower lobes and lingula has increased only slightly since prior exam of 07/02/2016.Consolidating patchy infiltrates are present in the left lower lobe, right lower lobe, and right adalid r region, with small infiltrates elsewhere, consistent with pneumonia. Thickening of the bronchiectatic segments in the lower lobes and lingula, with small fluid levels, also consistent with pneumonia.No pleural effusion. Pulmonary arteries are unremarkable. No evidence of pulmonary embolism or obstru ction. Skeletal structures are within normal limits for age. Chest wall is unremarkable. Visualized intra-abdominal organs unremarkable. PAGE 1 Signed Report (CONTINUED) Name: SANCHEZ PATIÑO [facility] : 1945 Age/S: 74 / M [address] Unit #: [id number] Loc: [place] [address] Phys: Noble Rose AGACNP Acct: [id number] Dis Date: Status: ADM IN PHONE #: [phone] Exam Date:02/21/2020 1703 FAX #: Reason: Dyspnea EXAMS: CPT: [id number] [place] [address] (Continued) Impression: 1. No evidence of pulmonary embolism. 2. COPD with bibasilar cystic bronchiectasis. Stable me diastinal adenopathy. 3. Bilateral pneumonia with patchy consolidation in both lower lobes, lingula,and right middle lobe. Minimal infiltrates in the upper lung diaz.. at 1742 Reported and signed by: Alex Mclaughlin M.D.CC: Yifan Pagan Jr, MD; Watson Saucedo MD; Noble Rose Technologist:Deion Freedman, RT(R)(CT)(MRI) CTDI: DLP: Trnscb Date/Time: 02/21/2020 (888) [email or web address] Orig Print D/T: S: 02/21/2020 (9453) PAGE 2 Signed ReportGLUCOSE BEDSIDE [id number] 16:03:00 Test Item Value Reference Range Interpretation Comments GLUCOSE BEDSIDE TESTING (test code 163 mg/dL 70-110 H = GLUBED) PaO2/[id number] 12:35:00 Test Item Value Reference Range Interpretation Comments PaO2/FiO2 (test code = CKK3ZSR3) mm/Hg >200 [id number] 12:35:00 Test Item Value Reference Range Interpretation [...] code = 0.5 % 0.0-0.0 H METHGB) PaO2/[id number] 12:35:00 Test Item Value Reference Range Interpretation Comments PaO2/FiO2 (test code = WJU7GKI3) 175.0 mm/Hg >200 L [id number] 12:35:00 Test Item Value Reference Range Interpretation [...] 0.5 % 0.0-0.0 H METHGB) GLUCOSE BEDSIDE [id number] 11:19:00 Test Item Value Reference Range Interpretation Comments GLUCOSE BEDSIDE TESTING (test code 132 mg/dL 70-110 H = GLUBED) - XR CHEST 1 [id number] 10:17:00 [facility] : 1945 Sex: M Name: SANCHEZ PATIÑO [place] : 1945 Age/S: 74 / M [address] Unit #: [id number] Loc: [place] [address] Phys: Negin Hope MD Acct: [id number] Dis Date: Status: ADM IN PHONE #: [phone] Exam Date: 02/21/2020 1005 FAX #: Reason: hypoxemia EXAMS: CPT: [id number] XR CHEST 1 V 42064 Fluoro Time: DAP (Gy m2): Air Kerma (mGy): EXAM: Portable chest x-ray Dictation location: COMPARISON: Chest x-ray on 05/27/2017 and chest [...] pneumothorax is seen. The cardiac silhouette is within normallimits. No acute bony abnormalities are identified. IMPRESSION: There is a background of cystic bronchiectasis in the lingula and basal segments of the lower lobes which is best seen on the prior CT inApril 2016. There is increased reticular and alveolar opacity at the lung bases compared to the prior chest x-ray in May 2017, suggestive of bronchiolitis and/or bibasilar pneumonia. at 1017 Reported and signed by: Ramin Lira M.D. CC: Yifan Pagan Jr, MD; Negin Hope MD; Watson Saucedo MD PAGE 1 Signed Report Name: SANCHEZ PATIÑO [place] : 1945 Age/S: 74 / M [address] Unit #: [id number] Loc: [place] [address] Phys: Negin Hope MD Acct: [id number] Dis Date: Status: ADM IN PHONE #: [phone] Exam Date: 02/21/2020 1005 FAX #: Reason: hypoxemia EXAMS: CPT: [id number] XR CHEST 1 V 48133 Fluoro Time: DAP (Gy m2): Air Kerma (mGy): (Continued) Technologist: Priti Mg RT(R)(CT) Trnscb Date/Time: 02/21/2020 (1017) [email or web address] Orig Print D/T: S: 02/21/2020 (4357) PAGE 2 Signed ReportGLUCOSE BEDSIDE TESTING 2020-02-21 08:11:00 Test Item Value Reference Range Interpretation Comments GLUCOSE BEDSIDE TESTING (test code = 92 mg/dL 70-110 N GLUBED) CBC W/AUTO [id number] 05:13:00 Test Item Value Reference Range Interpretation [...] NT WITH AUTO DIFFERENTI AL. BASIC METABOLIC [id number] 04:24:00 Test Item Value Reference Range Interpretation [...] CA) 8.3 MG/DL 8.5-10.1 L CBC W/AUTO [id number] 04:18:00 Test Item Value Reference Range Interpretation [...] code = DIFF/SCN CRITERIA MDIFF) GLUCOSE BEDSIDE [id number] 19:58:00 Test Item Value Reference Range Interpretation Comments GLUCOSE BEDSIDE TESTING (test code 179 mg/dL 70-110 H = GLUBED) GLUCOSE BEDSIDE [id number] 16:49:00 Test Item Value Reference Range Interpretation Comments GLUCOSE BEDSIDE TESTING (test code = 97 mg/dL 70-110 N GLUBED) GLUCOSE BEDSIDE [id number] 12:16:00 Test Item Value Reference Range Interpretation Comments GLUCOSE BEDSIDE TESTING (test code 128 mg/dL 70-110 H = GLUBED) - XR KNEE 1 OR 2 V [id number] 11:06:00 [facility] 1945 Sex: M Name: SANCHEZ PATIÑO [facility] : 1945 Age/S: 74 / M [address] Unit #: [id number] Loc: [place] [address] Phys: Watson Saucedo MD Acct: [id number] Dis Date: Status: ADM IN PHONE #: [phone] Exam Date: 02/20/2020 1102 FAX #: Reason: POST OP EXAMS: CPT: [id number] XR KNEE 1 [place] 2 [place] [address] Fluoro Time: DAP (Gy m2): Air Kerma (mGy): LOCATION: T18 EXAM: - XR KNEE 1 OR 2 V LT INDICATION: POST [...] MD PAGE 1 Signed Report Name: SANCHEZ PATIÑO [facility] : 1945 Age/S: 74 / M [address] Unit #: [id number] Loc: [place] [address] Phys: Watson Saucedo MD Acct: [id number] Dis Date: Status: ADM IN PHONE #: [phone] Exam Date: 02/20/2020 110 FAX #: Reason: POST OP EXAMS: CPT: [id number] XR KNEE 1 OR 2 [place] [address] Fluoro Time: DAP (Gy m2): Air Kerma (mGy): (Continued) Technologist: hCata Faulkner, RT(R) Trnscb Date/Time: 02/20/2020 (1105) [email or web address] Orig Print D/T: S: 02/20/2020 (1109) PAGE 2 Signed ReportBASIC METABOLIC [id number] 07:26:00 Test Item Value Reference Range Interpretation [...] CA) 8.5 MG/DL 8.5-10.1 N CBC W/AUTO [id number] 07:19:00 Test Item Value Reference Range Interpretation [...] code NO DIFF/SCN CRITERIA = MDIFF) PROTHROMBIN [id number] 07:15:00 Test Item Value Reference Range Interpretation Comments PT PATIENT (test code = PTP) 11.0 SECONDS 9.3-12.9 N INTERNATIONAL NORMAL RATIO 0.97 INR Unit 0.8-1.2 N (test code = INR) THROMBOPLASTIN TIME [id number] 07:15:00 Test Item Value Reference Range Interpretation Comments THROMBOPLASTIN TIME PARTIAL 35.9 SECONDS 26-35 H (test code = PTT) GLUCOSE BEDSIDE [id number] 06:58:00 Test Item Value Reference Range Interpretation Comments GLUCOSE BEDSIDE TESTING (test code 104 mg/dL 70-110 N = GLUBED) COVID 19 INHOUSE [id number] 06:31:00 Test Item Value Reference Range Interpretation Comments COVID 19 INHOUSE AG NEGATIVE Negative Per manu facturer, (test code = negative result s should [id number]) be treated aspr esumptive and, if inconsi stent with clinical signs andsymptoms or necessary for patient man agement, should betested with an alternative mol ecular assay. Negative resultsdo not preclude SA RS-CoV-2 infection and s hould not be usedas the s ole basis for patient man agement decisions. Nega tive results should be considered in t he context of apatient's r ecent exposures, hist ory, presence of cli nicalsigns and symptoms co nsistent with COVID-19. UA RFLX MICR CULT IF [id number] 06:15:00 Test Item Value Reference Range Interpretation [...] culture: RiskForSepsis-no oth srcSOURCE OF URINE: CLEAN CATCHUA RFLX MICR CULT IF [id number] 06:14:00 Test Item Value Reference Range Interpretation [...] culture: RiskForSepsis-no oth srcSOURCE OF URINE: CLEAN CATCHB- TYPE NATRIURETIC FACTOR (BNP)2019-05-30 12:44:00 Test Item Value Reference Range Interpretation Comments B-TYPE NATRIURETIC PEPTIDE (BEAKER) 26 pg/mL 0-100 (test code = 700) RAPID TROPONIN [id number] 12:44:00 Test Item Value Reference Range Interpretation Comments RAPID TROPONIN I (BEAKER) (test code < ng/mL <0.05 = 1483) [id number] 12:44:00 Test Item Value Reference Range Interpretation Comments D-DIMER QUANTITATIVE (BEAKER) 0.71 MG/L FEU <0.50 H (test code = 671) REGARDING D-DIMER RESULTS: Results of this D-Dimer test should always be interpreted in conjunction with the patient's medical history, clinical presentation and other findings. DVT clinical diagnosis should not be based on the results of INNOVANCE D-Dimer alone.[id number] 12:44:00 Test Item Value Reference Range Interpretation Comments PROTIME (BEAKER) (test code = 10.6 seconds 9.8-12.0 759) INR (BEAKER) (test code = 370) 1.0 <=5.9 PARTIAL THROMBOPLASTIN TIME 31.8 seconds 25.8-34.5 (BEAKER) (test code = 760) RECOMMENDED COUMADIN/WARFARIN INR THERAPY RANGESSTANDARD DOSE: 2.0 - 3.0 Includes: PROPHYLAXIS for venous thrombosis, systemic embolization; TREATMENT for venous thrombosis and/or pulmonary embolus.HIGH RISK: Target INR is 2.5-3.5 for patients with mechanical heart valves.BASIC METABOLIC [id number] 12:30:00 Test Item Value Reference Range Interpretation [...] ESTIMATED GFR. CBC W/PLT COUNT & AUTO [id number] 12:25:00 Test Item Value Reference Range Interpretation [...] (test code = 417) RAD, CHEST, 2 [id number] 11:30:00Reason for exam:->ASTHMAShould this be performed at the bedside?->NoFINAL REPORT INDICATION: ASTHMA COMPARISON: None TECHNIQUE: Frontal and lateralviews of the chest. FINDINGS: Lungs and pleura: Mild bibasilar subsegmental atelectasis superimposed on background of honeycombing and reticulation. Focal wedge-shaped opacity within the left upper lobe, favored to represent air trapping and atelectasis. No effusion.Heart and mediastinum: Normal heartsize. Unremarkable mediastinal contours.Osseous structures: No acute abnormality.Additional findings: None. Signed: Fiorella Fernandez Verified Date/Time: 05/30/2019 11:30:30 Reading Location: [facility] Radiology Reading Room SPUTUM CULTURE + GRAM [...] 5-10 epithelial (BEAKER) (test code cells = 575657) GRAM STAIN RESULT 1+ gram negative (BEAKER) (test code rods = 529982) GRAM STAIN RESULT <1+ gram positive (BEAKER) (test code cocci in pairs = 816462) GRAM STAIN RESULT <1+ gram positive (BEAKER) (test code rods = 506103) 4+ Normal respiratory neetu presentBLOOD [id number] 11:00:00 Test Item Value Reference Range Interpretation Comments CULTURE (BEAKER) (test No growth in 5 days code = 1095) BLOOD [id number] 11:00:00 Test Item Value Reference Range Interpretation Comments CULTURE (BEAKER) (test No growth in 5 days code = 1095) RESPIRATORY PANEL [id number] 09:18:00 Test Item Value Reference Range Interpretation [...] decisions. This sample was tested at the [facility] using the OpsensArray Respiratory Panel. It is FDA cleared and has been verified and approved by the [facility] for clinical use on nasal swab specimens. It is not FDA-cleared for use on bronchial wash/lavage samples. However, for this sample type, validation was performed and test characteristics were determined and approved, by [facility] [employer] laboratory for clinical use under the Clinical Laboratory Improvement Amendments (CLIA) of 1988 requirements. Therefore, FDA clearance isnot required. This laboratory is CLIA- certified and [employer] [place] [employer] (CAP)-accredited to perform high complexity testing.STREP PNEUMONIAE [id number] 11:42:00 Test Item Value Reference Range Interpretation [...] detection limit of the test. LEGIONELLA ANTIGEN, [id number] 11:41:00 Test Item Value Reference Range Interpretation Comments L. PNEUMOPHILA Negative - see Negative fo r L. SEROGP 1 UR AG comment pneumophila (CHRISTA) (test code serogrou p 1 antigen, = 1156) suggesting no r ecent or current infe ction with this serog roup. Legionellosis c annot be ruled out si nce other serogroup s and species may cau se disease. POCT-GLUCOSE [id number] 08:07:00 Test Item Value Reference Range Interpretation Comments POC-GLUCOSE METER 301 mg/dL 70-110 H Notified R Joe CONTEH/TESTED (CHRISTA) (test code = AT [facility] [address] [place] [address] 1538) [facility] 7[address] 0 POCT-GLUCOSE [id number] 20:36:00 Test Item Value Reference Range Interpretation Comments POC-GLUCOSE METER 215 mg/dL 70-110 H TESTED AT [place] [address] ([facility]) (test code = [facility] Chas [facility] 1538) [address] POCT-GLUCOSE [id number] 17:48:00 Test Item Value Reference Range Interpretation Comments POC-GLUCOSE METER 123 mg/dL 70-110 H TESTED AT [place] [address] ([facility]) (test code = [facility] Chas [facility] 1538) [address] RAPID [id number] 14:15:00 Test Item Value Reference Range Interpretation Comments RAPID MYOGLOBIN ([employer]) (test code 65 ng/mL <107 = 2237) B-TYPE NATRIURETIC FACTOR (BNP)2018-01-02 14:14:00 Test Item Value Reference Range Interpretation Comments B-TYPE NATRIURETIC PEPTIDE ([employer]) 59 pg/mL 0-100 (test code = 700) RAPID TROPONIN [id number] 14:14:00 Test Item Value Reference Range Interpretation Comments RAPID TROPONIN I ([employer]) (test code < ng/mL <0.05 = 1483) RAPID [id number] 14:14:00 Test Item Value Reference Range Interpretation Comments RAPID CKMB ([employer]) (test code = 1.3 ng/mL 0.0-4.3 1482) RAPID INFLUENZA A&B [id number] 14:12:00 Test Item Value Reference Range Interpretation Comments RAPID INFLUENZA A AG (BEAKER) Negative Negative, Inconclusive (test code = 1622) RAPID INFLUENZA B AG (BEAKER) Negative Negative, Inconclusive (test code = 1623) COMPREHENSIVE METABOLIC [id number] 14:09:00 Test Item Value Reference Range Interpretation [...] ESTIM ATED GFR. LACTIC ACID, VENOUS, WHOLE [id number] 14:05:00 Test Item Value Reference Range Interpretation Comments LACTATE BLOOD VENOUS (2) (BEAKER) 1.5 mmol/L 0.5-2.2 (test code = 2872) Effective 07/25/2015: Units/Reference Range ChangeNew: 0.5-2.2 mmol/L Previous: 5- 18 mg/dLRAD, CHEST, 2 [id number] 14:04:00Reason for exam:->SHORTNESS OF BREATHReason for exam:->COUGHReason for exam:->SHOULDER PAINShould this be performed at the bedside?->NoFINAL REPORT Chest, two views. MEDICAL HISTORY: Cough, shoulder pain. Comparison Study: None available. FINDINGS: The cardiac silhouette is unremarkable. A 2.7 cm opacity seen in the peripheral portion of the left lower lung [...] is less pronounced than on previous. Signed: Rickie Marrero MDReport Verified Date/Time: 01/02/2018 14:04:47 Reading Location: [address] Consult Reading Room CBC W/PLT COUNT & AUTO DIFFERENTIAL 2018-01-02 14:02:00 Test Item Value Reference Range Interpretation [...] (test code = 417) AFB CULTURE + [id number] 15:07:00 Test Item Value Reference Range Interpretation Comments CULTURE (BEAKER) (test No acid-fast bacilli code = 1095) isolated in 42 days AFB SMEAR (BEAKER) No acid fast bacilli (test code = 994) seen AFB CULTURE + [id number] 15:07:00 Test Item Value Reference Range Interpretation Comments CULTURE (BEAKER) (test No acid-fast bacilli code = 1095) isolated in 42 days AFB SMEAR (BEAKER) No acid fast bacilli (test code = 994) seen FUNGUS CULTURE + [id number] 16:48:00 Test Item Value Reference Range Interpretation Comments CULTURE (BEAKER) (test No fungus isolated in code = 1095) 28 days FUNGUS SMEAR (BEAKER) No fungi seen (test code = 1406) FUNGUS CULTURE + [id number] 16:48:00 Test Item Value Reference Range Interpretation Comments CULTURE (BEAKER) (test No fungus isolated in code = 1095) 28 days FUNGUS SMEAR (BEAKER) No fungi seen (test code = 1406) POCT-GLUCOSE [id number] 07:42:00 Test Item Value Reference Range Interpretation Comments POC-GLUCOSE METER 110 mg/dL 70-110 TESTED AT [facility] 6720 (BEAKER) (test code = [place] 1538) [address] BASIC METABOLIC [id number] 06:47:00 Test Item Value Reference Range Interpretation [...] m DATA TO CALCULA TE ESTIMATED GFR. [id number] 06:32:00 Test Item Value Reference Range Interpretation Comments MAGNESIUM (BEAKER) (test code = 1.9 mg/dL 1.6-2.6 627) CBC W/PLT COUNT & AUTO [id number] 05:58:00 Test Item Value Reference Range Interpretation [...] PERCENT (BEAKER) (test code = 2801) POCT-GLUCOSE [id number] 21:27:00 Test Item Value Reference Range Interpretation Comments POC-GLUCOSE METER 367 mg/dL 70-110 H Notified Chas Diaz MD/TESTED (BEAKER) (test code = AT [facility] [address]) [place] [address] POCT-GLUCOSE [id number] 17:46:00 Test Item Value Reference Range Interpretation Comments POC-GLUCOSE METER 254 mg/dL 70-110 H TESTED AT [facility] 6720 (BEAKER) (test code = [place] 1538) [address] POCT-GLUCOSE [id number] 12:10:00 Test Item Value Reference Range Interpretation Comments POC-GLUCOSE METER 136 mg/dL 70-110 H TESTED AT [facility] 6720 (BEAKER) (test code = [place] 1538) [address] BLOOD [id number] 11:00:00 Test Item Value Reference Range Interpretation Comments CULTURE (BEAKER) (test No growth in 5 days code = 1095) BLOOD [id number] 11:00:00 Test Item Value Reference Range Interpretation Comments CULTURE (BEAKER) (test No growth in 5 days code = 1095) BRONCHIAL CULTURE + GRAM [id number] 09:52:00 Test Item Value Reference Range Interpretation [...] negative RESULT (BEAKER) rods (test code = 874136) <1+ Normal respiratory neetu presentSPUTUM CULTURE + GRAM [id number] 09:40:00 Test Item Value Reference Range Interpretation [...] 0-5 epithelial (BEAKER) (test code cells = 839648) GRAM STAIN RESULT 4+ gram negative (BEAKER) (test code rods = 733570) GRAM STAIN RESULT <1+ gram positive (BEAKER) (test code rods = 055373) GRAM STAIN RESULT 4+ gram positive (BEAKER) (test code cocci in chains, = 475329) pairs and clusters 4+ Normal respiratory neetu presentPOCT-GLUCOSE [id number] 08:02:00 Test Item Value Reference Range Interpretation Comments POC-GLUCOSE METER 198 mg/dL 70-110 H TESTED AT [facility] 6720 (BEAKER) (test code = [place] 1538) [address] BASIC METABOLIC [id number] 07:06:00 Test Item Value Reference Range Interpretation [...] m DATA TO CALCULA TE ESTIMATED GFR. [id number] 06:33:00 Test Item Value Reference Range Interpretation Comments MAGNESIUM (BEAKER) (test code = 2.0 mg/dL 1.6-2.6 627) CBC W/PLT COUNT & AUTO [id number] 05:54:00 Test Item Value Reference Range Interpretation [...] PERCENT (BEAKER) (test code = 2801) POCT-GLUCOSE [id number] 21:54:00 Test Item Value Reference Range Interpretation Comments POC-GLUCOSE METER 199 mg/dL 70-110 H TESTED AT [facility] 6720 ([facility]) (test code = [place] 1538) [address] BRONCHIAL CULTURE + GRAM [id number] 17:45:00 Test Item Value Reference Range Interpretation Comments CULTURE ([facility]) A <1+ Same or ganism has (test code = been isolated f rom 0133) cultures(s) of the same body site within 3 days. Repeat identification and susceptibility testing performed only after consultation wi th the clinical microb iology laboratory.Refe r to previous cultur e ofMethicillin resistant Staphylococcus aureus GRAM STAIN 2+ WBCs RESULT (AKER) (test code = 1123) GRAM STAIN 3+ gram negative RESULT (AKER) rods (test code = 623083) GRAM STAIN <1+ gram RESULT ([facility]) positive cocci (test code = in pairs and 883703) clusters 1+ Normal respiratory neetu presentPOCT-GLUCOSE [id number] 16:39:00 Test Item Value Reference Range Interpretation Comments POC-GLUCOSE METER 296 mg/dL 70-110 H [facility] (BEAKER) (test code = [place] [facility] 1538) [address] POCT-GLUCOSE [id number] 11:55:00 Test Item Value Reference Range Interpretation Comments POC-GLUCOSE METER 290 mg/dL 70-110 H TESTED AT [place] [address] (BEAKER) (test code = [place] [facility] 1538) [address] POCT-GLUCOSE [id number] 07:38:00 Test Item Value Reference Range Interpretation Comments POC-GLUCOSE METER 258 mg/dL 70-110 H TESTED AT [place] [address] [facility] (test code = [facility] Chas [facility] 1538) [address] BASIC METABOLIC [id number] 05:44:00 Test Item Value Reference Range Interpretation [...] m DATA TO CALCULA TE ESTIMATED GFR. [id number] 05:38:00 Test Item Value Reference Range Interpretation Comments MAGNESIUM (BEAKER) (test code = 2.1 mg/dL 1.6-2.6 627) CBC W/PLT COUNT & AUTO [id number] 05:35:00 Test Item Value Reference Range Interpretation [...] METER 330 mg/dL 70-110 H TESTED AT [place] [address] ([facility]) (test code = [place] 1538) [address] POCT-GLUCOSE [id number] 17:44:00 Test Item Value Reference Range Interpretation Comments POC-GLUCOSE METER 206 mg/dL 70-110 H TESTED AT [place] [address] ([facility]) (test code = [place] 1538) [address] SPIN/CONCENTRATION [id number] 16:39:00 Test Item Value Reference Range Interpretation Comments CONCENTRATION CHARGED (BEAKER) (test Done code = 2657) SPIN/CONCENTRATION [id number] 16:39:00 Test Item Value Reference Range Interpretation Comments CONCENTRATION CHARGED (AKER) (test Done code = 2657) POCT-GLUCOSE [id number] 11:57:00 Test Item Value Reference Range Interpretation Comments POC-GLUCOSE METER 227 mg/dL 70-110 H TESTED AT [place] [address] ([facility]) (test code = [place] [facility] 1538) [address] RHEUMATOID FACTOR AB, REFLEX TO [id number] 08:01:00 Test Item Value Reference Range Interpretation Comments RHEUMATOID FACTOR (BEAKER) (test Negative code = 573) POCT-GLUCOSE [id number] 07:53:00 Test Item Value Reference Range Interpretation Comments POC-GLUCOSE METER 216 mg/dL 70-110 H TESTED AT [place] [address] ([facility]) (test code = [place] [facility] 1538) [address] BASIC METABOLIC [id number] 06:57:00 Test Item Value Reference Range Interpretation [...] ESTIMATED GFR. CBC W/PLT COUNT & AUTO [id number] 06:51:00 Test Item Value Reference Range Interpretation [...] 0-1 PERCENT (BEAKER) (test code = 2801) [id number] 06:50:00 Test Item Value Reference Range Interpretation Comments MAGNESIUM (BEAKER) (test code = 2.2 mg/dL 1.6-2.6 627) POCT-GLUCOSE [id number] 21:07:00 Test Item Value Reference Range Interpretation Comments POC-GLUCOSE METER 274 mg/dL 70-110 H TESTED AT [place] [address] (BEAKER) (test code = [place] [facility] 1538) [address] POCT-GLUCOSE [id number] 17:34:00 Test Item Value Reference Range Interpretation Comments POC-GLUCOSE METER 284 mg/dL 70-110 H TESTED AT [place] [address] [facility] (test code = [place] [facility] 1538) [address] [id number] 15:49:00Medical Cytology Report Case: [id number] Authorizing Provider: José Miguel Ayala MD Collected: 10/19/2017 0858 Ordering Location: [address] Received: 10/20/2017 1047 Service Pathologist: James Adame MD Specimen: Lingula LUNG, LINGULA BAL (CYTOSPINS): - UNSATISFACTORY: INSUFFICIENT PULMONARY ELEMENTS PREDOMINANTLY INFLAMMATION Signing Pathologist Direct Phone Line: [phone] signed by James Adame MD on 10/20/2017 at 3:49 [id number], LINGULA BAL22 mls in cytorich red; 4 cytospinsCollected: [id number]: [id number] [facility], Department of Pathology, [address] [place] [address] [place] [address], [facility] [place], Department of Pathology, [address] [place] [address], DMIJ-GLUCOSE [id number] 12:25:00 Test Item Value Reference Range Interpretation Comments POC-GLUCOSE METER 246 mg/dL 70-110 H TESTED AT [place] [address] (BEAKER) (test code = M[place] [facility] 1536) [address] CYTOLOGY [id number] 12:00:00 Test Item Value Reference Range Interpretation Comments CYTOLOGY RESULT POINTER See Separate Report ([facility]) (test code = 2629) BASIC METABOLIC [id number] 07:46:00 Test Item Value Reference Range Interpretation [...] DATA TO CALCULA TE ESTIMATED GFR. POCT-GLUCOSE [id number] 07:38:00 Test Item Value Reference Range Interpretation Comments POC-GLUCOSE METER 318 mg/dL 70-110 H TESTED AT [place] [address] (BEAKER) (test code = [place] [facility] 8952) [address] [id number] 07:09:00 Test Item Value Reference Range Interpretation Comments MAGNESIUM (BEAKER) (test code = 2.3 mg/dL 1.6-2.6 627) CBC W/PLT COUNT & AUTO [id number] 06:53:00 Test Item Value Reference Range Interpretation [...] PERCENT (BEAKER) (test code = 2801) POCT-GLUCOSE [id number] 21:21:00 Test Item Value Reference Range Interpretation Comments POC-GLUCOSE METER 322 mg/dL 70-110 H Notified R Joe CONTEH/TESTED (BEAKER) (test code = AT [facility] [address] [address]) [facility] 7[address] 0 POCT-GLUCOSE [id number] 17:40:00 Test Item Value Reference Range Interpretation Comments POC-GLUCOSE METER 304 mg/dL 70-110 H TESTED AT [place] [address] ([facility]) (test code = MELO [place] [facility] 1538) [address] POCT-GLUCOSE [id number] 11:55:00 Test Item Value Reference Range Interpretation Comments POC-GLUCOSE METER 126 mg/dL 70-110 H TESTED AT [place] [address] ([facility]) (test code = MELO Doherty [facility] 1538) [address] RESPIRATORY PANEL [id number] 10:56:00 Test Item Value Reference Range Interpretation [...] (test code = Inconclusive 3207) BASIC METABOLIC [id number] 09:24:00 Test Item Value Reference Range Interpretation [...] DATA TO CALCULA TE ESTIMATED GFR. POCT-GLUCOSE [id number] 09:11:00 Test Item Value Reference Range Interpretation Comments POC-GLUCOSE METER 130 mg/dL 70-110 H TESTED AT [facility] 6720 (BEAKER) (test code = [place] 1538) [address] [id number] 09:01:00 Test Item Value Reference Range Interpretation Comments MAGNESIUM (BEAKER) (test code = 2.1 mg/dL 1.6-2.6 627) POCT-GLUCOSE [id number] 08:13:00 Test Item Value Reference Range Interpretation Comments POC-GLUCOSE METER 138 mg/dL 70-110 H TESTED AT [facility] 6720 (BEAKER) (test code = [place] 1538) [address] CBC W/PLT COUNT & AUTO [id number] 08:01:00 Test Item Value Reference Range Interpretation [...] (test code = 416) BASOPHILS ABSOLUTE COUNT ([facility]) 0.07 K/ L 0.01-0.08 (test code = 417) IMMATURE GRANULOCYTES-RELATIVE 1 % 0-1 PERCENT ([facility]) (test code = 2801) POCT-GLUCOSE [id number] 22:11:00 Test Item Value Reference Range Interpretation Comments POC-GLUCOSE METER 264 mg/dL 70-110 H TESTED AT [place] [address] ([facility]) (test code = M[place] [facility] 1538) [address] POCT-GLUCOSE [id number] 18:12:00 Test Item Value Reference Range Interpretation Comments POC-GLUCOSE METER 182 mg/dL 70-110 H TESTED AT [place] [address] ([facility]) (test code = [facility] Chas [facility] 1538) [address] POCT-GLUCOSE [id number] 18:01:00 Test Item Value Reference Range Interpretation Comments POC-GLUCOSE METER 269 mg/dL 70-110 H TESTED AT [place] [address] ([facility]) (test code = [facility] 1538) [address] HEMOGLOBIN [id number] 10:39:00 Test Item Value Reference Range Interpretation Comments HEMOGLOBIN A1C ([facility]) (test code = 6.9 % 4.3-6.1 H 368) POCT-GLUCOSE [id number] 07:39:00 Test Item Value Reference Range Interpretation Comments POC-GLUCOSE METER 237 mg/dL 70-110 H TESTED AT [place] [address] ([facility]) (test code = [facility] Chas [facility] 1538) [address] CBC W/PLT COUNT & AUTO [id number] 06:48:00 Test Item Value Reference Range Interpretation Comments WHITE BLOOD CELL COUNT ([facility]) 10.2 K/ L 3.5-10.5 (test code = 775) RED BLOOD CELL COUNT ([facility]) 5.27 M/ L 4.63-6.08 (test code = 761) HEMOGLOBIN ([facility]) (test code = 15.2 GM/DL 13.7-17.5 410) HEMATOCRIT ([facility]) (test code = 46.2 % 40.1-51.0 411) MEAN CORPUSCULAR VOLUME ([facility]) 87.7 fL 79.0-92.2 (test code = 753) MEAN CORPUSCULAR HEMOGLOBIN 28.8 pg 25.7-32.2 (BEAKER) (test code = 751) MEAN CORPUSCULAR HEMOGLOBIN CONC 32.9 GM/DL 32.3-36.5 (BEAKER) (test code = 752) RED CELL DISTRIBUTION WIDTH 12.5 % 11.6-14.4 (BEAKER) (test code = 412) [...] (BEAKER) (test code = 2801) BASIC METABOLIC [id number] 06:45:00 Test Item Value Reference Range Interpretation [...] 358) GLUCOSE RANDOM 244 mg/dL 70-105 H (CHRISTA) (test code = 652) CALCIUM ([facility]) 9.5 mg/dL 8.4-10.2 (test code = 697) EGFR ([facility]) (test mL/min/1.73 INSUFFIC IENT CLINICAL code = 1092) sq m DATA TO CALCULA TE ESTIMATED GFR. [id number] 06:42:00 Test Item Value Reference Range Interpretation Comments MAGNESIUM ([facility]STA) (test code = 2.1 mg/dL 1.6-2.6 627) POCT-GLUCOSE [id number] 21:10:00 Test Item Value Reference Range Interpretation Comments POC-GLUCOSE METER 334 mg/dL 70-110 H Notified R Joe CONTEH/TESTED (CHRISTA) (test code = AT [facility] [address] [facility] 15[address]) [facility] [address], CHEST, WITHOUT [id number] 20:33:00FINAL REPORT Chest CT without contrast CLINICAL HISTORY: Concern for aspiration. TECHNIQUE: Contiguous axial images of the chest without contrast. This exam was performed accordingto the departmental dose optimization program which includes [...] heart and great vessels are normal in size.Coronary coronary and mitral annulus calcifications. Multiple prominent [...] middle and upper lobe tree in bud opacities.Minimally chronic inflammatory etiology such as SLE or rheumatoid arthritis should be considered. Signed: Hina Mike Verified Date/Time: 10/17/2017 20:33:15 Reading Location: [facility] C0[facility] Transitional Reading Room POCT-GLUCOSE [id number] 17:45:00 Test Item Value Reference Range Interpretation Comments POC-GLUCOSE METER 270 mg/dL 70-110 H TESTED AT [facility] 67 (BEAKER) (test code = MELO Doherty [place] 1538) [id number] POCT-GLUCOSE [id number] 14:25:00 Test Item Value Reference Range Interpretation Comments POC-GLUCOSE METER 181 mg/dL 70-110 H TESTED AT [facility] 67 [facility] (test code = MELO Doherty [place] 1538) [id number] B-TYPE NATRIURETIC FACTOR (BNP)2017-10-17 11:16:00 Test Item Value Reference Range Interpretation Comments B-TYPE NATRIURETIC PEPTIDE (BEAKER) 62 pg/mL 0-100 (test code = 700) RAPID TROPONIN [id number] 11:16:00 Test Item Value Reference Range Interpretation Comments RAPID TROPONIN I (BEAKER) (test code < ng/mL <0.05 = 1483) LACTIC ACID, VENOUS, WHOLE [id number] 11:13:00 Test Item Value Reference Range Interpretation Comments LACTATE BLOOD VENOUS (2) (BEAKER) 1.4 mmol/L 0.5-2.2 (test code = 2872) Effective 07/25/2015: Units/Reference Range ChangeNew: 0.5-2.2 mmol/L Previous: 5- 18 mg/dLBASIC METABOLIC [id number] 11:08:00 Test Item Value Reference Range Interpretation [...] ESTIMATED GFR. CBC W/PLT COUNT & AUTO [id number] 10:55:00 Test Item Value Reference Range Interpretation [...] (test code = 417) RAD, CHEST, 2 [id number] 10:34:00Reason for exam:->shortness of breathShould this be [...] limits. No acute osseous abnormality. Signed: Lalo Sanchez MDReport Verified Date/Time: 10/17/2017 10:34:07 ReadingLocation: [facility] B1 C013Y CT Body Reading Room URINALYSIS W/ REFLEX URINE [id number] 12:12:00 Test Item Value Reference Range Interpretation [...] code = 1663) SOURCE(BEAKER) (test code = 2795) RAPID TROPONIN [id number] 11:19:00 Test Item Value Reference Range Interpretation Comments RAPID TROPONIN I (BEAKER) (test code < ng/mL <0.05 = 1483) RAPID [id number] 11:19:00 Test Item Value Reference Range Interpretation Comments RAPID CKMB (BEAKER) (test code = 1.0 ng/mL 0.0-4.3 1482) B-TYPE NATRIURETIC FACTOR (BNP)2017-07-28 11:19:00 Test Item Value Reference Range Interpretation Comments B-TYPE NATRIURETIC PEPTIDE (BEAKER) 12 pg/mL 0-100 (test code = 700) BASIC METABOLIC [id number] 11:15:00 Test Item Value Reference Range Interpretation [...] TO CALCULA TE ESTIMATED GFR. HEPATIC FUNCTION [id number] 11:15:00 Test Item Value Reference Range Interpretation [...] 5-50 347) CBC W/PLT COUNT & AUTO [id number] 11:09:00 Test Item Value Reference Range Interpretation [...] (test code = 417) RAD, CHEST, 2 [id number] 11:08:00Reason for exam:->SHORTNESS OF BREATH FINAL REPORT Chest 4 views 07/28/2017 11:07 AM CLINICAL HISTORY: SHORTNESS OF BREATH COMPARISON: None available IMPRESSION: There is suspected chronic fibrotic changes in the left greater than right lower lungs. Superimposed acute infectious/inflammatory process should be excluded cl inically. Cardiomediastinal contours are within normal limits. The central pulmonary vasculature is not engorged. The visualized skeleton is intact. Signed: Syd Irby MDReport Verified Date/Time:07/28/2017 11:08:30 Reading Location: [facility] Radiology Reading Room
--- NOTE | 2022-03-22 19:30 | RAD REPORT ---
EXAM DESCRIPTION: RAD - Chest Single View - 03/22/2022 7:21 pm CLINICAL HISTORY: COUGH COMPARISON: Chest Single View dated 04/11/2017; Chest Single View dated 02/27/2017; Chest Pa And Lat ( 2 Views) dated 12/25/2016; Chest Single View dated 12/24/2016 FINDINGS: Lines: None. Lungs: Coarsening of the interstitium bilaterally with more focal opacities in the lung bases. Pleural: No significant pleural effusions or pneumothorax. Cardiac: The heart size is within normal limits. Mediastinum: Within normal limits. Bones: No acute fractures. Other: None IMPRESSION: Coarsened interstitium with more focal opacities at the lung bases concerning for pneumo em.
[2022-03-22 19:40] LABS: Urine Blood Negative (Negative); Urine Glucose 3+ (Negative); Urine Protein Negative (Negative)
[2022-03-22] MEDS ORDERED: NA CHLORIDE 0.9% 1,000 ML ONE (19:48)
[2022-03-22 19:52] LABS: Absolute Lymphocytes (CBC) 1.4 K/uL (0.7-4.9); Hematocrit 44.9 % (39.6-49.0); Lymphocytes % 17.1 % (15.3-44.8); MCV 86.4 fL (80-100); MPV 7.9 fL (7.6-11.3); RBC Red Blood Cell Count 5.19 M/uL (4.33-5.43)
[2022-03-22 19:53] LABS: Protime INR 1.05
--- NOTE | 2022-03-22 19:54 | RAD REPORT ---
EXAM DESCRIPTION: CT - Ct Stroke Brain Wo Cont - 03/22/2022 7:39 pm CLINICAL HISTORY: dizzy COMPARISON: No comparisons TECHNIQUE: All CT scans are performed using dose optimization technique as appropriate and may inclu de automated exposure control or mA/KV adjustment according to patient size. FINDINGS: No intracranial hemorrhage, hydrocephalus or extra-axial fluid collection.No areas of brai n edema or evidence of midline shift. Mild to moderate chronic small vessel ischemic changes. Chronic sinusitis of the maxillary sinuses. Right mastoid fluid. No skull fracture. IMPRESSION: No acute intracranial abnormality. Mild to moderate chronic small vessel ischemic lin es.
[2022-03-22 20:06] LABS: Albumin 3.4 g/dL (3.4-5.0); Bilirubin Direct 0.1 mg/dL (0-0.2); Bilirubin Total 0.3 mg/dL (0.2-1.0); Potassium 3.7 mmol/L (3.5-5.1); Protein, Total 7.4 g/dL (6.4-8.2); Troponin High Sensitivity 8.3 pg/mL (<58.9)
--- NOTE | 2022-03-22 20:32 | RAD REPORT ---
EXAM DESCRIPTION: - CP - 03/22/2022 8:24 pm CLINICAL HISTORY: DIZZINESS COMPARISON: Head C Spine Mpr Wo Con dated 06/26/2020 TECHNIQUE: Real-time sonographic evaluation of both carotid systems was performed. Doppler interroga tion was performed with waveform tracing bilaterally. FINDINGS: Normal high resistance waveforms are noted in both external carotid arteries. The common c arotid arteries and internal carotid arteries show normal low resistance waveforms. Hard plaque is present at both carotid bulbs. Peak systolic and end diastolic velocity values and the ICA/CCA ratios are in the non-hemodynamically significant range. Antegrade flow seen in both vertebral arteries. IMPRESSION: No evidence of a hemodynamically significant stenosis. Hard plaque present at both carot id bulbs.
--- NOTE | 2022-03-22 21:02 | ER ---
Nurse's Notes [facility] Name: Juan Luis Salgado Age: 76 yrs Sex: Male : 1945 Arrival Date: 03/22/2022 Time: 18:58 Bed 8 Private MD: Diagnosis: Dizziness and giddiness;COPD/ Chronic obstructive pulmonary disease with (acute) exacerbation;Weakness;Pneumonia due to other specified bacteria-bilateral lower lobes Presentation: 03/22 18:58 Chief complaint: EMS states: pt has been dizzy and has loss of balance since Thursday. mb9 Pt fell off sons porch on Thanksgiving and hit head. Was recently discharged from [facility] last week with no acute findings. Coronavirus screen: Vaccine status: Patient reports receiving the 2nd dose of the covid vaccine. Ebola Screen: No symptoms or risks identified at this time. Initial Sepsis Screen: Does the patient meet any 2 criteria? No. Patient's initial sepsis screen is negative. Does the patient have a suspected source of infection? No. Patient's initial sepsis screen is negative. Risk Assessment: Do you want to hurt yourself or someone else? Patient reports no desire to harm self or others. Onset of symptoms was March 18, 2022. 18:58 Method Of Arrival: EMS: [facility] mb9 18:58 Acuity: BARBY 3 mb9 Historical: - Allergies: 19:08 Aspirin; mb9 19:08 PENICILLINS; mb9 - PMHx: 19:08 Bronchitis; Diabetes - NIDDM; Emphysema; PERIPHERAL NEUROPATHY; COPD; mb9 - Immunization history:: Adult Immunizations up to date. - Social history:: Smoking status: Patient reports the use of cigarette tobacco products, 2-3 cigarettes per day. Screenin:00 [facility] ED Fall Risk Assessment (Adult) History of falling in the last 3 months, jb4 including since admission Yes- single mechanical fall (1 pt) Confusion or Disorientation No (0 pts) Intoxicated or Sedated No (0 pts) Impaired Gait No (0 pts) Mobility Assist Device Used No (0 pt) Altered Elimination No (0 pt) Score/Fall Risk Level 0 - 2 = Low Risk Oriented to surroundings, Maintained a safe environment. Abuse screen: Denies threats or abuse. Nutritional screening: No deficits noted. Tuberculosis screening: No symptoms or risk factors identified. Assessment: 19:00 General: Appears in no apparent distress. comfortable, Behavior is calm, cooperative, jb4 appropriate for age. Pain: Complains of pain in occipital area Pain radiates to right ear Pain currently is 8 out of 10 on a pain scale. Neuro: Level of Consciousness is awake, alert, obeys commands, Oriented to person, place, time, situation. Cardiovascular: Patient's skin is warm and dry. Respiratory: Airway is patent Respiratory effort is even, unlabored, Respiratory pattern is regular, symmetrical. GI: No signs and/or symptoms were reported involving the gastrointestinal system. : No signs and/or symptoms were reported regarding the genitourinary system. EENT: No signs and/or symptoms were reported regarding the EENT system. Derm: Skin is intact, Skin is pink, warm \T\ dry. Musculoskeletal: Circulation, motion, and sensation intact. Range of motion: intact in all extremities. 20:00 Reassessment: Patient appears in no apparent distress at this time. Patient and/or jb4 family updated on plan of care and expected duration. Pain level reassessed. Patient is alert, oriented x 3, equal unlabored respirations, skin warm/dry/pink. 21:00 Reassessment: Patient appears in no apparent distress at this time. Patient and/or jb4 family updated on plan of care and expected duration. Pain level reassessed. Patient is alert, oriented x 3, equal unlabored respirations, skin warm/dry/pink. 22:00 Reassessment: Patient appears in no apparent distress at this time. Patient and/or jb4 family updated on plan of care and expected duration. Pain level reassessed. Patient is alert, oriented x 3, equal unlabored respirations, skin warm/dry/pink. 23:00 Reassessment: Patient appears in no apparent distress at this time. Patient and/or jb4 family updated on plan of care and expected duration. Pain level reassessed. Patient is alert, oriented x 3, equal unlabored respirations, skin warm/dry/pink. 03/23 00:03 Reassessment: Patient appears in no apparent distress at this time. Patient and/or jb4 family updated on plan of care and expected duration. Pain level reassessed. Patient is alert, oriented x 3, equal unlabored respirations, skin warm/dry/pink. Vital Signs: 03/22 18:58 BP 157 / 78; Pulse 82; Resp 22; Temp 98.8(O); Pulse Ox 92% ; Weight 68.04 kg; Height 5 mb9 ft. 6 in. (167.64 cm); Pain 8/10; 20:00 BP 143 / 72; Pulse 64; Resp 20; Pulse Ox 97% on 2 lpm NC; jb4 21:00 BP 151 / 67; Pulse 59; Resp 20; Pulse Ox 97% on 2 lpm NC; jb4 23:00 BP 160 / 72; Pulse 59; Resp 22; Pulse Ox 100% on Nebulizer Mask; jb4 03/23 00:03 BP 157 / 71; Pulse 65; Resp 20; Pulse Ox 96% on 2 lpm NC; jb4 03/22 18:58 Body Mass Index 24.21 (68.04 kg, 167.64 cm) 9 ED Course: 03/22 18:58 Patient arrived in ED. mb9 18:58 Arm band placed on. mb9 19:07 Juan Summers MD is Attending Physician. huey 19:07 Triage completed. mb9 19:23 XRAY Chest (1 view) In Process Unspecified. EDMS 19:27 Initial lab(s) drawn, by nd, sent to lab. Inserted saline lock: 18 gauge in right jb4 forearm, using aseptic technique. Blood collected. 19:40 Basic Metabolic Panel Sent. jb4 19:40 CBC with Diff Sent. jb4 19:40 LFT's Sent. jb4 19:40 Magnesium Sent. jb4 19:40 NT PRO-BNP Sent. jb4 19:40 PT-INR Sent. jb4 19:40 Troponin HS Sent. jb4 19:41 Ct Stroke Brain Wo Cont In Process Unspecified. EDMS 19:41 Urine Culture Sent. jb4 20:26 US Carotid Artery Bilateral In Process Unspecified. EDMS 20:50 Spike Zhou, RN is Primary Nurse. jb4 21:01 Ezekiel Jones MD is Hospitalizing Provider. huey 21:41 CT C Spine In Process Unspecified. EDMS 22:35 Accessed peripheral vein via ultrasound, utilizing dynamic ultrasound technique bb Powerglide midline 20g 10cm to right upper arm using hospital protocol with good blood return and flushes easily pt tolerated well. 23:19 COVID-19/FLU A+B Sent. jb4 03/23 00:32 No provider procedures requiring assistance completed. Patient admitted, IV remains in jb4 place. Administered Medications: 03/22 19:52 Drug: NS 0.9% 500 ml Route: IV; Rate: bolus; Site: right forearm; jb4 20:30 Follow up: Response: No adverse reaction; IV Status: Completed infusion; IV Intake: jb4 500ml 20:50 Drug: NS 0.9% 1000 ml Route: IV; Rate: 125 ml/hr; Site: right forearm; jb4 22:37 Not Given (Physician Discretion): predniSONE 40 mg PO once jb4 22:58 Drug: SOLU-Medrol (methylPrednisoLONE) 125 mg Route: IVP; Site: right upper arm; jb4 23:30 Follow up: Response: No adverse reaction; Marked relief of symptoms 4 22:58 Drug: Albuterol - atroVENT (ipratropium) (3:1) (2.5 mg - 0.5 mg) 3 ml Route: Nebulizer; 4 23:30 Follow up: Response: No adverse reaction [facility] 22:58 Drug: Rocephin (cefTRIAXone) 2 grams Route: IV; Rate: per protocol; Site: right upper [facility] arm; 23:30 Follow up: Response: No adverse reaction; IV Status: Completed infusion 4 22:58 Drug: NS 0.9% 500 ml Route: IV; Rate: bolus; Site: right upper arm; jb4 23:30 Follow up: Response: No adverse reaction; IV Status: Completed infusion; IV Intake: jb4 500ml 23:45 Drug: Zithromax (azithromycin) 500 mg Route: IVPB; Infused Over: 1 hrs; Site: right [facility] upper arm; 03/23 00:34 Follow up: Response: No adverse reaction; IV Status: Infusion continued upon admission jb4 Intake: 03/22 20:30 IV: 500ml; Total: 500ml. jb4 23:30 IV: 500ml; Total: 1000ml. jb4 Outcome: 21:02 Decision to Hospitalize by Provider. [facility] 03/23 00:32 Admitted to Tele accompanied by nurse, via stretcher, room 402, with oxygen, with chart.jb4 Condition: stable Discharge instructions given to patient, Instructed on the need for admit, Demonstrated understanding of instructions. 00:35 Patient left the ED. jb4 Signatures: Dispatcher [employer] EDMS Juan Summers MD MD cha Ballard, Brenda RN RN Spike Cardona RN RN [facility] Chrystal David RN RN 9 Corrections: (The following items were deleted from the chart) 03/22 19:09 18:58 Chief complaint: EMS states: pt has been dizzy and has loss of balance since mb9 Thursday. Pt fell off sons porch on Thanksgiving and hit head. Was recently discharged from [facility] last week with no acute findings 9 19:53 19:52 NS 0.9% 500 ml IV at bolus in right antecubital jb4 4 03/23 00:32 00:31 [facility] ED Fall Risk Assessment (Adult) History of falling in the last 3 months, jb4 including since admission Yes- single mechanical fall (1 pt) Confusion or Disorientation No (0 pts) Intoxicated or Sedated No (0 pts) Impaired Gait No (0 pts) Mobility Assist Device Used No (0 pt) Altered Elimination No (0 pt) Score/Fall Risk Level 0 - 2 = Low Risk Oriented to surroundings, Maintained a safe environment, 4 00:32 00:31 Abuse screen: Denies threats or abuse. 4 4 00:32 00:31 Nutritional screening: No deficits noted. 4 4 00:32 00:31 Tuberculosis screening: No symptoms or risk factors identified. 4 jb4
--- NOTE | 2022-03-22 21:02 | EDPHYS ---
Physician Documentation [facility] Name: Juan Luis Salgado Age: 76 yrs Sex: Male : 1945 Arrival Date: 03/22/2022 Time: 18:58 Bed 8 Private MD: ED Physician Juan Summers HPI: 03/22 20:52 This 76 yrs old Male presents to ER via EMS with complaints of Dizziness. huey 20:52 The patient presents with dizziness, generalized weakness. huey Historical: - Allergies: 19:08 Aspirin; mb9 19:08 PENICILLINS; mb9 - PMHx: 19:08 Bronchitis; Diabetes - NIDDM; Emphysema; PERIPHERAL NEUROPATHY; COPD; mb9 - Immunization history:: Adult Immunizations up to date. - Social history:: Smoking status: Patient reports the use of cigarette tobacco products, 2-3 cigarettes per day. ROS: 20:54 Constitutional: Negative for fever, chills, and weight loss, Eyes: Negative for injury, huey pain, redness, and discharge, ENT: Negative for injury, pain, and discharge, Neck: Negative for injury, pain, and swelling, Cardiovascular: Negative for chest pain, palpitations, and edema, Abdomen/GI: Negative for abdominal pain, nausea, vomiting, diarrhea, and constipation, Back: Negative for injury and pain, : Negative for injury, bleeding, discharge, and swelling, MS/Extremity: Negative for injury and deformity, Skin: Negative for injury, rash, and discoloration, Neuro: Negative for headache, weakness, numbness, tingling, and seizure, Psych: Negative for depression, anxiety, suicide ideation, homicidal ideation, and hallucinations, Allergy/Immunology: Negative for hives, rash, and allergies, Endocrine: Negative for neck swelling, polydipsia, polyuria, polyphagia, and marked weight changes, Hematologic/Lymphatic: Negative for swollen nodes, abnormal bleeding, and unusual bruising. 20:54 Respiratory: Positive for cough, wheezing, expiratory. Exam: 20:54 Constitutional: This is a well developed, well nourished patient who is awake, alert, huey and in no acute distress. Head/Face: Normocephalic, atraumatic. Eyes: Pupils equal round and reactive to light, extra-ocular motions intact. Lids and lashes normal. Conjunctiva and sclera are non-icteric and not injected. Cornea within normal limits. Periorbital areas with no swelling, redness, or edema. ENT: Nares patent. No nasal discharge, no septal abnormalities noted. Tympanic membranes are normal and external auditory canals are clear. Oropharynx with no redness, swelling, or masses, exudates, or evidence of obstruction, uvula midline. Mucous membranes moist. Neck: Trachea midline, no thyromegaly or masses palpated, and no cervical lymphadenopathy. Supple, full range of motion without nuchal rigidity, or vertebral point tenderness. No Meningismus. Chest/axilla: Normal chest wall appearance and motion. Nontender with no deformity. No lesions are appreciated. Cardiovascular: Regular rate and rhythm with a normal S1 and S2. No gallops, murmurs, or rubs. Normal PMI, no JVD. No pulse deficits. Abdomen/GI: Soft, non-tender, with normal bowel sounds. No distension or tympany. No guarding or rebound. No evidence of tenderness throughout. Back: No spinal tenderness. No costovertebral tenderness. Full range of motion. Male : Normal genitalia with no discharge or lesions. Skin: Warm, dry with normal turgor. Normal color with no rashes, no lesions, and no evidence of cellulitis. MS/ Extremity: Pulses equal, no cyanosis. Neurovascular intact. Full, normal range of motion. Neuro: Awake and alert, GCS 15, oriented to person, place, time, and situation. Cranial nerves II-XII grossly intact. Motor strength 5/5 in all extremities. Sensory grossly intact. Cerebellar exam normal. Normal gait. Psych: Awake, alert, with orientation to person, place and time. Behavior, mood, and affect are within normal limits. 20:54 Respiratory: the patient does not display signs of respiratory distress, Respirations: normal, Breath sounds: bronchial sounds, that are mild, decreased breath sounds, rhonchi, stridor, is not appreciated, + upper airway congestion. wheezing: is not appreciated, is heard diffusely. 21:31 ECG was reviewed by the Attending Physician. [facility] Vital Signs: 18:58 BP 157 / 78; Pulse 82; Resp 22; Temp 98.8(O); Pulse Ox 92% ; Weight 68.04 kg; Height 5 mb9 ft. 6 in. (167.64 cm); Pain 8/10; 20:00 BP 143 / 72; Pulse 64; Resp 20; Pulse Ox 97% on 2 lpm NC; jb4 21:00 BP 151 / 67; Pulse 59; Resp 20; Pulse Ox 97% on 2 lpm NC; jb4 23:00 BP 160 / 72; Pulse 59; Resp 22; Pulse Ox 100% on Nebulizer Mask; jb4 03/23 00:03 BP 157 / 71; Pulse 65; Resp 20; Pulse Ox 96% on 2 lpm NC; 4 03/22 18:58 Body Mass Index 24.21 (68.04 kg, 167.64 cm) mb9 MDM: 03/22 19:07 Patient medically screened. huey 20:58 Differential diagnosis: Anemia Bronchitis CHF exacerbation, Chronic Obstructive huey Pulmonary Disease pneumonia, pulmonary edema, reactive airway disease, Sepsis. Antibiotic administration: Rocephin and Zithromax given. Differential diagnosis: cardiac arrhythmia, generalized weakness, hypovolemia, near-syncope, TIA, vertigo. The patient's Wells Deep Vein Thrombosis Score was calculated as follows: Total Score: 0-2 Pts- Low Risk. Differential Diagnosis: Obstructed Airway Bronchitis Influenza Upper Respiratory Infection Pharyngitis Asthma Exacerbation Viral Syndrome Pneumonia. The patient's pulmonary embolism risk score was calculated as follows: Total Score: 0-2 points. This patient was found to be at low risk for a pulmonary embolism by using the Well's assessment criteria. Immunization status: Pneumococcal vaccine: Influenza vaccine: Data reviewed: vital signs, nurses notes, EMS record, lab test result(s), EKG, radiologic studies, CT scan, plain films. Data interpreted: security monitor: rate is 82 beats/min, rhythm is regular, Pulse oximetry: on room air is 92 %. Test interpretation: by ED physician or midlevel provider: ECG, plain radiologic studies. Counseling: I had a detailed discussion with the patient and/or guardian regarding: the historical points, exam findings, and any diagnostic results supporting the discharge/admit diagnosis, the presence of at least one elevated blood pressure reading (>120/80) during this emergency department visit, lab results, radiology results, the need for further work-up and treatment in the hospital. 03/22 19:08 Order name: Basic Metabolic Panel; Complete Time: 20:50 [facility] 03/22 19:08 Order name: CBC with Diff; Complete Time: 20:50 [facility] 03/22 19:08 Order name: LFT's; Complete Time: 20:50 [facility] 03/22 19:08 Order name: Magnesium; Complete Time: 20:50 [facility] 03/22 19:08 Order name: NT PRO-BNP; Complete Time: 20:50 [facility] 03/22 19:08 Order name: PT-INR; Complete Time: 20:50 [facility] 03/22 19:08 Order name: Troponin HS; Complete Time: 20:50 [facility] 03/22 19:08 Order name: XRAY Chest (1 view); Complete Time: 20:50 [facility] 03/22 19:08 Order name: US Carotid Artery Bilateral; Complete Time: 20:50 [facility] 03/22 19:08 Order name: Urine Culture [facility] 03/22 19:40 Order name: Urine Dipstick-Ancillary; Complete Time: 20:50 EDMS 03/22 20:51 Order name: Blood Culture Adult (2) [facility] 03/22 20:51 Order name: Lactate w/ 2H reflex if indic.; Complete Time: 22:16 [facility] 03/22 20:54 Order name: COVID-19/FLU A+B; Complete Time: 23:52 [facility] 03/22 19:08 Order name: EKG; Complete Time: 19:09 [facility] 03/22 19:08 Order name: Cardiac monitoring; Complete Time: 22:58 [facility] 03/22 19:08 Order name: EKG - Nurse/Tech; Complete Time: 22:58 [facility] 03/22 19:08 Order name: IV Saline Lock; Complete Time: 19:40 [facility] 03/22 19:08 Order name: Labs collected and sent; Complete Time: 19:40 [facility] 03/22 19:08 Order name: CT Stroke Brain w/o Contrast [facility] 03/22 19:13 Order name: Ct Stroke Brain Wo Cont; Complete Time: 20:50 EDMS 03/22 20:49 Order name: CT C Spine; Complete Time: 22:16 [facility] 03/22 19:08 Order name: O2 Per Protocol; Complete Time: 19:40 [facility] 03/22 19:08 Order name: O2 Sat Monitoring; Complete Time: 19:40 [facility] 03/22 19:08 Order name: Urine Dipstick-Ancillary (obtain specimen); Complete Time: 19:40 [facility] EC:31 Rate is 59 beats/min. Rhythm is regular. QRS [place] is Normal. [place] interval is normal. QRS huey interval is normal. QT interval is normal. No Q waves. T waves are Normal. No ST changes noted. Clinical impression: Sinus bradycardia and No evidence of ischemia. Interpreted by me. Reviewed by me. Administered Medications: 19:52 Drug: NS 0.9% 500 ml Route: IV; Rate: bolus; Site: right forearm; jb4 20:30 Follow up: Response: No adverse reaction; IV Status: Completed infusion; IV Intake: jb4 500ml 20:50 Drug: NS 0.9% 1000 ml Route: IV; Rate: 125 ml/hr; Site: right forearm; jb4 22:37 Not Given (Physician Discretion): predniSONE 40 mg PO once jb4 22:58 Drug: SOLU-Medrol (methylPrednisoLONE) 125 mg Route: IVP; Site: right upper arm; jb4 23:30 Follow up: Response: No adverse reaction; Marked relief of symptoms jb4 22:58 Drug: Albuterol - atroVENT (ipratropium) (3:1) (2.5 mg - 0.5 mg) 3 ml Route: Nebulizer; 4 23:30 Follow up: Response: No adverse reaction jb4 22:58 Drug: Rocephin (cefTRIAXone) 2 grams Route: IV; Rate: per protocol; Site: right upper [facility] arm; 23:30 Follow up: Response: No adverse reaction; IV Status: Completed infusion jb4 22:58 Drug: NS 0.9% 500 ml Route: IV; Rate: bolus; Site: right upper arm; jb4 23:30 Follow up: Response: No adverse reaction; IV Status: Completed infusion; IV Intake: jb4 500ml 23:45 Drug: Zithromax (azithromycin) 500 mg Route: IVPB; Infused Over: 1 hrs; Site: right [facility] upper arm; 03/23 00:34 Follow up: Response: No adverse reaction; IV Status: Infusion continued upon admission jb4 Disposition Summary: 03/22/22 21:02 Hospitalization Ordered Hospitalization Status: Inpatient Admission huey Provider: Ezekiel Jones cha Location: Telemetry/MedSurg (Inpatient) huey Condition: Fair huey Problem: new huey Symptoms: have improved huey Bed/Room Type: Standard huey Room Assignment: 402(03/22/22 23:53) bb Diagnosis - Dizziness and giddiness huey - COPD/ Chronic obstructive pulmonary disease with (acute) exacerbation huey - Weakness huey - Pneumonia due to other specified bacteria - bilateral lower lobes huey Forms: - Medication Reconciliation Form huey - SBAR form huey Signatures: Dispatcher [employer] Juan Chandra MD MD cha Ballard, Brenda RN RN bb Spike Zhou RN RN jb4 Gemma Chambers PA-C PA-C sb4 Chrystal David RN RN mb9 Corrections: (The following items were deleted from the chart) 03/22 23:53 21:02 huey littlejohn
--- NOTE | 2022-03-22 21:56 | RAD REPORT ---
EXAM DESCRIPTION: CT - C Spine Wo Con - 03/22/2022 9:41 pm CLINICAL HISTORY: Neck trauma COMPARISON: Head C Spine Mpr Wo Con dated 06/26/2020; Ct Stroke Brain Wo Cont dated 03/22/2022 TECHNIQUE: CT Scan was obtained of the cervical spine without contrast. Reformats were provided in t he sagittal and coronal plane. FINDINGS: No acute fracture of the cervical spine. Anterolisthesis of C3 on C4 and C4 on C5 is prese nt, likely related to underlying degenerative changes. Neural foraminal narrowing is present bilatera lly. No definite central spinal stenosis. No prevertebral edema. No significant focal degenerative ch anges. No suspicious thyroid nodules or lymphadenopathy. Mucoperiosteal thickening within the maxilla ry sinuses consistent with chronic sinusitis. IMPRESSION: No fracture or traumatic malalignment of the cervical spine.
[2022-03-22] MEDS ORDERED: AZITHROMYCIN 500 MG INJ IVPB ONE (22:38)
[2022-03-22] MEDS ORDERED: CEFTRIAXONE 1000 MG/VIAL ONE ×2 (22:38→22:43)
[2022-03-22] MEDS ORDERED: ALBUTEROL 2.5 MG/3 ML NEB SOL ONE (22:38)
[2022-03-22] MEDS ORDERED: NA CHLORIDE 0.9% 500 ML ONE (22:39)
[2022-03-22] MEDS ORDERED: IPRATROPIUM BROM 0.5MG/2.5ML ONE (22:39)
[2022-03-22] MEDS ORDERED: NA CHLORIDE 0.9% 250 ML ONE (22:39)
[2022-03-22] MEDS ORDERED: NA CHLORIDE 0.9% 100 ML IV ONE (22:43)
[2022-03-22] MEDS ORDERED: METHYLPREDNISOLONE 125 MG INJ ONE (22:49)
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
[2022-03-22 23:50] LABS: SARS-COV-2 RT PCR NEGATIVE (NEGATIVE)
[2022-03-23] MEDS ORDERED: ALBUTEROL 2.5 MG/3 ML NEB SOL NEB PRN (00:34)
[2022-03-23] MEDS ORDERED: ONDANSETRON 4 MG/2 ML VIAL IV PRN (00:34)
[2022-03-23] MEDS ORDERED: IPRATROPIUM BROM 0.5MG/2.5ML NEB PRN (00:34)
[2022-03-23] MEDS ORDERED: ACETAMINOPHEN 500 MG TAB PO PRN (00:34)
[2022-03-23] MEDS: METHYLPREDNISOLONE 40 MG INJ IV SCH ×2 (01:17→09:00)
[2022-03-23 01:35] VITALS: BMI 29.0
[2022-03-23] MEDS: MELATONIN 5 MG TABLET PO PRN ×2 (01:54→20:53)
[2022-03-23 05:04] LABS: Absolute Lymphocytes (CBC) 0.3 K/uL (0.7-4.9); Hematocrit 42.7 % (39.6-49.0); MCV 86.7 fL (80-100); MPV 8.3 fL (7.6-11.3); RBC Red Blood Cell Count 4.92 M/uL (4.33-5.43)
[2022-03-23 05:07] LABS: Phosphorus 2.9 mg/dL (2.5-4.9); Potassium 4.1 mmol/L (3.5-5.1); Thyroid Stimulating Hormone 1.65 uIU/mL (0.358-3.740)
[2022-03-23] MEDS: INSULIN -REGULAR HUMAN 50 UNIT/0.5 ML ML SQ SCH ×4 (07:30→20:44)
[2022-03-23] MEDS: BUPROPION HCL XL 150 MG TAB PO SCH ×2 (09:00→20:49)
[2022-03-23] MEDS: TAMSULOSIN 0.4 MG SR CAP PO SCH (09:00)
[2022-03-23] MEDS ORDERED: CEFTRIAXONE 1,000 MG in NA CHLORIDE 0.9% 50 ML IVPB SCH (09:00)
[2022-03-23] MEDS ORDERED: AZITHROMYCIN IV 500 MG in NA CHLORIDE 0.9% 250 ML IVPB SCH (09:00)
--- NOTE | 2022-03-23 11:13 | P.PN ---
Subjective Date of Service: 03/23/22 Chief Complaint: Dizziness She has been complaining of chronic dizziness was also seen at [facility] with no clear diagnosis as per H&P has a history of COPD currently he is worse when his walking has also fallen planing of vertigo Review of Systems General: Weakness Respiratory: Shortness of Breath Neurological: As per HPI Physical Examination - Vital Signs Temperature: 97.4 F Blood Pressure: 131/68 Pulse: 66 Respirations: 15 Pulse Ox (%): 96 - Physical Exam General: Alert, In no apparent distress, Oriented x3 Neck: Supple Respiratory: Expiratory wheezes Cardiovascular: No edema, Regular rate/rhythm Gastrointestinal: Normal bowel sounds, Soft and benign - Studies Laboratory Data (last 24 hrs) 03/22/22 19:27: PT 11.5, INR 1.05 03/22/22 19:27: WBC 8.50, Hgb 15.2, Hct 44.9, Plt Count 229 03/22/22 19:27: Sodium 135 L, Potassium 3.7, BUN 9, Creatinine 0.95, Glucose 109 H, Magnesium 2.0, Total Bilirubin 0.3, AST 16, ALT 17, Alkaline Phosphatase 83 Microbiology Data (last 24 hrs): 03/22/22 21:30 Blood - Blood Anaerobic Blood Culture - Final Assessment And Plan - Current Problems (Diagnosis) (1) Dizziness Current Visit: Yes Status: Acute Plan: Patient is 76 years of age admitted with dizziness and falls stable vertigo scan of the head and carotid ultrasound did not show any significant stroke or stenosis consult neurology physical therapy also seen at [facility] with no clear diagnosis due to his recurrent falls we will continue to observe admit ambulate with assistance arrange for him to have a walker (2) COPD (chronic obstructive pulmonary disease) Current Visit: Yes Status: Acute Plan: Patient is seeing a workforce planning analyst Dr. Ulloa at [facility] compliant with his therapy Physician Review: Patient Assessed, Agree with Above Assessment and Plan
[2022-03-23] MEDS: [UNRECOGNIZED DRUG - OTHER] PO SCH (12:17)
[2022-03-23] MEDS: DAPAGLIFLOZIN PO SCH (12:17)
[2022-03-23] MEDS: METFORMIN HCL PO SCH (12:17)
[2022-03-23 20:27] LABS: Specific Gravity 1.018 (1.005-1.030); Urine Bilirubin NEGATIVE (Negative); Urine Blood Negative (Negative); Urine Clarity Clear (Clear); Urine Color Light-Yellow (Yellow); Urine Glucose 4+ (Over) (Negative); Urine Protein NEGATIVE (Negative); Urine Urobilinogen Normal (Normal)
[2022-03-24 05:58] LABS: Magnesium 2.2 mg/dL (1.6-2.4); Phosphorus 3.1 mg/dL (2.5-4.9); Potassium 3.8 mmol/L (3.5-5.1)
[2022-03-24] MEDS: INSULIN -REGULAR HUMAN 50 UNIT/0.5 ML ML SQ SCH ×4 (07:30→21:00)
[2022-03-24] MEDS ORDERED: POTASSIUM CL SA 10 MEQ TAB PO ONE ×2 (09:00)
[2022-03-24] MEDS: TAMSULOSIN 0.4 MG SR CAP PO SCH (10:03)
[2022-03-24] MEDS: BUPROPION HCL XL 150 MG TAB PO SCH ×2 (10:03→21:09)
--- NOTE | 2022-03-24 12:10 | RAD REPORT ---
EXAM DESCRIPTION: MRI - Brain W/Wo Cont - 03/24/2022 11:47 am CLINICAL HISTORY: dizziness, weakness COMPARISON: MRA Head Wo Cont dated 03/24/2022; Ct Stroke Brain Wo Cont dated 03/22/2022 TECHNIQUE: Sagittal and axial T1-weighted images were obtained. Axial PD/heavily T2-weighted and T2- FLAIR images were obtained along with axial DWI/ADC mapping sequences. Coronal heavily T2 weighted s equence obtained. Axial and coronal post-contrast T1-weighted images were also obtained. A 18 ml Mul tihance contrast following utilized. FINDINGS: No intracranial hemorrhage, mass or acute infarction. There is no edema or shift of midli ne structures. No extra-axial fluid collections. Torres-matter/white matter junction is preserved. Sig nal voids are seen as a normal finding in the major intracranial vessels. Moderate severity chronic i schemic changes scattered throughout the cerebral white matter and mildly in the brainstem. Mild atro phy changes are present with ventricles in proportion to volume loss. Post-contrast images show normal enhancement. No dural thickening. Mastoid air cells and paranasal sinuses are clear of acute disease. No sella or supra sella abnormality. IMPRESSION: Atrophy and chronic ischemic changes are present as detailed. No hemorrhage, acute infar ction or other acute intracranial finding seen.
--- NOTE | 2022-03-24 12:12 | RAD REPORT ---
EXAM DESCRIPTION: MRI - MRA Head Wo Cont - 03/24/2022 11:47 am CLINICAL HISTORY: CVA, dizziness COMPARISON: CT head 03/22/2022, MRI brain 03/24/2022 TECHNIQUE: Axial and coronal 3D [id number] image acquisition was performed. 3D rotational images were generated with source and reconstruction images reviewed. Horizontal and vertical axis rotation al views generated using MIP protocol. FINDINGS: No aneurysm or vascular malformation present. No named branch occlusion, dissection, vascu litis or significant atherosclerotic change identifiable. Vertebrobasilar vasculature is mildly tortu ous but without focal abnormality. IMPRESSION: MR brain showing no significant or suspicious finding.
[2022-03-24] MEDS: DAPAGLIFLOZIN PO SCH (16:26)
[2022-03-24] MEDS: METFORMIN HCL PO SCH (16:26)
[2022-03-24] MEDS: [UNRECOGNIZED DRUG - OTHER] PO SCH (16:26)
--- NOTE | 2022-03-24 20:06 | P.PN ---
Subjective Date of Service: 03/24/22 Chief Complaint: Dizziness No acute events overnight. He reports that his shortness of breath is improving. He denies any fevers, chills, cough, or dyspnea. Review of Systems 10-point ROS is otherwise unremarkable Respiratory: Shortness of Breath (improved) Neurological: Other (dizziness) Physical Examination - Vital Signs Temperature: 97.5 F Blood Pressure: 153/73 Pulse: 70 Respirations: 19 Pulse Ox (%): 92 - Physical Exam General: Alert, In no apparent distress, Oriented x3 HEENT: Atraumatic, PERRLA, Mucous membr. moist/pink, EOMI, Sclerae nonicteric Neck: JVD not distended Respiratory: Rhonchi/gurgles (faint) Cardiovascular: No edema, Regular rate/rhythm, Normal S1 S2, No gallops, No rubs, No murmurs Gastrointestinal: Normal bowel sounds, Soft and benign, Non-distended, No tenderness, No rebound, No guarding Musculoskeletal: No clubbing Integumentary: No rashes Neurological: Normal speech, Cranial nerves 3-12 intact, Normal affect - Studies Microbiology Data (last 24 hrs): 03/22/22 21:33 Blood - Blood Anaerobic Blood Culture - Final 03/22/22 21:30 Blood - Blood Anaerobic Blood Culture - Final Assessment And Plan - Plan # Suspected Community Acquired Pneumonia - Procalcitonin = pending - Chest x-ray = "coarsened interstitium with more focal opacities at the lung bases concerning for pneumonia." - Continue ceftriaxone + azithromycin - Supplemental oxygen to maintain SpO2 > 92% - Encouraged incentive spirometry # Type II Diabetes Mellitus complicated by Diabetic Neuropathy - Correction scale insulin - Continue home gabapentin # Hypertension - Continue home losartan, amlodipine # Dyslipidemia - Continue home atorvastatin # Benign Prostatic Hyperplasia - Continue home tamsulosin # Dizziness - Plan to obtain MRI to evaluate for posterior circulation CVA - PT consulted # Tobacco Use Disorder - Tobacco cessation counseling - Continue home bupropion - Nicotine patch available Jorge Meza M.D.
[2022-03-25] MEDS: AZITHROMYCIN IV 500 MG in NA CHLORIDE 0.9% 250 ML IVPB SCH ×2 (01:41→09:00)
[2022-03-25] MEDS: CEFTRIAXONE 1,000 MG in NA CHLORIDE 0.9% 50 ML IVPB SCH ×2 (01:41→08:31)
[2022-03-25] MEDS ORDERED: PANTOPRAZOLE 40MG TABLET PO SCH (06:30)
[2022-03-25] MEDS: INSULIN -REGULAR HUMAN 50 UNIT/0.5 ML ML SQ SCH (07:30)
--- NOTE | 2022-03-25 08:02 | RAD REPORT ---
EXAM DESCRIPTION: Dion Single View03/25/2022 5:29 am CLINICAL HISTORY: Cough COMPARISON: 2016 and February 2022 FINDINGS: Bilateral interstitial lung opacities without significant change. Normal heart size IMPRESSION: Bilateral interstitial lung opacities. I suspect most if not all represent pulmonary fibrosis
[2022-03-25 08:26] VITALS: BP 153/80; TEMP 97.7
[2022-03-25] MEDS: BUPROPION HCL XL 150 MG TAB PO SCH (08:33)
[2022-03-25] MEDS: TAMSULOSIN 0.4 MG SR CAP PO SCH (08:35)
--- NOTE | 2022-03-25 08:35 | P.DS ---
Admission Date: 03/22/22 Discharge Date: 03/25/22 Disposition: ROUTINE DISCHARGE Discharge Condition: GOOD Reason for Admission: Dizziness Consultations: 1. Neurology Hospital Course: DIAGNOSES: # Suspected Benign Paroxysmal Positional Vertigo # Concern for Community Acquired Pneumonia superimposed on Pulmonary Fibrosis # Type II Diabetes Mellitus complicated by Diabetic Neuropathy # Hypertension # Dyslipidemia # Benign Prostatic Hyperplasia # Tobacco Use Disorder HOSPITAL COURSE: Mr. Juan Luis Salgado is a pleasant 76-year-old male with a past medical history significant for type 2 diabetes mellitus, hypertension, dyslipidemia, benign prostatic hyperplasia, and tobacco use disorder who was admitted to the [facility] on 03/22/2022 for dizziness. He was admitted to the Medicine service. Upon further evaluation, his chest x- ray revealed, "coarsened interstitium with more focal opacities at the lung bases concerning for pneumonia." Due to the concern for pneumonia, he was started on IV antibiotics. To further evaluate his dizziness, a carotid ultrasound was obtained, which revealed, "no evidence of a hemodynamically significant stenosis. Hard plaque present at both carotid bulbs." His CT head revealed, "no acute intracranial abnormality. Mild to moderate chronic small vessel ischemic changes." His CT cervical spine revealed, "no fracture or traumatic malalignment of the cervical spine." His MRI brain revealed, "atrophy and chronic ischemic changes are present as detailed. No hemorrhage, acute infarction or other acute intracranial finding seen." MRA brain revealed, "MR brain showing no significant or suspicious finding." Following this evaluation, it was thought that his symptoms were secondary to benign positional paroxysmal vertigo. He ambulated around the nursing station today independently and did well. He stated that his symptoms have significantly improved. He has been cleared for discharge home with a Neurology follow-up for further evaluation. He was advised to have his chest x-ray repeated in 3-4 weeks to ensure resolution of his bilateral lung opacities. On 03/25/2022, he was seen on morning rounds and deemed medically stable for discharge. He was discharged with instructions to schedule follow-up appointments with his PCP, with Pulmonary Medicine (Dr. Jones), and with Neurology (Dr. Valentin). He was provided prescriptions for meclizine and azithromycin. He was given the opportunity to ask questions and reported no further questions. Furthermore, all questions were answered to the best of my ability. A copy of this discharge summary will be sent to the above providers to facilitate continuity of care. Today, I personally spent 25 minutes on his case, of which greater than 50% of the time was spent in patient education, counseling, and coordination of care as described above. - Physical Exam General: Alert, In no apparent distress, Oriented x3 HEENT: Atraumatic, Mucous membr. moist/pink, Sclerae nonicteric Neck: JVD not distended Respiratory: Diminished, with faint scattered rhonchi Cardiovascular: No edema, Regular rate/rhythm, Normal S1 S2, No gallops, No rubs, No murmurs Gastrointestinal: Normal bowel sounds, Soft and benign, Non-distended, Musculoskeletal: No clubbing Integumentary: No rashes Neurological: Normal speech, Normal affect, Normal gait Vital Signs/Physical Exam: Temp Pulse Resp BP Pulse Ox 97.7 F 70 16 153/80 H 92 03/25/22 08:00 03/25/22 08:00 03/25/22 08:00 03/25/22 08:00 03/25/22 08:00 Laboratory Data at Discharge: WBC 9.10 K/uL (4.3-10.9) 03/23/22 03:35 Hgb 14.3 g/dL (13.6-17.9) 03/23/22 03:35 Hct 42.7 % (39.6-49.0) 03/23/22 03:35 Plt Count 226 K/uL (152-406) 03/23/22 03:35 PT 11.5 SECONDS (9.5-12.5) 03/22/22 19:27 INR 1.05 03/22/22 19:27 Sodium 139 mmol/L (136-145) 03/24/22 04:47 Potassium 3.7 mmol/L (3.5-5.1) 03/25/22 06:10 BUN 14 mg/dL (7-18) 03/24/22 04:47 Creatinine 0.82 mg/dL (0.70-1.30) 03/24/22 04:47 Glucose 99 mg/dL (74-106) 03/24/22 04:47 Phosphorus 3.1 mg/dL (2.5-4.9) 03/24/22 04:47 Magnesium 2.2 mg/dL (1.6-2.4) 03/24/22 04:47 Total Bilirubin 0.3 mg/dL (0.2-1.0) 03/22/22 19:27 AST 16 U/L (15-37) 03/22/22 19:27 ALT 17 U/L (16-61) 03/22/22 19:27 Alkaline Phosphatase 83 U/L (45-117) 03/22/22 19:27 Triglycerides 65 mg/dL (<150) 03/23/22 03:35 Cholesterol 114 mg/dL (<200) 03/23/22 03:35 HDL Cholesterol 46 mg/dL (40-60) 03/23/22 03:35 Cholesterol/HDL Ratio 2.48 03/23/22 03:35 Home Medications: Bupropion HCl [Wellbutrin Xl] 150 mg PO BID 03/23/22 Dapagliflozin/Metformin HCl [Xigduo Xr 5 mg-1,000 mg Tablet] 2 tab PO DAILY AT SUPPER 03/23/22 Tamsulosin HCl [Flomax] 1 cap PO DAILY 03/23/22 Albuterol Inhaler [Ventolin Inhaler*] 2 puff IH Q4HP PRN 03/24/22 Amlodipine [Norvasc*] 5 mg PO DAILY 03/24/22 Atorvastatin Calcium 10 mg PO DAILY 03/24/22 Citalopram [Celexa*] 20 mg PO DAILY 03/24/22 Fluticasone/Umeclidin/Vilanter [Trelegy Ellipta 100-62.5-25] 1 puff IH DAILY 03/24/22 Gabapentin 300 mg PO TID 03/24/22 Losartan Potassium [Cozaar] 25 mg PO DAILY 03/24/22 Omeprazole 20 mg PO DAILY 03/24/22 Azithromycin Tab [Zithromax*] 250 mg PO ZPAK #1 david 03/25/22 Meclizine HCl 12.5 mg PO Q6HR PRN 7 Days #28 tab 03/25/22 New Medications: Meclizine HCl 12.5 mg PO Q6HR PRN 7 Days #28 tab PRN Reason: Dizziness Azithromycin Tab [Zithromax*] 250 mg PO ZPAK #1 david Physician Discharge Instructions: 1. Please call and schedule a follow-up appointment with your PCP in 3-5 days 2. Please call and schedule a follow-up appointment with Neurology (Dr. Valentin) in 1-2 weeks 3. Please call and schedule a follow-up appointment with Pulmonary Medicine (Dr. Jones) in 1-2 weeks Diet: Regular Activity: Fall precautions Followup: Scott Valentin MD [ASSOCIATE-ACTIVE - CAN ADMIT] - Ezekiel Jones MD [ACTIVE - CAN ADMIT] - Time spent managing pt's care (in minutes): 25
--- NOTE | 2022-03-25 08:36 | EKG ---
Test Date: 2022-03-22 Test Time: 21:22:07 Senior Occupational Therapist: MEASUREMENT RESULTS: Intervals: Rate: 59 UT: 168 QRSD: 94 QT: 420 QTc: 415 [place]: P: 66 UT: 168 QRS: -48 T: 60 INTERPRETIVE STATEMENTS: Sinus bradycardia Left anterior fascicular block Abnormal ECG Compared to ECG 06/26/2020 07:52:00 Left anterior fascicular block now present Sinus rhythm no longer present Left-axis deviation no longer present T-wave abnormality no longer present Electronically Signed On 03-25-22 08:32:46 CLE[employer]ING VALIDATION CONSULTANT by Reynaldo Joiner
[2022-03-25] MEDS ORDERED: LOSARTAN POTASSIUM 50 MG TABLET PO SCH (09:00)
[2022-03-25] MEDS ORDERED: CITALOPRAM 10 MG TABLET PO SCH (09:00)
[2022-03-25] MEDS ORDERED: ATORVASTATIN 10 MG TAB PO SCH (09:00)
[2022-03-25] MEDS ORDERED: GABAPENTIN 300 MG CAP PO SCH (09:00)
[2022-03-25] MEDS ORDERED: AMLODIPINE 5 MG TAB PO SCH (09:00)
[2022-03-25] MEDS ORDERED: [UNRECOGNIZED DRUG - OTHER] IH SCH ×2 (09:00)
[2022-03-25 13:00] VITALS: O2SAT 92
== END 2022-03-25 11:15 | disposition home or self-care (01) | DRG 195 ==
LOC: ER 18:52 → ERHOLD 23:21 → 4TH 03-23 00:06
PROVIDERS: ADMIT Internal Medicine Sleep Medicine; ATTEND Internal Medicine
DX: J18.9 Pneumonia, unspecified organism (principal); J43.9 Emphysema, unspecified; I10 Essential (primary) hypertension; E78.5 Hyperlipidemia, unspecified; J84.10 Pulmonary fibrosis, unspecified; N40.0 Benign prostatic hyperplasia without lower urinary tract symptoms; H81.10 Benign paroxysmal vertigo, unspecified ear; E11.65 Type 2 diabetes mellitus with hyperglycemia; E11.40 Type 2 diabetes mellitus with diabetic neuropathy, unspecified; F17.210 Nicotine dependence, cigarettes, uncomplicated; Z88.6 Allergy status to analgesic agent; Z88.0 Allergy status to penicillin; Z91.81 History of falling; Z79.84 Long term (current) use of oral hypoglycemic drugs; Z96.651 Presence of right artificial knee joint; Z79.899 Other long term (current) drug therapy; Z20.822 Contact with and (suspected) exposure to COVID-19; W18.30XA Fall on same level, unspecified, initial encounter
CPT/HCPCS: 0240U; 36415; 70450; 70544; 70553; 71045; 72125; 80048; 80061; 80076; 81003; 82947; 83036; 83605; 83735; 83880; 84100; 84132; 84145; 84443; 84484; 85025; 85610; 87040; 87086; 87088; 93005; 93880; 94010; 94640; 94760; 96361; 96365; 96367; 96375; 97112; 97116; 97161; 99285; A9577; J0456; J2920; J2930; J7030; J7040; J7050; J7613; J7644